=== PATIENT | female | born 1945 | race Caucasian/White ===

== ENCOUNTER → 2017-06-04 | Outpatient (CLI) | payer MEDICARE ==
[~2017-06-04] MED LIST: ADVAIR 500/501 EA INH; ASA81 MG PO; ASPIR 8181 MG PO; B COMPLEX WITH1 EACH PO; B COMPLEX1 EACH PO; BENZONATATE100 MG PO; CARVEDILOL3.125 MG PO; CEFUROXIME250 MG PO; CELEBREX100 MG PO; CO Q-10200 MG PO; CYMBALTA30 MG PO; DICYCLOMINE HCL10 MG PO; DILAUDID2 MG PO; ELAVIL25 MG PO; FAMOTIDINE20 MG PO; HUMALOG100 UNIT/1 SC; HYDROXYZINE HCL25 MG PO; LEVEMIR100 UNIT/1 SC; LEVEMIR100 UNIT/1 SQ; LIDOCAINE; LIDODERM PATCH1 EA; LOSARTAN POTASS25 MG PO; MIRTAZAPINE15 MG PO; MONTELUKAST SOD10 MG PO; MULTAQ 400MG T400 MG PO; NITROGLYCERIN0.4 MG SL; NOVOLOG100 UNIT/1 SQ; OMEGA 3 1,0001 EACH PO; OMEGA-31000 MG PO; OMEPRAZOLE40 MG PO; PROBIOTIC & AC1 EACH PO; ROPINIROLE HCL1 MG PO; XOPENEX HFA15 GM INH; Z.0.ADVAIR 500/501 E; Z.0.ALIGN4 MG PO; Z.0.ALLEGRA180 MG PO; Z.0.AMBIEN CR12.5 MG PO; Z.0.CELEBREX100 MG PO; Z.0.CYMBALTA30 MG PO; Z.0.FORTAMET500 MG PO; Z.0.HEMOCYTE PLUS1 E PO; Z.0.LOSARTAN POTAS10 PO; Z.0.PEPCID40 MG PO; Z.0.PROTONIX40 MG PO; Z.0.SINGULAIR10 MG PO; ZOFRAN ODT4 MG PO; ZYRTEC10 M3 PO; [UNRECOGNIZED DRUG - OTHER] PO; [UNRECOGNIZED DRUG - OTHER] PO; [UNRECOGNIZED DRUG - REMARK] PO
--- NOTE | 2017-06-04 14:15 | Diagnostic Imaging Report ---
PROCEDURE: CT CHEST WITHOUT CONTRAST CT scan of the chest WITHOUT intravenous contrast, using standard protocol. TECHNIQUE: The chest was scanned utilizing a multidetector helical scanner from the apex to the level of the adrenal glands. No IV contrast was administered per physician's request. Coronal and sagittal multiplanar reformations were obtained. COMPARISON: Patients [facility], CT, CT CHEST WO, 07/10/2016, 12:28. INDICATIONS: SHORTNESS OF BREATH FINDINGS: Lines/tubes: None. Lungs and Airways: Stable bilateral lower lobe, lingular, right upper lobe and right middle lobe linear opacities, consistent with scarring. The no consolidation, pulmonary nodules or masses. Stable 1.3 cm, thin-walled cyst in the lingula (series 3, image 54). Stable calcified granuloma in the right middle lobe (series 2, image 64). Airways are clear, without endobronchial lesions. Pleura: No effusion, or pneumothorax. Heart and mediastinum: Stable 1.5 x 1.8 cm nodular density in the left thyroid lobe, with scattered peripheral calcifications. Stable hypodensity in the right thyroid lobe measuring 1.2 x 1.0 cm, with associated dystrophic calcifications (series 2, image 3). Partially visualized 1.8 x 1.4 cm oval-shaped density between the posterior aspect of the right thyroid lobe and the esophagus (series 2, image 1), which is relatively stable when compared to the prior exam. This structure measures fluid density on the current exam, and previously measured soft tissue density. Lymph nodes: No mediastinal, hilar, or axillary adenopathy. Abdomen: Limited views of the upper abdomen show no abnormality within the visualized liver, spleen, or left kidney. Fatty replacement of the pancreas, without focal lesions or dilation.. The adrenal glands are normal. Bones: No aggressive lytic lesion. Soft tissues are grossly unremarkable. IMPRESSION: 1. stable bilateral lower lobe, right upper lobe, lingular, and right middle lobe scarring. No consolidation, nodules, or masses. 2. Stable bilateral thyroid lobe hypodense lesions with associated calcifications, likely reflecting nodules. Dedicated thyroid ultrasound would be helpful for further evaluation. 3. Partially visualized oval shaped density between the posterior aspect of the right thyroid lobe in the esophagus is indeterminate. Although this structure measured soft tissue density on the prior CT, it measures fluid density on the current exam. This may represent an esophageal duplication cyst or diverticulum or less likely bronchogenic cyst. Parathyroid adenoma is still a consideration. Correlate with serum calcium and intact PTH. Osmani Caro M.D. Dictated by: Osmani Caro M.D. on 06/04/2017 at 14:15 Electronically approved by: Osmani Caro M.D. on 06/04/2017 at 14:15
== END ==
LOC: CT 12:51
PROVIDERS: ATTEND Internal Medicine Pulmonary Disease
DX: R06.02 Shortness of breath (principal)
CPT/HCPCS: 71250

== ENCOUNTER → 2017-09-10 | Outpatient (CLI) | payer MEDICARE ==
--- NOTE | 2017-09-10 17:35 | Diagnostic Imaging Report ---
PROCEDURE: Frontal and lateral views of the chest. COMPARISON: Patients [facility], CT, CT CHEST WO, 06/04/2017, 13:33. Patients [facility], DX, CHEST 2 VIEWS, 01/22/2017, 16:54. INDICATIONS: PULMONARY FIBROSIS FINDINGS: Lines/tubes: None. Lungs: The lungs are well inflated. Stable scarring in the right midlung. There is no evidence of pneumonia or pulmonary edema. Pleura: There is no pleural effusion or pneumothorax. Heart and mediastinum: Enlarged cardiac silhouette. Pulmonary vasculature is normal. The Bones: No acute bony abnormality. IMPRESSION: 1. stable scarring in the right midlung. Enlarged cardiac silhouette, without consolidation or pulmonary edema. Osmani Caro M.D. Dictated by: Osmani Caro M.D. on 09/10/2017 at 17:37 Electronically approved by: Osmani Caro M.D. on 09/10/2017 at 17:37
== END ==
LOC: RAD 15:54
PROVIDERS: ATTEND Internal Medicine Pulmonary Disease
DX: R52 Pain, unspecified (principal); J84.10 Pulmonary fibrosis, unspecified
CPT/HCPCS: 71046

== ENCOUNTER 2017-09-29 15:47 | Emergency (ER) | payer MEDICARE ==
[~2017-09-29] VITALS: Ht 157.5 cm; Wt 83.9 kg
[2017-09-29 19:14] LABS: BASOPHILS # (AUTO) 0.1 (0.0-0.1); BASOPHILS % 0.5 % (0.0-1.0); EOSINOPHILS # (AUTO) 0.4 (0.0-0.4); EOSINOPHILS % 2.3 % (0.0-6.0); HEMATOCRIT 44.2 % (34.2-44.1); HEMOGLOBIN 14.4 g/dL (12.0-16.0); LYMPHOCYTES # (AUTO) 5.5 (1.0-3.2); LYMPHOCYTES % 32.8 % (18.0-39.1); MEAN CORPUSCULAR HEMOGLOBIN 29.4 pg (28-32); MEAN CORPUSCULAR HGB CONC 32.6 g/dL (31-35); MEAN CORPUSCULAR VOLUME 90.4 fL (81-99); MONOCYTES # (AUTO) 1.1 (0.2-0.8); MONOCYTES % 6.7 % (4.4-11.3); NEUTROPHILS # (AUTO) 9.7 (2.1-6.9); NEUTROPHILS % 57.3 % (38.7-80.0); PLATELET COUNT 398 x10e3/uL (140-360); RED BLOOD COUNT 4.89 x10e6/uL (3.6-5.1); RED CELL DISTRIBUTION WIDTH 13.6 % (11.7-14.4)
[2017-09-29 19:17] LABS: BILIRUBIN,URINE NEGATIVE (NEGATIVE); CLARITY,URINE SL CLOUDY (CLEAR); COLOR,URINE YELLOW (YELLOW); KETONES,URINE NEGATIVE (NEGATIVE); LEUKOCYTE ESTERASE ,URINE 1+ (NEGATIVE); NITRITE,URINE NEGATIVE (NEGATIVE); PROTEIN,URINE DIPSTICK NEGATIVE (NEGATIVE); URINE UROBILINOGEN 0.2 mg/dL (0.2 - 1)
[2017-09-29 19:24] LABS: PROTHROMBIN TIME 12.4 seconds (11.9-14.5)
[2017-09-29 19:25] LABS: PARTIAL THROMBOPLASTIN TIME 27.9 seconds (23.8-35.5)
[2017-09-29 19:28] LABS: BACTERIA,URINE FEW /HPF; EPITHELIAL CELLS,URINE MODERATE /LPF; TRANSITIONAL EPI CELLS,URINE FEW
[2017-09-29 19:34] LABS: ALANINE AMINOTRANSFERASE 14 IU/L (0-55); ALBUMIN 3.7 g/dL (3.5-5.0); ALKALINE PHOSPHATASE 70 IU/L (40-150); ANION GAP 13.4 mmol/L (8-16); BLOOD UREA NITROGEN 16 mg/dL (7-26); BUN/CREATININE RATIO 22 (6-25); CALCIUM 9.7 mg/dL (8.4-10.2); CARBON DIOXIDE 32 mmol/L (22-29); CHLORIDE 97 mmol/L (98-107); CREATINE KINASE 17 IU/L (29-168); CREATININE, SERUM 0.72 mg/dL (0.57-1.11); EST GLOMERULAR FILTRATION RATE > 60 ML/MIN (60-); GLUCOSE 104 mg/dL (74-118); POTASSIUM 4.4 mmol/L (3.5-5.1); SODIUM 138 mmol/L (136-145)
--- NOTE | 2017-09-29 19:46 | Diagnostic Imaging Report ---
EXAMINATION: CHEST SINGLE (PORTABLE) INDICATION: Pain. Shortness of breath. COMPARISON: None FINDINGS: AP view TUBES and LINES: None. LUNGS: Lungs are well inflated. There are bibasilar atelectasis. Peribronchial cuffing. There is no evidence of pneumonia or pulmonary edema. PLEURA: Small left pleural effusion. HEART AND MEDIASTINUM: Cardiac size is mildly enlarged. BONES AND SOFT TISSUES: No acute osseous lesion. Soft tissues are unremarkable. UPPER ABDOMEN: No free air under the diaphragm. IMPRESSION: 1. Bilateral peribronchial cuffing, which could represent viral etiology or reactive airway disease. This however can be accentuated by the suboptimally inflated lungs. 2. Small left pleural effusion. Signed by: Dr. Alessandro Vidales M.D. on 09/29/2017 7:42 PM
--- NOTE | 2017-09-29 19:47 | Diagnostic Imaging Report ---
Examination: CT head without contrast Clinical Indication: Fall; headaches; nausea. Technique: Transaxial noncontrast images from the skull base through the vertex were obtained. Sagittal and coronal reformatted images were done. Comparison: None. Findings: Scalp: No abnormalities. Bones: Intact. No fractures. No blastic or lytic lesions. Brain sulci: Mild volume loss for patient's age. Ventricles: No hydrocephalus. Extra-axial space: No abnormalities. Parenchyma: There are subtle confluent areas of low-attenuation within subcortical and periventricular white matter, nonspecific, but could represent microvascular ischemic disease. No masses, hemorrhage, or acute or chronic cortical based vascular insults. Suprasellar region: No abnormalities. Craniocervical junction: The foramen magnum is patent. No Chiari one malformation. Incidental findings: Atherosclerotic calcification of the cavernous and supraclinoid internal carotid arteries. Impression: 1. No acute intracranial finding. 2. Mild chronic microvascular ischemic change and mild volume loss. Signed by: Dr. Nazia Bean M.D. on 09/29/2017 7:43 PM
--- NOTE | 2017-09-29 19:53 | Diagnostic Imaging Report ---
Examination: CT CERVICAL SPINE WITHOUT CONTRAST HISTORY:Neck pain. Fall. COMPARISON:None. TECHNIQUE: Multidetector helical axial images were obtained without contrast from the foramen magnum to T1. Coronal and sagittal reformatted images were done. Bone and soft tissue windows were evaluated. FINDINGS: Alignment:Normal alignment and lordosis. Vertebrae: Normal height and density. No acute fracture, infection or neoplasm. Disc space heights: Normal height. Caliber of spinal canal: Developmentally normal. Posterior fossa and craniocervical junction: Foramen magnum patent. No Chiari 1 malformation. Soft tissues: No abnormality. Degenerative changes: Anterior osteophytosis from C4 through T1. No disc bulge/ herniation or foraminal or canal stenosis. IMPRESSION: No acute abnormalities. Signed by: Dr. Nazia Bean M.D. on 09/29/2017 7:49 PM
[2017-09-29 19:55] LABS: LYMPHOCYTES % (MANUAL) 34 % (19-48); MONOCYTES % (MANUAL) 6 % (3.4-9.0); NEUTROPHILS % (MANUAL) 56 % (40-74); PLATELET ESTIMATE ADEQUATE; PLATELET MORPHOLOGY COMMENT FEW LARGE; RBC MORPHOLOGY COMMENT NORMAL
[2017-09-29] MEDS ORDERED: KETOROLAC TROMETHAMINE 30 MG/ML VIAL IV NR (20:01)
[2017-09-29] MEDS ORDERED: CEFTRIAXONE SOD 1 GM VIAL IV NR (20:01)
[2017-09-29] MEDS ORDERED: DIPHENHYDRAMINE HCL INJ 50 MG/ML VIAL IV NR (20:02)
[2017-09-29] MEDS ORDERED: SODIUM CHLORIDE 0.9% 500ML 500 ML IV STA (20:15)
[2017-09-29] MEDS ORDERED: SODIUM CHLORIDE 0.9% 500ML 500 ML IV ONE (20:15)
[2017-09-29] MEDS ORDERED: METOCLOPRAMIDE HCL 10 MG/2ML VIAL IV NR (20:15)
[2017-09-29] MEDS ORDERED: ONDANSETRON HCL INJ 2 MG/ML VIAL IV NR (20:30)
[2017-09-29] MEDS ORDERED: CEFTRIAXONE SOD 1 GM VIAL IV SCH (20:45)
[2017-09-29 22:25] VITALS: BP 136/60
== END 2017-09-29 23:10 | disposition home or self-care (01) ==
LOC: ER 15:47
DX: R51 Headache (principal); R11.0 Nausea; N39.0 Urinary tract infection, site not specified; E11.9 Type 2 diabetes mellitus without complications; M79.7 Fibromyalgia; J44.9 Chronic obstructive pulmonary disease, unspecified
CPT/HCPCS: 36415; 70450; 71045; 72125; 80053; 81001; 82550; 82553; 84484; 85025; 85610; 85730; 87086; 93005; 99284; J0696; J1200; J1885; J2765; J7040

== ENCOUNTER → 2017-11-03 | Day surgery (SDC) | payer MEDICARE ==
[2017-11-02 17:46] LABS: BASOPHILS # (AUTO) 0.1 (0.0-0.1); BASOPHILS % 0.3 % (0.0-1.0); EOSINOPHILS # (AUTO) 0.3 (0.0-0.4); EOSINOPHILS % 2.3 % (0.0-6.0); HEMATOCRIT 40.9 % (34.2-44.1); HEMOGLOBIN 13.1 g/dL (12.0-16.0); LYMPHOCYTES # (AUTO) 4.3 (1.0-3.2); LYMPHOCYTES % 29.4 % (18.0-39.1); MEAN CORPUSCULAR HEMOGLOBIN 29.3 pg (28-32); MEAN CORPUSCULAR VOLUME 91.5 fL (81-99); MONOCYTES % 6.9 % (4.4-11.3); NEUTROPHILS # (AUTO) 8.8 (2.1-6.9); NEUTROPHILS % 60.8 % (38.7-80.0); PLATELET COUNT 318 x10e3/uL (140-360); RED BLOOD COUNT 4.47 x10e6/uL (3.6-5.1); RED CELL DISTRIBUTION WIDTH 13.3 % (11.7-14.4)
[~2017-11-03] MED LIST changes: +CLOTRIMAZOLE-BE15 GM TOP; +DILAUDID IJ; +ECONAZOLE NITRA15 GM TOP; +FENTANYL CITRATE/PF 100MCG/2 ML INJ ONE; +LIDOCAINE HCL 2% LOCAL INJ 5 ML SDV VIAL INJ ONE; +LIDODERM PATCH TD; +MIDAZOLAM HCL 2 MG/2 ML VIAL ONE; +PROPOFOL IV EMULSION 10 MG/ML 50 ML VIAL ONE; +TYLENOL WITH C1 EACH PO; +VITAMIN D1000 UNI1 PO; +XOPENEX0.63 MG/3 NEB
== END | disposition home or self-care (01) ==
LOC: OR 06:01
PROVIDERS: ATTEND Internal Medicine Gastroenterology
DX: K21.0 Gastro-esophageal reflux disease with esophagitis (principal); K29.50 Unspecified chronic gastritis without bleeding; B96.81 Helicobacter pylori [H. pylori] as the cause of diseases classified elsewhere; K44.9 Diaphragmatic hernia without obstruction or gangrene; J44.9 Chronic obstructive pulmonary disease, unspecified; I10 Essential (primary) hypertension; E78.5 Hyperlipidemia, unspecified; E11.9 Type 2 diabetes mellitus without complications; M79.7 Fibromyalgia; M19.90 Unspecified osteoarthritis, unspecified site; R42 Dizziness and giddiness; F32.9 Major depressive disorder, single episode, unspecified; F41.9 Anxiety disorder, unspecified; Z88.8 Allergy status to other drugs, medicaments and biological substances; Z88.6 Allergy status to analgesic agent; Z88.3 Allergy status to other anti-infective agents; Z91.041 Radiographic dye allergy status; Z01.810 Encounter for preprocedural cardiovascular examination; Z01.812 Encounter for preprocedural laboratory examination; Z79.82 Long term (current) use of aspirin; Z99.81 Dependence on supplemental oxygen; Z79.4 Long term (current) use of insulin; Z68.34 Body mass index [BMI] 34.0-34.9, adult; Z87.01 Personal history of pneumonia (recurrent); Z80.0 Family history of malignant neoplasm of digestive organs
CPT/HCPCS: 36415 ×2; 43239; 82948; 85025; 88305; 88312; 93005; J2001; J2250

== ENCOUNTER → 2018-03-15 | Outpatient (CLI) | payer MEDICARE ==
[~2018-03-15] MED LIST changes: -FENTANYL CITRATE/PF 100MCG/2 ML INJ ONE; -LIDOCAINE HCL 2% LOCAL INJ 5 ML SDV VIAL INJ ONE; -MIDAZOLAM HCL 2 MG/2 ML VIAL ONE; -PROPOFOL IV EMULSION 10 MG/ML 50 ML VIAL ONE
--- NOTE | 2018-03-15 19:17 | Diagnostic Imaging Report ---
EXAMINATION: CHEST 2 VIEWS INDICATION: ACUTE BRONCHITIS COMPARISON: 09/29/2017. FINDINGS: TUBES and LINES: None. LUNGS: Platelike atelectasis in the right midlung. Mild patchy density in the lung bases suggestive of subsegmental atelectasis. Mild bilateral perihilar peribronchial thickening perihilar streaky densities. There is no evidence of pneumonia or pulmonary edema. PLEURA: No pleural effusion or pneumothorax. HEART AND MEDIASTINUM: The cardiac silhouette is mildly enlarged. Calcification of the aortic arch. BONES AND SOFT TISSUES: No acute osseous lesion. Soft tissues are unremarkable. UPPER ABDOMEN: No free air under the diaphragm. IMPRESSION: Mild bilateral perihilar peribronchial thickening and perihilar streaky densities may represent viral infection versus reactive airway disease. No consolidation. Signed by: Dr. Meño Beckman M.D. on 03/15/2018 7:14 PM
== END ==
LOC: RAD 17:43
PROVIDERS: ATTEND Internal Medicine
DX: J20.9 Acute bronchitis, unspecified (principal)
CPT/HCPCS: 71046

== ENCOUNTER → 2018-06-01 | Day surgery (SDC) | payer MEDICARE ==
[~2018-06-01] MED LIST changes: +COQ-10100 MG PO; +EPHEDRINE SULFATE INJ 50 MG/10 ML SYR ONE; +HUMALOG MI100 UNIT/4 SQ; +NORCO 7.5-3251 EACH PO; +PHENYLEPHRINE HCL 1% 10 MG/ML VIAL ONE; +PROBIOTIC PO; +PROPOFOL IV EMULSION 10 MG/ML 50 ML VIAL ONE; +SPIRIVA18 MCG INH
--- OUTSIDE RECORDS SUMMARY | 2018-06-01 06:52 | XMS REPORT | Continuity of Care Document ---
Author Author [facility] Interface Address Unknown Phone Unavailable Problems Problem Status Onset Date Classification Date Reported Comments Source Pneumonia Active 04/23/2015 Problem 09/30/2017 [facility] BACK PAIN Active 09/12/2012 [facility] 724.6, ANKYLOSIS OF LUMBOSACRAL JOINT Active 09/03/2012 [facility] Asthma Resolved Problem 09/17/2012 [facility] Chronic pain<sup>1</sup> Resolved Problem 09/17/2012 1Lumbar spine [facility] Diabetes mellitus Resolved Problem 09/17/2012 [facility] GERD - Gastro-esophageal reflux disease Resolved Problem 09/17/2012 [facility] HTN - Hypertension Resolved Problem 09/17/2012 [facility] Anemia Active Problem 09/30/2017 [facility] Leukocytosis Active Problem 09/30/2017 [facility] SPINAL STENOSIS NOS Active [facility] Medications Medication Details Route Status Patient Instructions Ordering Provider Order Date Source Cefuroxime Axetil (Cefuroxime) 250 Mg Tablet Every 12 Hours Active [place] 11/13/2016 [facility] Dronedarone (Multaq 400MG Tablets*) 400 Mg Tab Twice Daily With Meals Active [place] 11/13/2016 [facility] Amitriptyline Hcl (Elavil) 25 Mg Tab, 1 Tab Oral Daily Active 05/31/2015 [facility] Aspirin (Asa) 81 Mg Tab, 1 Tab Oral Daily Active 05/31/2015 [facility] Benzonatate 100 Mg Capsule, 200 Mg Oral Three Times A Day Active 05/31/2015 [facility] Bifidobacterium Infantis (Align) 4 Mg Capsule, 2 Tab Oral Daily Active 05/31/2015 [facility] Celecoxib (Celebrex) 100 Mg Capsule, 2 Tab Oral Daily Active 05/31/2015 [facility] Cholestof , 1 Tab Oral Every 24 Hours as needed for Prn Active 05/31/2015 [facility] Dicyclomine Hcl 10 Mg Capsule, 1 Tab Oral Bedtime Active 05/31/2015 [facility] Duloxetine Hcl (Cymbalta) 30 Mg Capsule., 1 Tab Oral Daily Active 05/31/2015 [facility] Famotidine (Pepcid) 40 Mg Tablet, 1 Tab Oral Daily Active 05/31/2015 [facility] Fe Fumarate/Fa/Vit Bcomp&C/Min (Hemocyte Plus Capsule) 1 Each Capsule, 2 Tab Oral Daily Active 05/31/2015 [facility] Fexofenadine Hcl (Edel) 180 Mg Tablet, 1 Tab Oral Daily Active 05/31/2015 [facility] Hydrocodone Bit/Acetaminophen (Anexsia 7.5-650 Tablet) 1 Each Tablet, 1 Tab Oral As Needed Active 05/31/2015 [facility] Insulin Aspart (Novolog) 100 Unit/1 Ml Cartridge, 6 Units Sub-Q Before Meals And At Bedtime Active 05/31/2015 [facility] Insulin Detemir (Levemir) 100 Unit/1 Ml Vial, 28 Units Sub-Q Before Breakfast Active 05/31/2015 [facility] Lactobac Cmb #3/Fos/Pantethine (Probiotic & Acidophilus Cap) 1 Each Capsule, 1 Cap Oral Every 24 Hours as needed for Constipation Active 05/31/2015 [facility] Lidocaine (Lidoderm Patch) 1 Ea Patch, 1 As Needed Active 05/31/2015 [facility] Losartan Potassium 25 Mg Tablet, 25 Mg Oral Twice A Day Active 05/31/2015 [facility] Metformin Hcl (Fortamet) 500 Mg Tab.osm.24, 2 Tab Oral Daily Active 05/31/2015 [facility] Montelukast Sodium (Singulair) 10 Mg Tablet, 1 Tab Oral Daily Active 05/31/2015 [facility] Gervais-3 Fatty Acids/Fish Oil (Gervais 3 1,000 Mg Softgel) 1 Each Capsule, 1 Tab Oral Daily At 1700 Active 05/31/2015 [facility] Pantoprazole Sodium (Protonix) 40 Mg Tablet.dr, 1 Tab Oral Daily Active 05/31/2015 [facility] Plant Stanol Brunilda (Cholest Off) 450 Mg Tablet, 1800 Mg Oral Twice A Day Active 05/31/2015 [facility] Salmeterol Xinaf/Fluticasone (Advair 500/50) 1 Ea Aerp, 2 Daily Active 05/31/2015 [facility] Salmeterol Xinafoate/Fluticasone (Advair 500/50*) 1 Ea Aerp, 1 Puff Inhalation As Needed Active 05/31/2015 [facility] Vitamin B Complex & Vit C No.3 (B Complex With Vitamin C) 1 Each Capsule, 1 Tab Oral Daily At 1700 Active 05/31/2015 [facility] Zolpidem Tartrate (Ambien Cr) 12.5 Mg Tab.mphase, 1 Tab Oral Daily Active 05/31/2015 [facility] [place] 10/325 oral tablet 1 tab, Route: PO, Drug Form: TAB, Dosing Weight 75, kg, ONCE, Start date: 09/12/12 23:01:00, Stop date: 09/12/12 23:01:00 PO No Longer Active [place] 09/13/2012 [facility] [place] 10/325 oral tablet 1 tab, PO, Q6H, PRN, 24 tab, for pain, Substitution Allowed, Maintenance PO Active [place] 09/13/2012 [facility] Dilaudid 1 mg, 0.5 mL, Route: SUB-Q, Drug form: INJ, ONCE, Dosing Weight 75, kg, Start date: 09/12/12 21:59:00, Stop date: 09/12/12 21:59:00 SUB-Q No Longer Active [place] 09/13/2012 [facility] Vitamin B12 500 microgram, PO, Daily, Substitution Allowed PO Active 09/13/2012 [facility] Zyrtec 10 mg oral tablet 10 mg, 1 tab, PO, Daily, PRN, 30 tab, as needed for allergy symptoms, Substitution Allowed, TAB PO Active 09/13/2012 [facility] Voltaren Topical 1% topical gel 1 appl, TOP, QID, PRN, 100 gm, pain, Substitution Allowed, GEL TOP Active 09/13/2012 [facility] Dilaudid 1 mg, Route: SUB-Q, ONCE, Dosing Weight 75, kg, Start date: 09/12/12 20:50:00, Stop date: 09/12/12 20:50:00 SUB-Q No Longer Active [place] 09/13/2012 [facility] fentanyl 50 mcg, TOP, Q---Sa, Substitution Allowed, ERFILM TOP Active 09/13/2012 [facility] Lidoderm 5% topical film (patch) Substitution Allowed Active 09/13/2012 [facility] pantoprazole 40 mg oral enteric coated tablet 40 mg, 1 tab, PO, BID, 90 tab, Substitution Allowed, ECTAB PO Active 09/13/2012 [facility] glimepiride 1 mg oral tablet 1 mg, 1 tab, PO, Daily, 90 tab, Substitution Allowed, TAB PO Active 09/13/2012 [facility] Cymbalta 30 mg oral delayed release capsule 30 mg, 1 cap, PO, BID, 180 cap, Substitution Allowed, ECCAP PO Active 09/13/2012 [facility] montelukast 10 mg oral tablet 10 mg, 1 tab, PO, Bedtime, 90 tab, Substitution Allowed, TAB PO Active 09/13/2012 [facility] losartan 100 mg oral tablet 100 mg, 1 tab, PO, Daily, 90 tab, Substitution Allowed, TAB PO Active 09/13/2012 [facility] Ambien CR 6.25 mg oral tablet, extended release 6.25 mg, 1 tab, PO, Bedtime, PRN, for sleep, Substitution Allowed, ERTAB PO Active 09/13/2012 [facility] [place] 10/325 oral tablet 1 tab, PO, Q6H, PRN, 24 tab, for pain, Substitution Allowed, Maintenance PO Active 09/13/2012 [facility] Probiotic Formula oral capsule Substitution Allowed, Maintenance Active 09/13/2012 [facility] Celebrex 100 mg oral capsule 100 mg, 1 cap, PO, Daily, 180 cap, Substitution Allowed, CAP PO Active 09/13/2012 [facility] Aspirin (Aspir 81) 81 Mg Tablet. Daily Active [facility] Carvedilol 3.125 Mg Tablet Twice A Day Active [facility] Celecoxib (Celebrex*) 100 Mg Capsule Daily Active [facility] Cetirizine Hcl (Zyrtec) 10 Mg Capsule Daily Active THERAPEUTICALLY SUBSTITUTED WITH LORATIDINE 10MG [facility] Duloxetine Hcl (Cymbalta) 30 Mg Capsule. Twice A Day Active [facility] Famotidine 20 Mg Tab Daily Active [facility] Hydromorphone Hcl (Dilaudid) 2 Mg Tab Every 6 Hours as needed for Pain Active [facility] Hydroxyzine Hcl 25 Mg Tablet Every 6 Hours as needed for Itching Active [facility] Insulin Detemir (Levemir) 100 Unit/1 Ml Vial Daily Active [facility] Insulin Lispro (Humalog) 100 Unit/1 Ml Cartridge Three Times Daily With Meals Active [facility] Lactobac Cmb #3/Fos/Pantethine (Probiotic & Acidophilus Cap) 1 Each Capsule Daily Active [facility] Levalbuterol Tartrate (Xopenex Hfa) 15 Gm Hfa.aer.ad Every 4 Hours Active [facility] Lidodderm Patch Active [facility] Losartan Potassium 25 Mg Tablet Daily Active [facility] Mirtazapine 15 Mg Tab Daily Active [facility] Montelukast Sodium 10 Mg Tablet Daily Active [facility] Nitroglycerin 0.4 Mg Tab.subl Every 5 Minutes Active [facility] Gervais-3 Fatty Acids (Gervais-3) 1,000 Mg Capsule Daily Active [facility] Omeprazole 40 Mg Capsule. Daily Active [facility] Ondansetron (Zofran Odt) 4 Mg Tab.rapdis Every 8 Hours as needed for Nausea And Vomiting Active [facility] Ropinirole Hcl 1 Mg Tablet Bedtime Active [facility] Ubidecarenone (Co Q-10) 200 Mg Capsule Daily Active [facility] Vitamin B Complex (B Complex) 1 Each Tablet Daily Active [facility] Allergies, Adverse Reactions, Alerts Substance Category Reaction Severity Reaction type Status Date Reported Comments Source Nitroglycerin Rash Unknown Allergy to Substance Active 09/29/2017 [facility] Iodine Unknown Allergy to Substance Active 09/29/2017 [facility] Oxycodone Unknown Allergy to Substance Active 09/29/2017 [facility] Levofloxacin Unknown Allergy to Substance Active 09/29/2017 [facility] iodine topical drug allergy Allergy Active [facility] Levaquin drug allergy Allergy Active [facility] Nitro-Bid drug allergy Allergy Active [facility] Percodan drug allergy Allergy Active [facility] Immunizations Immunization Date Given Site Status Last Updated Comments Source Results Order Name Results Value Reference Range Date Interpretation Comments Source Activated partial thromboplastin time (aPTT) in platelet poor plasma bycoagulation assay Activated partial thromboplastin time (aPTT) in platelet poor plasma bycoagulation assay 27.9 23.8 - 35.5 09/29/2017 [facility] Automated blood basophil count (count/volume) Automated blood basophil count (count/volume) 0.1 0.0 - 0.1 09/29/2017 [facility] Automated blood basophil count as percentage of total leukocytes Automated blood basophil count as percentage of total leukocytes 0.5 0.0 - 1.0 09/29/2017 [facility] Automated blood eosinophil count Automated blood eosinophil count 0.4 0.0 - 0.4 09/29/2017 [facility] Automated blood eosinophil count as percentage of total leukocytes Automated blood eosinophil count as percentage of total leukocytes 2.3 0.0 - 6.0 09/29/2017 [facility] Automated blood hematocrit (volume fraction) Automated blood hematocrit (volume fraction) 44.2 34.2 - 44.1 09/29/2017 [facility] Automated blood lymphocyte count as percentage ot total leukocytes Automated blood lymphocyte count as percentage ot total leukocytes 32.8 18.0 - 39.1 09/29/2017 [facility] Automated blood monocyte count as percentage of total leukocytes Automated blood monocyte count as percentage of total leukocytes 6.7 4.4 - 11.3 09/29/2017 [facility] Automated blood neutrophil count Automated blood neutrophil count 9.7 2.1 - 6.9 09/29/2017 [facility] Automated blood platelet count (count/volume) Automated blood platelet count (count/volume) 398 140 - 360 09/29/2017 [facility] Automated blood segmented neutrophil count as percentage of total leukocytes Automated blood segmented neutrophil count as percentage of total leukocytes 57.3 38.7 - 80.0 09/29/2017 [facility] Automated erythrocyte mean corpuscular hemoglobin (mass per erythrocyte) Automated erythrocyte mean corpuscular hemoglobin (mass per erythrocyte) 29.4 28 - 32 09/29/2017 [facility] Automated erythrocyte mean corpuscular hemoglobin concentration measurement (mass/volume) Automated erythrocyte mean corpuscular hemoglobin concentration measurement (mass/volume) 32.6 31 - 35 09/29/2017 [facility] Automated erythrocyte mean corpuscular volume Automated erythrocyte mean corpuscular volume 90.4 81 - 99 09/29/2017 [facility] Blood erythrocytes automated count (number/volume) Blood erythrocytes automated count (number/volume) 4.89 3.6 - 5.1 09/29/2017 [facility] Blood hemoglobin measurement (moles/volume) Blood hemoglobin measurement (moles/volume) 14.4 12.0 - 16.0 09/29/2017 [facility] Blood leukocytes automated count (number/volume) Blood leukocytes automated count (number/volume) 16.91 4.8 - 10.8 09/29/2017 [facility] Blood lymphocytes count (number/volume) Blood lymphocytes count (number/volume) 5.5 1.0 - 3.2 09/29/2017 [facility] Blood lymphocytes variant count (number/volume) Blood lymphocytes variant count (number/volume) 4 09/29/2017 [facility] Blood monocytes automated count (number/volume) Blood monocytes automated count (number/volume) 1.1 0.2 - 0.8 09/29/2017 [facility] Blood platelets count by estimate (number/volume) Blood platelets count by estimate (number/volume) ADEQUATE 09/29/2017 [facility] Estimated glomerular filtration rate (GFR) determination Estimated glomerular filtration rate (GFR) determination null 60 09/29/2017 [facility] Glucose measurement Glucose measurement 104 74 - 118 09/29/2017 [facility] INR in Platelet poor plasma by Coagulation assay INR in Platelet poor plasma by Coagulation assay 1.00 09/29/2017 [facility] Manual blood lymphocytes/100 leukocytes Manual blood lymphocytes/100 leukocytes 34 19 - 48 09/29/2017 [facility] Manual blood monocytes/100 leukocytes Manual blood monocytes/100 leukocytes 6 3.4 - 9.0 09/29/2017 [facility] Manual blood neutrophils/100 leukocytes Manual blood neutrophils/100 leukocytes 56 40 - 74 09/29/2017 [facility] Plasma globulin measurement (mass/volume) Plasma globulin measurement (mass/volume) 3.8 2.3 - 3.5 09/29/2017 [facility] Platelet morphology Platelet morphology FEW LARGE 09/29/2017 [facility] Prothrombin time (PT) in platelet poor plasma by coagulation assay Prothrombin time (PT) in platelet poor plasma by coagulation assay 12.4 11.9 - 14.5 09/29/2017 [facility] RBC morphology RBC morphology NORMAL 09/29/2017 [facility] Serum or plasma alanine aminotransferase measurement (enzymatic activity/volume) Serum or plasma alanine aminotransferase measurement (enzymatic activity/volume) 14 0 - 55 09/29/2017 [facility] Serum or plasma albumin measurement (mass/volume) Serum or plasma albumin measurement (mass/volume) 3.7 3.5 - 5.0 09/29/2017 [facility] Serum or plasma albumin/globulin mass ratio Serum or plasma albumin/globulin mass ratio 1.0 0.8 - 2.0 09/29/2017 [facility] Serum or plasma alkaline phosphatase measurement (enzymatic activity/volume) Serum or plasma alkaline phosphatase measurement (enzymatic activity/volume) 70 40 - 150 09/29/2017 [facility] Serum or plasma anion gap Serum or plasma anion gap 13.4 8 - 16 09/29/2017 [facility] Serum or plasma calcium measurement (mass/volume) Serum or plasma calcium measurement (mass/volume) 9.7 8.4 - 10.2 09/29/2017 [facility] Serum or plasma carbon dioxide, total measurement (moles/volume) Serum or plasma carbon dioxide, total measurement (moles/volume) 32 22 - 29 09/29/2017 [facility] Serum or plasma chloride measurement (moles/volume) Serum or plasma chloride measurement (moles/volume) 97 98 - 107 09/29/2017 [facility] Serum or plasma creatine kinase MB measurement (mass/volume) Serum or plasma creatine kinase MB measurement (mass/volume) 0.80 0 - 5.0 09/29/2017 [facility] Serum or plasma creatine kinase measurement (enzymatic activity/volume) Serum or plasma creatine kinase measurement (enzymatic activity/volume) 17 29 - 168 09/29/2017 [facility] Serum or plasma creatinine measurement (mass/volume) Serum or plasma creatinine measurement (mass/volume) 0.72 0.57 - 1.11 09/29/2017 [facility] Serum or plasma potassium measurement (moles/volume) Serum or plasma potassium measurement (moles/volume) 4.4 3.5 - 5.1 09/29/2017 [facility] Serum or plasma protein measurement (mass/volume) Serum or plasma protein measurement (mass/volume) 7.5 6.5 - 8.1 09/29/2017 [facility] Serum or plasma sodium measurement (moles/volume) Serum or plasma sodium measurement (moles/volume) 138 136 - 145 09/29/2017 [facility] Serum or plasma total bilirubin measurement (mass/volume) Serum or plasma total bilirubin measurement (mass/volume) 0.3 0.2 - 1.2 09/29/2017 [facility] Serum or plasma urea nitrogen measurement (mass/volume) Serum or plasma urea nitrogen measurement (mass/volume) 16 7 - 26 09/29/2017 [facility] Serum or plasma urea nitrogen/creatinine mass ratio Serum or plasma urea nitrogen/creatinine mass ratio 22 6 - 25 09/29/2017 [facility] Troponin I measurement by highly sensitive enzyme immunoassay Troponin I measurement by highly sensitive enzyme immunoassay null 0 - 0.300 09/29/2017 [facility] Red Cell Distribution Width 13.6 11.7 - 14.4 09/29/2017 [facility] IM GRANULOCYTES % 0.4 0.0 - 1.0 09/29/2017 [facility] Absolute Immature Granulocyte (auto 0.07 0 - 0.1 09/29/2017 [facility] Differential Total Cells Counted 100 09/29/2017 [facility] Aspartate Amino Transf (AST/SGOT) 21 5 - 34 09/29/2017 [facility] Automated urine sediment leukocyte count by microscopy (number/high power field) Automated urine sediment leukocyte count by microscopy (number/high power field) null 0 - 5 09/29/2017 [facility] Bacteria detection in urine sediment by light microscopy Bacteria detection in urine sediment by light microscopy FEW NONE 09/29/2017 [facility] Epithelial cells detection in urine sediment by light microscopy Epithelial cells detection in urine sediment by light microscopy MODERATE NONE 09/29/2017 [facility] Erythrocytes detection in urine sediment by light microscopy Erythrocytes detection in urine sediment by light microscopy NONE 0 - 5 09/29/2017 [facility] Specific gravity of Urine by Test strip Specific gravity of Urine by Test strip 1.010 1.010 - 1.025 09/29/2017 [facility] Transitional cells detection in urine sediment by light microscopy Transitional cells detection in urine sediment by light microscopy FEW NONE 09/29/2017 [facility] Urine clarity Urine clarity SL CLOUDY CLEAR 09/29/2017 [facility] Urine color determination Urine color determination YELLOW YELLOW 09/29/2017 [facility] Urine erythrocytes detection Urine erythrocytes detection NEGATIVE NEGATIVE 09/29/2017 [facility] Urine glucose detection Urine glucose detection NEGATIVE NEGATIVE 09/29/2017 [facility] Urine ketones detection by automated test strip Urine ketones detection by automated test strip NEGATIVE NEGATIVE 09/29/2017 [facility] Urine leukocyte esterase detection by dipstick Urine leukocyte esterase detection by dipstick 1+ NEGATIVE 09/29/2017 [facility] Urine nitrite detection Urine nitrite detection NEGATIVE NEGATIVE 09/29/2017 [facility] Urine pH measurement by automated test strip Urine pH measurement by automated test strip 6 5 - 7 09/29/2017 [facility] Urine protein measurement by test strip (mass/volume) Urine protein measurement by test strip (mass/volume) NEGATIVE NEGATIVE 09/29/2017 [facility] Urine total bilirubin measurement (mass/volume) Urine total bilirubin measurement (mass/volume) NEGATIVE NEGATIVE 09/29/2017 [facility] Urine urobilinogen measurement by test strip (mass/volume) Urine urobilinogen measurement by test strip (mass/volume) 0.2 0.2 - 1 09/29/2017 [facility] Spine lumbar wo contrast CT Spine lumbar wo contrast CT EXAM: CT lumbar spine DATE: Sep 12, 2012 09:52:30 PM. INDICATION: Backache. COMPARISON: CT lumbar spine September 12, 2012. TECHNIQUE: Axial images of the lumbar spine were obtained without contrast. Sagittal and coronal reformats were provided. FINDINGS: Vertebral body height is maintained. Streak artifact from metallic hardware limits evaluation. There stable postoperative changes with posterior fusion an transpedicular screws at L4, L5 and S1 bilaterally, not significantly changed from prior examination with no evidence of hardware failure or loosening. Additionally, stabilization screw in the anterior aspect of the L4 vertebral body is redemonstrated. There is no intrusion into the foramina or spinal canal. Disc spaces maintained. Redemonstrated is anterolisthesis of L5 on S1, not significantly changed from prior CT obtained 2 days prior, secondary to bilateral pars defects. Although metallic hardware limits evaluation of the spinal canal at the level of the fusion, no significant neural foraminal narrowing or central canal narrowing is noted. Mild annular bulge at L4/5 is present without mass effect on the ventral aspect of the thecal sac. Impression: 1. No significant change from prior exam. 2. No evidence of hardware failure or loosening 3. No significant neural foraminal or spinal canal narrowing. Notably, hardware limits evaluation of the spinal canal due to streak artifact at levels of the fusion. 09/12/2012 - - This report was dictated by a Manager Advanced/Fellow. I have personally reviewed the images as well as the Resident's interpretation and agree with the findings. Read by: Sharon Avalos Resident: Sharon Avalos Dictated Date/time: 09/12/12 22:20 Electronically Signed by: Caridad Wong MD 09/12/12 22:56 FINAL REPORT [facility] Vital Signs Vital Sign Value Date Comments Source Weight 75 09/13/2012 [facility] Height 157.48 cm 09/13/2012 [facility] Encounters Location Location Details Encounter Type Encounter Number Reason For Visit Attending Provider ADM Date DC Date Status Source [facility] Emergency [id number] KATINA PAREDES 09/12/2012 09/12/2012 Active [facility] Out[facility] [id number] 724.6, ANKYLOSIS OF LUMBOSACRAL JOINT DANGELO CLIF 09/15/2012 Active [facility] [id number] INESSA ONEAL MD 01/22/2017 [facility] [id number] INESSA ONEAL MD 06/04/2017 [facility] [id number] INESSA ONEAL MD 09/10/2017 [facility] Departed Emergency Room [id number] TIERRA LEE MD 09/29/2017 09/29/2017 [facility] Procedures Procedure Code Date Perfomer Comments Source Computed tomography of brain without radiopaque contrast [id number] 09/29/2017 [facility] Computed tomography of cervical spine without contrast [id number] 09/29/2017 [facility] X-ray of chest, two views [id number] 09/10/2017 [facility] [place] Computed tomography of chest without contrast [id number] 06/04/2017 [facility] [place] X-ray of chest, two views [id number] 01/22/2017 [facility] [place] Lumbar spinal fusion [id number] [facility]
[2018-06-01 12:10] VITALS: BP 127/58
== END | disposition home or self-care (01) ==
LOC: OR 06:49
PROVIDERS: ATTEND Internal Medicine Gastroenterology
DX: R10.32 Left lower quadrant pain (principal); D12.2 Benign neoplasm of ascending colon; K64.8 Other hemorrhoids; K57.30 Diverticulosis of large intestine without perforation or abscess without bleeding; K21.9 Gastro-esophageal reflux disease without esophagitis; K44.9 Diaphragmatic hernia without obstruction or gangrene; E11.9 Type 2 diabetes mellitus without complications; Z79.84 Long term (current) use of oral hypoglycemic drugs; Z79.4 Long term (current) use of insulin; I10 Essential (primary) hypertension; E78.5 Hyperlipidemia, unspecified; I48.91 Unspecified atrial fibrillation; M79.7 Fibromyalgia; J44.9 Chronic obstructive pulmonary disease, unspecified; Z99.81 Dependence on supplemental oxygen; Z79.82 Long term (current) use of aspirin
CPT/HCPCS: 36415; 45384; 82948; 88305; J2370; J2704; 45378

== ENCOUNTER → 2018-06-30 | Outpatient (CLI) | payer MEDICARE ==
[~2018-06-30] MED LIST changes: -EPHEDRINE SULFATE INJ 50 MG/10 ML SYR ONE; -PHENYLEPHRINE HCL 1% 10 MG/ML VIAL ONE; -PROPOFOL IV EMULSION 10 MG/ML 50 ML VIAL ONE
--- NOTE | 2018-06-30 17:32 | Diagnostic Imaging Report ---
Frontal and lateral views of the chest. HISTORY: Coughing, wheezing, POST INFLAMMATORY PULMONARY FIBROSIS COMPARISON: Chest radiograph March 15, 2018. DISCUSSION: Lungs: Low lung volumes result in bibasilar vascular crowding, accentuation of the pulmonary interstitial markings, central pulmonary vasculature, and the cardiac silhouette. Allowing for these limitations, the findings are as follows: Right midlung and left basilar atelectasis, slightly increased. Mild prominence of the central peribronchial interstitial markings. No evidence of a consolidative pneumonia or pulmonary alveolar edema. Pleura: No pleural effusion or pneumothorax. Heart and mediastinum: Appears unchanged. Bones and soft tissues: Appears unchanged. IMPRESSION: 1. Mildly increased atelectasis. 2. Findings which may reflect a nonspecific bronchitis. 3. No consolidative pneumonia. Signed by: Dr. Bishop Grajeda D.O., M.M.M. on 06/30/2018 5:28 PM
== END ==
LOC: RAD 16:21
PROVIDERS: ATTEND Internal Medicine Pulmonary Disease
DX: J84.10 Pulmonary fibrosis, unspecified (principal); R05 Cough
CPT/HCPCS: 71046

== ENCOUNTER 2018-10-15 12:20 | Inpatient (IN) | payer MEDICARE ==
[~2018-10-15] VITALS: Ht 157.5 cm; Wt 83.9 kg
--- OUTSIDE RECORDS SUMMARY | 2018-10-15 12:24 | XMS REPORT | Continuity of Care Document ---
Author Author [employer] (formerly [employer]) Address Unknown Phone Unavailable Care Team Providers Care Professor Of Medicine Name Role Phone Include Fitness Information Cliq Unavailable Unavailable Problems Problem Status Onset Date Classification Date Reported Comments Source Pneumonia Active 04/23/2015 Problem 09/30/2017 [facility] BACK PAIN Active 09/12/2012 [facility] 724.6, ANKYLOSIS OF LUMBOSACRAL JOINT Active 09/03/2012 [facility] Asthma Resolved Problem 09/17/2012 [facility] Chronic pain1 Resolved Problem 09/17/2012 1Lumbar spine [facility] Diabetes mellitus Resolved Problem 09/17/2012 [facility] GERD - Gastro-esophageal reflux disease Resolved Problem 09/17/2012 [facility] HTN - Hypertension Resolved Problem 09/17/2012 [facility] Anemia Active Problem 09/30/2017 [facility] Leukocytosis Active Problem 09/30/2017 [facility] SPINAL STENOSIS NOS Active [facility] Medications Medication Details Route Status Patient Instructions Ordering Provider Order Date Source Cefuroxime Axetil (Cefuroxime) 250 Mg Tablet Every 12 Hours Active [place] 11/13/2016 [facility] Dronedarone (Multaq 400MG Tablets*) 400 Mg Tab Twice Daily With Meals Active [place] 11/13/2016 [facility] Amitriptyline Hcl (Elavil) 25 Mg Tab, 1 Tab Oral Daily Active 05/31/2015 [facility] Aspirin (Asa) 81 Mg Tab, 1 Tab Oral Daily Active 05/31/2015 [facility] Benzonatate 100 Mg Capsule, 200 Mg Oral Three Times A Day Active 05/31/2015 [facility] Bifidobacterium Infantis (Align) 4 Mg Capsule, 2 Tab Oral Daily Active 05/31/2015 [facility] Celecoxib (Celebrex) 100 Mg Capsule, 2 Tab Oral Daily Active 05/31/2015 [facility] Cholestof , 1 Tab Oral Every 24 Hours as needed for Prn Active 05/31/2015 [facility] Dicyclomine Hcl 10 Mg Capsule, 1 Tab Oral Bedtime Active 05/31/2015 [facility] Duloxetine Hcl (Cymbalta) 30 Mg Capsule.dr, 1 Tab Oral Daily Active 05/31/2015 [facility] Famotidine (Pepcid) 40 Mg Tablet, 1 Tab Oral Daily Active 05/31/2015 [facility] Fe Fumarate/Fa/Vit Bcomp&C/Min (Hemocyte Plus Capsule) 1 Each Capsule, 2 Tab Oral Daily Active 05/31/2015 [facility] Fexofenadine Hcl (Edel) 180 Mg Tablet, 1 Tab Oral Daily Active 05/31/2015 [facility] Hydrocodone Bit/Acetaminophen (Anexsia 7.5-650 Tablet) 1 Each Tablet, 1 Tab Oral As Needed Active 05/31/2015 [facility] Insulin Aspart (Novolog) 100 Unit/1 Ml Cartridge, 6 Units Sub-Q Before Meals And At Bedtime Active 05/31/2015 [facility] Insulin Detemir (Levemir) 100 Unit/1 Ml Vial, 28 Units Sub-Q Before Breakfast Active 05/31/2015 [facility] Lactobac Cmb #3/Fos/Pantethine (Probiotic & Acidophilus Cap) 1 Each Capsule, 1 Cap Oral Every 24 Hours as needed for Constipation Active 05/31/2015 [facility] Lidocaine (Lidoderm Patch) 1 Ea Patch, 1 As Needed Active 05/31/2015 [facility] Losartan Potassium 25 Mg Tablet, 25 Mg Oral Twice A Day Active 05/31/2015 [facility] Metformin Hcl (Fortamet) 500 Mg Tab.osm.24, 2 Tab Oral Daily Active 05/31/2015 [facility] Montelukast Sodium (Singulair) 10 Mg Tablet, 1 Tab Oral Daily Active 05/31/2015 [facility] Westley-3 Fatty Acids/Fish Oil (Westley 3 1,000 Mg Softgel) 1 Each Capsule, 1 Tab Oral Daily At 1700 Active 05/31/2015 [facility] Pantoprazole Sodium (Protonix) 40 Mg Tablet.dr, 1 Tab Oral Daily Active 05/31/2015 [facility] Plant Stanol Brunilda (Cholest Off) 450 Mg Tablet, 1800 Mg Oral Twice A Day Active 05/31/2015 [facility] Salmeterol Xinaf/Fluticasone (Advair 500/50) 1 Ea Aerp, 2 Daily Active 05/31/2015 [facility] Salmeterol Xinafoate/Fluticasone (Advair 500/50*) 1 Ea Aerp, 1 Puff Inhalation As Needed Active 05/31/2015 [facility] Vitamin B Complex & Vit C No.3 (B Complex With Vitamin C) 1 Each Capsule, 1 Tab Oral Daily At 1700 Active 05/31/2015 [facility] Zolpidem Tartrate (Ambien Cr) 12.5 Mg Tab.mphase, 1 Tab Oral Daily Active 05/31/2015 [facility] [place] 10/325 oral tablet 1 tab, Route: PO, Drug Form: TAB, Dosing Weight 75, kg, ONCE, Start date: 09/12/12 23:01:00, Stop date: 09/12/12 23:01:00 PO No Longer Active [place] 09/13/2012 [facility] [place] 10/325 oral tablet 1 tab, PO, Q6H, PRN, 24 tab, for pain, Substitution Allowed, Maintenance PO Active [place] 09/13/2012 [facility] Dilaudid 1 mg, 0.5 mL, Route: SUB-Q, Drug form: INJ, ONCE, Dosing Weight 75, kg, Start date: 09/12/12 21:59:00, Stop date: 09/12/12 21:59:00 SUB-Q No Longer Active [place] 09/13/2012 [facility] Vitamin B12 500 microgram, PO, Daily, Substitution Allowed PO Active 09/13/2012 [facility] Zyrtec 10 mg oral tablet 10 mg, 1 tab, PO, Daily, PRN, 30 tab, as needed for allergy symptoms, Substitution Allowed, TAB PO Active 09/13/2012 [facility] Voltaren Topical 1% topical gel 1 appl, TOP, QID, PRN, 100 gm, pain, Substitution Allowed, GEL TOP Active 09/13/2012 [facility] Dilaudid 1 mg, Route: SUB-Q, ONCE, Dosing Weight 75, kg, Start date: 09/12/12 20:50:00, Stop date: 09/12/12 20:50:00 SUB-Q No Longer Active [place] 09/13/2012 [facility] fentanyl 50 mcg, TOP, Q-, Substitution Allowed, ERFILM TOP Active 09/13/2012 [facility] Lidoderm 5% topical film (patch) Substitution Allowed Active 09/13/2012 [facility] pantoprazole 40 mg oral enteric coated tablet 40 mg, 1 tab, PO, BID, 90 tab, Substitution Allowed, ECTAB PO Active 09/13/2012 [facility] glimepiride 1 mg oral tablet 1 mg, 1 tab, PO, Daily, 90 tab, Substitution Allowed, TAB PO Active 09/13/2012 [facility] Cymbalta 30 mg oral delayed release capsule 30 mg, 1 cap, PO, BID, 180 cap, Substitution Allowed, ECCAP PO Active 09/13/2012 [facility] montelukast 10 mg oral tablet 10 mg, 1 tab, PO, Bedtime, 90 tab, Substitution Allowed, TAB PO Active 09/13/2012 [facility] losartan 100 mg oral tablet 100 mg, 1 tab, PO, Daily, 90 tab, Substitution Allowed, TAB PO Active 09/13/2012 [facility] Ambien CR 6.25 mg oral tablet, extended release 6.25 mg, 1 tab, PO, Bedtime, PRN, for sleep, Substitution Allowed, ERTAB PO Active 09/13/2012 [facility] [place] 10/325 oral tablet 1 tab, PO, Q6H, PRN, 24 tab, for pain, Substitution Allowed, Maintenance PO Active 09/13/2012 [facility] Probiotic Formula oral capsule Substitution Allowed, Maintenance Active 09/13/2012 [facility] Celebrex 100 mg oral capsule 100 mg, 1 cap, PO, Daily, 180 cap, Substitution Allowed, CAP PO Active 09/13/2012 [facility] Aspirin (Aspir 81) 81 Mg Tablet. Daily Active [facility] Carvedilol 3.125 Mg Tablet Twice A Day Active [facility] Celecoxib (Celebrex*) 100 Mg Capsule Daily Active [facility] Cetirizine Hcl (Zyrtec) 10 Mg Capsule Daily Active THERAPEUTICALLY SUBSTITUTED WITH LORATIDINE 10MG [facility] Duloxetine Hcl (Cymbalta) 30 Mg Capsule. Twice A Day Active [facility] Famotidine 20 Mg Tab Daily Active [facility] Hydromorphone Hcl (Dilaudid) 2 Mg Tab Every 6 Hours as needed for Pain Active [facility] Hydroxyzine Hcl 25 Mg Tablet Every 6 Hours as needed for Itching Active [facility] Insulin Detemir (Levemir) 100 Unit/1 Ml Vial Daily Active [facility] Insulin Lispro (Humalog) 100 Unit/1 Ml Cartridge Three Times Daily With Meals Active [facility] Lactobac Cmb #3/Fos/Pantethine (Probiotic & Acidophilus Cap) 1 Each Capsule Daily Active [facility] Levalbuterol Tartrate (Xopenex Hfa) 15 Gm Hfa.aer.ad Every 4 Hours Active [facility] Lidodderm Patch Active [facility] Losartan Potassium 25 Mg Tablet Daily Active [facility] Mirtazapine 15 Mg Tab Daily Active [facility] Montelukast Sodium 10 Mg Tablet Daily Active [facility] Nitroglycerin 0.4 Mg Tab.subl Every 5 Minutes Active [facility] Westley-3 Fatty Acids (Westley-3) 1,000 Mg Capsule Daily Active [facility] Omeprazole 40 Mg Capsule. Daily Active [facility] Ondansetron (Zofran Odt) 4 Mg Tab.rapdis Every 8 Hours as needed for Nausea And Vomiting Active [facility] Ropinirole Hcl 1 Mg Tablet Bedtime Active [facility] Ubidecarenone (Co Q-10) 200 Mg Capsule Daily Active [facility] Vitamin B Complex (B Complex) 1 Each Tablet Daily Active [facility] Allergies, Adverse Reactions, Alerts Substance Category Reaction Severity Reaction type Status Date Reported Comments Source Nitroglycerin Rash Unknown Allergy to Substance Active 09/29/2017 [facility] Iodine Unknown Allergy to Substance Active 09/29/2017 [facility] Oxycodone Unknown Allergy to Substance Active 09/29/2017 [facility] Levofloxacin Unknown Allergy to Substance Active 09/29/2017 [facility] iodine topical drug allergy Allergy Active [facility] Levaquin drug allergy Allergy Active [facility] Nitro-Bid drug allergy Allergy Active [facility] Percodan drug allergy Allergy Active [facility] Immunizations No Data Provided for This Section Results Order Name Results Value Reference Range Date Interpretation Comments Source Activated partial thromboplastin time (aPTT) in platelet poor plasma bycoagulation assay Activated partial thromboplastin time (aPTT) in platelet poor plasma bycoagulation assay 27.9 23.8 - 35.5 09/29/2017 [facility] Automated blood basophil count (count/volume) Automated blood basophil count (count/volume) 0.1 0.0 - 0.1 09/29/2017 [facility] Automated blood basophil count as percentage of total leukocytes Automated blood basophil count as percentage of total leukocytes 0.5 0.0 - 1.0 09/29/2017 [facility] Automated blood eosinophil count Automated blood eosinophil count 0.4 0.0 - 0.4 09/29/2017 [facility] Automated blood eosinophil count as percentage of total leukocytes Automated blood eosinophil count as percentage of total leukocytes 2.3 0.0 - 6.0 09/29/2017 [facility] Automated blood hematocrit (volume fraction) Automated blood hematocrit (volume fraction) 44.2 34.2 - 44.1 09/29/2017 [facility] Automated blood lymphocyte count as percentage ot total leukocytes Automated blood lymphocyte count as percentage ot total leukocytes 32.8 18.0 - 39.1 09/29/2017 [facility] Automated blood monocyte count as percentage of total leukocytes Automated blood monocyte count as percentage of total leukocytes 6.7 4.4 - 11.3 09/29/2017 [facility] Automated blood neutrophil count Automated blood neutrophil count 9.7 2.1 - 6.9 09/29/2017 [facility] Automated blood platelet count (count/volume) Automated blood platelet count (count/volume) 398 140 - 360 09/29/2017 [facility] Automated blood segmented neutrophil count as percentage of total leukocytes Automated blood segmented neutrophil count as percentage of total leukocytes 57.3 38.7 - 80.0 09/29/2017 [facility] Automated erythrocyte mean corpuscular hemoglobin (mass per erythrocyte) Automated erythrocyte mean corpuscular hemoglobin (mass per erythrocyte) 29.4 28 - 32 09/29/2017 [facility] Automated erythrocyte mean corpuscular hemoglobin concentration measurement (mass/volume) Automated erythrocyte mean corpuscular hemoglobin concentration measurement (mass/volume) 32.6 31 - 35 09/29/2017 [facility] Automated erythrocyte mean corpuscular volume Automated erythrocyte mean corpuscular volume 90.4 81 - 99 09/29/2017 [facility] Blood erythrocytes automated count (number/volume) Blood erythrocytes automated count (number/volume) 4.89 3.6 - 5.1 09/29/2017 [facility] Blood hemoglobin measurement (moles/volume) Blood hemoglobin measurement (moles/volume) 14.4 12.0 - 16.0 09/29/2017 [facility] Blood leukocytes automated count (number/volume) Blood leukocytes automated count (number/volume) 16.91 4.8 - 10.8 09/29/2017 [facility] Blood lymphocytes count (number/volume) Blood lymphocytes count (number/volume) 5.5 1.0 - 3.2 09/29/2017 [facility] Blood lymphocytes variant count (number/volume) Blood lymphocytes variant count (number/volume) 4 09/29/2017 [facility] Blood monocytes automated count (number/volume) Blood monocytes automated count (number/volume) 1.1 0.2 - 0.8 09/29/2017 [facility] Blood platelets count by estimate (number/volume) Blood platelets count by estimate (number/volume) ADEQUATE 09/29/2017 [facility] Estimated glomerular filtration rate (GFR) determination Estimated glomerular filtration rate (GFR) determination >60 60 09/29/2017 [facility] Glucose measurement Glucose measurement 104 74 - 118 09/29/2017 [facility] INR in Platelet poor plasma by Coagulation assay INR in Platelet poor plasma by Coagulation assay 1.00 09/29/2017 [facility] Manual blood lymphocytes/100 leukocytes Manual blood lymphocytes/100 leukocytes 34 19 - 48 09/29/2017 [facility] Manual blood monocytes/100 leukocytes Manual blood monocytes/100 leukocytes 6 3.4 - 9.0 09/29/2017 [facility] Manual blood neutrophils/100 leukocytes Manual blood neutrophils/100 leukocytes 56 40 - 74 09/29/2017 [facility] Plasma globulin measurement (mass/volume) Plasma globulin measurement (mass/volume) 3.8 2.3 - 3.5 09/29/2017 [facility] Platelet morphology Platelet morphology FEW LARGE 09/29/2017 [facility] Prothrombin time (PT) in platelet poor plasma by coagulation assay Prothrombin time (PT) in platelet poor plasma by coagulation assay 12.4 11.9 - 14.5 09/29/2017 [facility] RBC morphology RBC morphology NORMAL 09/29/2017 [facility] Serum or plasma alanine aminotransferase measurement (enzymatic activity/volume) Serum or plasma alanine aminotransferase measurement (enzymatic activity/volume) 14 0 - 55 09/29/2017 [facility] Serum or plasma albumin measurement (mass/volume) Serum or plasma albumin measurement (mass/volume) 3.7 3.5 - 5.0 09/29/2017 [facility] Serum or plasma albumin/globulin mass ratio Serum or plasma albumin/globulin mass ratio 1.0 0.8 - 2.0 09/29/2017 [facility] Serum or plasma alkaline phosphatase measurement (enzymatic activity/volume) Serum or plasma alkaline phosphatase measurement (enzymatic activity/volume) 70 40 - 150 09/29/2017 [facility] Serum or plasma anion gap Serum or plasma anion gap 13.4 8 - 16 09/29/2017 [facility] Serum or plasma calcium measurement (mass/volume) Serum or plasma calcium measurement (mass/volume) 9.7 8.4 - 10.2 09/29/2017 [facility] Serum or plasma carbon dioxide, total measurement (moles/volume) Serum or plasma carbon dioxide, total measurement (moles/volume) 32 22 - 29 09/29/2017 [facility] Serum or plasma chloride measurement (moles/volume) Serum or plasma chloride measurement (moles/volume) 97 98 - 107 09/29/2017 [facility] Serum or plasma creatine kinase MB measurement (mass/volume) Serum or plasma creatine kinase MB measurement (mass/volume) 0.80 0 - 5.0 09/29/2017 [facility] Serum or plasma creatine kinase measurement (enzymatic activity/volume) Serum or plasma creatine kinase measurement (enzymatic activity/volume) 17 29 - 168 09/29/2017 [facility] Serum or plasma creatinine measurement (mass/volume) Serum or plasma creatinine measurement (mass/volume) 0.72 0.57 - 1.11 09/29/2017 [facility] Serum or plasma potassium measurement (moles/volume) Serum or plasma potassium measurement (moles/volume) 4.4 3.5 - 5.1 09/29/2017 [facility] Serum or plasma protein measurement (mass/volume) Serum or plasma protein measurement (mass/volume) 7.5 6.5 - 8.1 09/29/2017 [facility] Serum or plasma sodium measurement (moles/volume) Serum or plasma sodium measurement (moles/volume) 138 136 - 145 09/29/2017 [facility] Serum or plasma total bilirubin measurement (mass/volume) Serum or plasma total bilirubin measurement (mass/volume) 0.3 0.2 - 1.2 09/29/2017 [facility] Serum or plasma urea nitrogen measurement (mass/volume) Serum or plasma urea nitrogen measurement (mass/volume) 16 7 - 26 09/29/2017 [facility] Serum or plasma urea nitrogen/creatinine mass ratio Serum or plasma urea nitrogen/creatinine mass ratio 22 6 - 25 09/29/2017 [facility] Troponin I measurement by highly sensitive enzyme immunoassay Troponin I measurement by highly sensitive enzyme immunoassay <0.001 0 - 0.300 09/29/2017 [facility] Red Cell Distribution Width 13.6 11.7 - 14.4 09/29/2017 [facility] IM GRANULOCYTES % 0.4 0.0 - 1.0 09/29/2017 [facility] Absolute Immature Granulocyte (auto 0.07 0 - 0.1 09/29/2017 [facility] Differential Total Cells Counted 100 09/29/2017 [facility] Aspartate Amino Transf (AST/SGOT) 21 5 - 34 09/29/2017 [facility] Automated urine sediment leukocyte count by microscopy (number/high power field) Automated urine sediment leukocyte count by microscopy (number/high power field) <20 0 - 5 09/29/2017 [facility] Bacteria detection in urine sediment by light microscopy Bacteria detection in urine sediment by light microscopy FEW NONE 09/29/2017 [facility] Epithelial cells detection in urine sediment by light microscopy Epithelial cells detection in urine sediment by light microscopy MODERATE NONE 09/29/2017 [facility] Erythrocytes detection in urine sediment by light microscopy Erythrocytes detection in urine sediment by light microscopy NONE 0 - 5 09/29/2017 [facility] Specific gravity of Urine by Test strip Specific gravity of Urine by Test strip 1.010 1.010 - 1.025 09/29/2017 [facility] Transitional cells detection in urine sediment by light microscopy Transitional cells detection in urine sediment by light microscopy FEW NONE 09/29/2017 [facility] Urine clarity Urine clarity SL CLOUDY CLEAR 09/29/2017 [facility] Urine color determination Urine color determination YELLOW YELLOW 09/29/2017 [facility] Urine erythrocytes detection Urine erythrocytes detection NEGATIVE NEGATIVE 09/29/2017 [facility] Urine glucose detection Urine glucose detection NEGATIVE NEGATIVE 09/29/2017 [facility] Urine ketones detection by automated test strip Urine ketones detection by automated test strip NEGATIVE NEGATIVE 09/29/2017 [facility] Urine leukocyte esterase detection by dipstick Urine leukocyte esterase detection by dipstick 1+ NEGATIVE 09/29/2017 [facility] Urine nitrite detection Urine nitrite detection NEGATIVE NEGATIVE 09/29/2017 [facility] Urine pH measurement by automated test strip Urine pH measurement by automated test strip 6 5 - 7 09/29/2017 [facility] Urine protein measurement by test strip (mass/volume) Urine protein measurement by test strip (mass/volume) NEGATIVE NEGATIVE 09/29/2017 [facility] Urine total bilirubin measurement (mass/volume) Urine total bilirubin measurement (mass/volume) NEGATIVE NEGATIVE 09/29/2017 [facility] Urine urobilinogen measurement by test strip (mass/volume) Urine urobilinogen measurement by test strip (mass/volume) 0.2 0.2 - 1 09/29/2017 [facility] Pathology Reports No Data Provided for This Section Diagnostic Reports Report Value Date Source Spine lumbar wo contrast CT EXAM: CT [...] artifact at levels of the fusion. 09/12/2012 [facility] Consultation Notes No Data Provided for This Section Discharge Summaries No Data Provided for This Section History and Physicals No Data Provided for This Section Vital Signs Vital Sign Value Date Comments Source Weight 75 09/13/2012 [facility] Height 157.48 cm 09/13/2012 [facility] Encounters Location Location Details Encounter Type Encounter Number Reason For Visit Attending Provider ADM Date DC Date Status Source [facility] Emergency [id number] KATINA PAREDES 09/12/2012 09/12/2012 Discharged [facility] Outpatient [id number] 724.6, ANKYLOSIS OF LUMBOSACRAL JOINT DANGELO CLIF 09/15/2012 Active [facility] [id number] INESSA ONEAL MD 01/22/2017 [facility] [id number] INESSA ONEAL MD 06/04/2017 [facility] [id number] INESSA ONEAL MD 09/10/2017 [facility] Departed Emergency Room [id number] TIERRA LEE MD 09/29/2017 09/29/2017 [facility] Procedures Procedure Code Date Perfomer Comments Source Computed tomography of brain without radiopaque contrast [id number] 09/29/2017 [facility] Computed tomography of cervical spine without contrast [id number] 09/29/2017 [facility] X-ray of chest, two views [id number] 09/10/2017 [facility] Computed tomography of chest without contrast [id number] 06/04/2017 [facility] X-ray of chest, two views [id number] 01/22/2017 [facility] Lumbar spinal fusion [id number] [facility] Assessment and Plan No Data Provided for This Section Plan of Care Plan of Care Date Source Discharge Date 09/29/17 11:10pm Disposition HOME, SELF-CARE Condition at Discharge Stable Instructions/Education Provided Headache Urinary Tract Infection - Women Forms Provided Work/School Excuse Prescriptions See Medication Section Referrals FARHAD DELATORRE MD Address: [address] [place], [place] [id number] TR ESCUDERO MD Address: [address] [address] Additional Instructions/Education 1. follow up with your doctor in 1-2 days without fail 2. return to ed as needed 3. increase oral fluids 4. tylenol and motrin as needed 09/29/2017 [facility] Social History Social History Date Source Social History Problem Response Recorded Date/Time Onset Date Status Hx Psychiatric Problems No 11/07/2016 12:00am Not Applicable Not Applicable Hx Eating Disorder No 11/07/2016 12:00am Not Applicable Not Applicable Hx Substance Use Disorder No 11/07/2016 12:00am Not Applicable Not Applicable Hx Depression No 11/07/2016 12:00am Not Applicable Not Applicable Hx Alcohol Use No 11/07/2016 12:00am Not Applicable Not Applicable Hx Substance Use Treatment No 11/07/2016 12:00am Not Applicable Not Applicable Hx Physical Abuse No 11/07/2016 12:00am Not Applicable Not Applicable Smoking Status Start Date Stop Date Never Smoker 09/29/2017 [facility] Family History Value Date Source Relationship Condition Age at Onset Recorded Date/Time 09 Brother Family history of bowel disorder 30's - 40 04/24/2015 4:06am 09 Brother Family history of cardiac disorder 30's - 40 04/24/2015 4:07am 09 Brother Family history of hypertension 30's - 40 04/24/2015 4:09am 33 Father Family history of diabetes mellitus 30's - 40 04/24/2015 4:08am 33 Father Family history of hypertension 30's - 40 04/24/2015 4:09am 32 Mother Family history of diabetes mellitus 30's - 40 04/24/2015 4:08am 32 Mother Family history of hypertension 30's - 40 04/24/2015 4:09am 09 Sister Family history of bowel disorder 30's - 40 04/24/2015 4:06am 09 Sister Family history of diabetes mellitus 40's - 50 04/24/2015 4:08am 09 Sister Family history of hypertension 30's - 40 04/24/2015 4:09am 09/29/2017 [facility] Advance Directives Order Name Results Value Date Source Advance Directives Advance Directives Directive Response Recorded Date/Time Does the patient have an advance directive? No 11/07/16 12:00am If yes, is advance directive on file with [facility]? No 11/07/16 12:00am If not on file with [facility] will patient provide a copy? No 11/26/16 3:52pm Do you have a Directive to Physician? No 09/29/17 6:22pm Do you have a Medical Power of Mechanical System Technician? No 09/29/17 6:22pm Do you have an out of hospital Do Not Resuscitate Order? No 09/29/17 6:22pm Do you have any special needs we should be aware of? No 09/29/17 6:22pm Do you have a support person here with you today? No 09/29/17 6:22pm Did patient receive Notice of Privacy Practices? Yes 09/29/17 6:22pm Did patient receive patient rights and responsibilities? Yes 09/29/17 6:22pm 09/29/2017 [facility] Functional Status No Data Provided for This Section
[2018-10-15] MEDS ORDERED: SODIUM CHLORIDE 0.9% 1000ML 1,000 ML IV STA (12:47)
[2018-10-15] MEDS ORDERED: MORPHINE SULFATE 2 MG/ML SYR 1ML IV STA (12:47)
[2018-10-15] MEDS ORDERED: ONDANSETRON HCL INJ 2MG/ML 2ML 2 MG/ML VIAL IV STA (12:47)
[2018-10-15] MEDS ORDERED: MORPHINE SULFATE INJ 4 MG/ML INJ 1ML IV ONE (13:00)
[2018-10-15 13:39] LABS: BASOPHILS # (AUTO) 0.1 (0.0-0.1); BASOPHILS % 0.4 % (0.0-1.0); EOSINOPHILS # (AUTO) 0.1 (0.0-0.4); EOSINOPHILS % 0.5 % (0.0-6.0); HEMATOCRIT 45.4 % (34.2-44.1); HEMOGLOBIN 15.4 g/dL (12.0-16.0); LYMPHOCYTES # (AUTO) 6.4 (1.0-3.2); LYMPHOCYTES % 26.9 % (18.0-39.1); MEAN CORPUSCULAR HEMOGLOBIN 29.3 pg (28-32); MEAN CORPUSCULAR HGB CONC 33.9 g/dL (31-35); MEAN CORPUSCULAR VOLUME 86.3 fL (81-99); MONOCYTES # (AUTO) 1.7 (0.2-0.8); NEUTROPHILS # (AUTO) 15.3 (2.1-6.9); NEUTROPHILS % 64.7 % (38.7-80.0); PLATELET COUNT 426 x10e3/uL (140-360); RED BLOOD COUNT 5.26 x10e6/uL (3.6-5.1); RED CELL DISTRIBUTION WIDTH 13.8 % (11.7-14.4)
[2018-10-15 13:56] LABS: ANION GAP 16.7 mmol/L (8-16); BLOOD UREA NITROGEN 12 mg/dL (7-26); BUN/CREATININE RATIO 17 (6-25); CALCIUM 10.3 mg/dL (8.4-10.2); CARBON DIOXIDE 26 mmol/L (22-29); CHLORIDE 104 mmol/L (98-107); CREATININE, SERUM 0.72 mg/dL (0.57-1.11); EST GLOMERULAR FILTRATION RATE > 60 ML/MIN (60-); GLUCOSE 163 mg/dL (74-118); POTASSIUM 3.7 mmol/L (3.5-5.1); SODIUM 143 mmol/L (136-145)
--- NOTE | 2018-10-15 14:43 | Diagnostic Imaging Report ---
EXAM: CT Abdomen and Pelvis WITHOUT intravenous contrast INDICATION: Left abdominal pain COMPARISON: None. TECHNIQUE: Abdomen and pelvis were scanned utilizing a multidetector helical scanner from the lung base to the pubic symphysis without administration of IV contrast. Coronal and sagittal reformations were obtained. Routine protocol was performed. Scan was performed when during portal venous phase. IV CONTRAST: None ORAL CONTRAST: Water COMPLICATIONS: None RADIATION DOSE: Total DLP: 590.74 mGy*cm Dose modulation, iterative reconstruction, and/or weight based adjustment of the mA/kV was utilized to reduce the radiation dose to as low as reasonably achievable. FINDINGS: LOWER THORAX: Bilateral lower lobe dependent subsegmental atelectasis. 4 mm right middle lobe calcified granuloma. Lingular 12 mm thin-walled cyst. No focal consolidation. HEPATOBILIARY: Hypoattenuation of liver parenchyma, consistent with diffuse hepatic steatosis. There is an area of focal fat in the left liver adjacent to the falciform ligament. No focal liver lesion. No biliary ductal dilatation. Status post cholecystectomy. SPLEEN: No splenomegaly. PANCREAS: No focal masses or ductal dilatation. ADRENALS: No adrenal nodules. KIDNEYS/URETERS: No hydronephrosis, stones, or solid mass lesions. PELVIC ORGANS/BLADDER: Status post hysterectomy. Bladder is decompressed. PERITONEUM / RETROPERITONEUM: No free air or fluid. LYMPH NODES: No lymphadenopathy. VESSELS: Atherosclerotic calcifications involve the abdominal aorta and major branches. Implanted spinal stimulator device in the right anterior abdominal subcutaneous soft tissues with lead entering the spinal canal at the level of L1. Screw fixation hardware at L5-S2. Degenerative changes involve the visualized lumbar spine GI TRACT: No distention or wall thickening. Appendix is not well visualized however there are no secondary findings to suggest appendicitis. BONES AND SOFT TISSUES: Status post prior mesh repair of anterior abdominal hernia. Superior to the mesh, there is a recurrent/residual anterior abdominal hernia containing fat. IMPRESSION: No acute findings in the abdomen or pelvis. Prior anterior abdominal wall hernia repair with recurrent/residual fat containing hernia superior to the mesh. Hepatic steatosis. Signed by: Luz Peterson MD on 10/15/2018 2:39 PM
[2018-10-15 15:54] LABS: BILIRUBIN,URINE NEGATIVE (NEGATIVE); CLARITY,URINE CLEAR (CLEAR); COLOR,URINE YELLOW (YELLOW); KETONES,URINE 1+ (NEGATIVE); LEUKOCYTE ESTERASE ,URINE MODERATE (NEGATIVE); NITRITE,URINE NEGATIVE (NEGATIVE); PROTEIN,URINE DIPSTICK NEGATIVE (NEGATIVE); URINE UROBILINOGEN 0.2 mg/dL (0.2 - 1)
[2018-10-15 16:10] LABS: BACTERIA,URINE MODERATE /HPF; EPITHELIAL CELLS,URINE FEW /LPF
[2018-10-15] MEDS: CEFTRIAXONE SOD 1 GM/NS 50 ML 50 ML IV SCH (17:20)
[2018-10-15] MEDS ORDERED: HYDROMORPHONE 1MG/1ML INJ IV PRN (18:15)
[2018-10-15] MEDS ORDERED: CEFTRIAXONE SOD 1 GM/NS 50 ML 50 ML IV SCH (18:15)
--- OUTSIDE RECORDS SUMMARY | 2018-10-15 18:18 | XMS REPORT | Continuity of Care Document ---
Author Author Event[employer] Address Unknown Phone Unavailable Care Team Providers Care Corporate Associate Attorney Name Role Phone Xendo Information VR1 Unavailable Unavailable Problems Problem Status Onset Date Classification Date Reported Comments Source Pneumonia Active 04/23/2015 Problem 09/30/2017 [facility] BACK PAIN Active 09/12/[address] [facility] 724.6, ANKYLOSIS OF LUMBOSACRAL JOINT Active 09/03/2012 [facility] Asthma Resolved Problem 09/17/[address] [facility] Chronic pain1 Resolved Problem 09/17/[address] [facility] Diabetes mellitus Resolved Problem 09/17/[address] [facility] GERD - Gastro-esophageal reflux disease Resolved Problem 09/17/[address] [facility] HTN - Hypertension Resolved Problem 09/17/[address] [facility] Anemia Active Problem 09/30/2017 [facility] Leukocytosis Active Problem 09/30/2017 [facility] SPINAL STENOSIS NOS Active [facility] Medications Medication Details Route Status Patient Instructions Ordering Provider Order Date Source Cefuroxime Axetil (Cefuroxime) 250 Mg Tablet Every 12 Hours Active Browns 11/13/2016 [facility] Dronedarone (Multaq 400MG Tablets*) 400 Mg Tab Twice Daily With Meals Active Browns 11/13/2016 [facility] Amitriptyline Hcl (Elavil) 25 Mg Tab, 1 Tab Oral Daily Active 05/31/2015 [facility] Aspirin (Asa) 81 Mg Tab, 1 Tab Oral Daily Active 05/31/2015 [facility] Benzonatate 100 Mg Capsule, 200 Mg Oral Three Times A Day Active 05/31/2015 [facility] Bifidobacterium Infantis (Align) 4 Mg Capsule, 2 Tab Oral Daily Active 05/31/2015 [facility] Celecoxib (Celebrex) 100 Mg Capsule, 2 Tab Oral Daily Active 05/31/2015 [facility] Cholestof , 1 Tab Oral Every 24 Hours as needed for Prn Active 05/31/2015 [facility] Dicyclomine Hcl 10 Mg Capsule, 1 Tab Oral Bedtime Active 05/31/2015 [facility] Duloxetine Hcl (Cymbalta) 30 Mg Capsule.dr, 1 Tab Oral Daily Active 05/31/2015 [facility] Famotidine (Pepcid) 40 Mg Tablet, 1 Tab Oral Daily Active 05/31/2015 [facility] Fe Fumarate/Fa/Vit Bcomp&C/Min (Hemocyte Plus Capsule) 1 Each Capsule, 2 Tab Oral Daily Active 05/31/2015 [facility] Fexofenadine Hcl (Edel) 180 Mg Tablet, 1 Tab Oral Daily Active 05/31/2015 [facility] Hydrocodone Bit/Acetaminophen (Anexsia 7.5-650 Tablet) 1 Each Tablet, 1 Tab Oral As Needed Active 05/31/2015 [facility] Insulin Aspart (Novolog) 100 Unit/1 Ml Cartridge, 6 Units Sub-Q Before Meals And At Bedtime Active 05/31/2015 [facility] Insulin Detemir (Levemir) 100 Unit/1 Ml Vial, 28 Units Sub-Q Before Breakfast Active 05/31/2015 [facility] Lactobac Cmb #3/Fos/Pantethine (Probiotic & Acidophilus Cap) 1 Each Capsule, 1 Cap Oral Every 24 Hours as needed for Constipation Active 05/31/2015 [facility] Lidocaine (Lidoderm Patch) 1 Ea Patch, 1 As Needed Active 05/31/2015 [facility] Losartan Potassium 25 Mg Tablet, 25 Mg Oral Twice A Day Active 05/31/2015 [facility] Metformin Hcl (Fortamet) 500 Mg Tab.osm.24, 2 Tab Oral Daily Active 05/31/2015 [facility] Montelukast Sodium (Singulair) 10 Mg Tablet, 1 Tab Oral Daily Active 05/31/2015 [facility] White Cloud-3 Fatty Acids/Fish Oil (White Cloud 3 1,000 Mg Softgel) 1 Each Capsule, 1 Tab Oral Daily At 1700 Active 05/31/2015 [facility] Pantoprazole Sodium (Protonix) 40 Mg Tablet.dr, 1 Tab Oral Daily Active 05/31/2015 [facility] Plant Stanol Brunilda (Cholest Off) 450 Mg Tablet, 1800 Mg Oral Twice A Day Active 05/31/2015 [facility] Salmeterol Xinaf/Fluticasone (Advair 500/50) 1 Ea Aerp, 2 Daily Active 05/31/2015 [facility] Salmeterol Xinafoate/Fluticasone (Advair 500/50*) 1 Ea Aerp, 1 Puff Inhalation As Needed Active 05/31/2015 [facility] Vitamin B Complex & Vit C No.3 (B Complex With Vitamin C) 1 Each Capsule, 1 Tab Oral Daily At 1700 Active 05/31/2015 [facility] Zolpidem Tartrate (Ambien Cr) 12.5 Mg Tab.mphase, 1 Tab Oral Daily Active 05/31/2015 [facility] 10/325 oral tablet 1 tab, Route: PO, Drug Form: TAB, Dosing Weight 75, kg, ONCE, Start date: 09/12/12 23:01:00, Stop date: 09/12/12 23:01:00 PO No Longer Active [place]nis 09/13/[address] [facility] 10/325 oral tablet 1 tab, PO, Q6H, PRN, 24 tab, for pain, Substitution Allowed, Maintenance PO Active Ennis 09/13/[address] [facility] Dilaudid 1 mg, 0.5 mL, Route: SUB-Q, Drug form: INJ, ONCE, Dosing Weight 75, kg, Start date: 09/12/12 21:59:00, Stop date: 09/12/12 21:59:00 SUB-Q No Longer Active Ennis 09/13/[address] [facility] Vitamin B12 500 microgram, PO, Daily, Substitution Allowed PO Active 09/13/[address] [facility] Zyrtec 10 mg oral tablet 10 mg, 1 tab, PO, Daily, PRN, 30 tab, as needed for allergy symptoms, Substitution Allowed, TAB PO Active 09/13/[address] [facility] Voltaren Topical 1% topical gel 1 appl, TOP, QID, PRN, 100 gm, pain, Substitution Allowed, GEL TOP Active 09/13/[address] [facility] Dilaudid 1 mg, Route: SUB-Q, ONCE, Dosing Weight 75, kg, Start date: 09/12/12 20:50:00, Stop date: 09/12/12 20:50:00 SUB-Q No Longer Active Ennis 09/13/[address] [facility] fentanyl 50 mcg, TOP, Q-, Substitution Allowed, ERFILM TOP Active 09/13/[address] [facility] Lidoderm 5% topical film (patch) Substitution Allowed Active 09/13/[address] [facility] pantoprazole 40 mg oral enteric coated tablet 40 mg, 1 tab, PO, BID, 90 tab, Substitution Allowed, ECTAB PO Active 09/13/[address] [facility] glimepiride 1 mg oral tablet 1 mg, 1 tab, PO, Daily, 90 tab, Substitution Allowed, TAB PO Active 09/13/[address] [facility] Cymbalta 30 mg oral delayed release capsule 30 mg, 1 cap, PO, BID, 180 cap, Substitution Allowed, ECCAP PO Active 09/13/[address] [facility] montelukast 10 mg oral tablet 10 mg, 1 tab, PO, Bedtime, 90 tab, Substitution Allowed, TAB PO Active 09/13/[address] [facility] losartan 100 mg oral tablet 100 mg, 1 tab, PO, Daily, 90 tab, Substitution Allowed, TAB PO Active 09/13/[address] [facility] Ambien CR 6.25 mg oral tablet, extended release 6.25 mg, 1 tab, PO, Bedtime, PRN, for sleep, Substitution Allowed, ERTAB PO Active 09/13/[address] [facility] 10/325 oral tablet 1 tab, PO, Q6H, PRN, 24 tab, for pain, Substitution Allowed, Maintenance PO Active 09/13/[address] [facility] Probiotic Formula oral capsule Substitution Allowed, Maintenance Active 09/13/[address] [facility] Celebrex 100 mg oral capsule 100 mg, 1 cap, PO, Daily, 180 cap, Substitution Allowed, CAP PO Active 09/13/[address] [facility] Aspirin (Aspir 81) 81 Mg Tablet. Daily Active [facility] Carvedilol 3.125 Mg Tablet Twice A Day Active [facility] Celecoxib (Celebrex*) 100 Mg Capsule Daily Active [facility] Cetirizine Hcl (Zyrtec) 10 Mg Capsule Daily Active THERAPEUTICALLY SUBSTITUTED WITH LORATIDINE 10MG [facility] Duloxetine Hcl (Cymbalta) 30 Mg Capsule. Twice A Day Active [facility] Famotidine 20 Mg Tab Daily Active [facility] Hydromorphone Hcl (Dilaudid) 2 Mg Tab Every 6 Hours as needed for Pain Active [facility] Hydroxyzine Hcl 25 Mg Tablet Every 6 Hours as needed for Itching Active [facility] Insulin Detemir (Levemir) 100 Unit/1 Ml Vial Daily Active [facility] Insulin Lispro (Humalog) 100 Unit/1 Ml Cartridge Three Times Daily With Meals Active [facility] Lactobac Cmb #3/Fos/Pantethine (Probiotic & Acidophilus Cap) 1 Each Capsule Daily Active [facility] Levalbuterol Tartrate (Xopenex Hfa) 15 Gm Hfa.aer.ad Every 4 Hours Active [facility] Lidodderm Patch Active [facility] Losartan Potassium 25 Mg Tablet Daily Active [facility] Mirtazapine 15 Mg Tab Daily Active [facility] Montelukast Sodium 10 Mg Tablet Daily Active [facility] Nitroglycerin 0.4 Mg Tab.subl Every 5 Minutes Active [facility] White Cloud-3 Fatty Acids (White Cloud-3) 1,000 Mg Capsule Daily Active [facility] Omeprazole 40 Mg Capsule. Daily Active [facility] Ondansetron (Zofran Odt) 4 Mg Tab.rapdis Every 8 Hours as needed for Nausea And Vomiting Active [facility] Ropinirole Hcl 1 Mg Tablet Bedtime Active [facility] Ubidecarenone (Co Q-10) 200 Mg Capsule Daily Active [facility] Vitamin B Complex (B Complex) 1 Each Tablet Daily Active [facility] Allergies, Adverse Reactions, Alerts Substance Category Reaction Severity Reaction type Status Date Reported Comments Source Nitroglycerin Rash Unknown Allergy to Substance Active 09/29/2017 [facility] Iodine Unknown Allergy to Substance Active 09/29/2017 [facility] Oxycodone Unknown Allergy to Substance Active 09/29/2017 [facility] Levofloxacin Unknown Allergy to Substance Active 09/29/2017 [facility] iodine topical drug allergy Allergy Active [facility] Levaquin drug allergy Allergy Active [facility] Nitro-Bid drug allergy Allergy Active [facility] Percodan drug allergy Allergy Active [facility] Immunizations No Data Provided for This Section Results Order Name Results Value Reference Range Date Interpretation Comments Source Activated partial thromboplastin time (aPTT) in platelet poor plasma bycoagulation assay Activated partial thromboplastin time (aPTT) in platelet poor plasma bycoagulation assay 27.9 23.8 - 35.5 09/29/2017 [facility] Automated blood basophil count (count/volume) Automated blood basophil count (count/volume) 0.1 0.0 - 0.1 09/29/2017 [facility] Automated blood basophil count as percentage of total leukocytes Automated blood basophil count as percentage of total leukocytes 0.5 0.0 - 1.0 09/29/2017 [facility] Automated blood eosinophil count Automated blood eosinophil count 0.4 0.0 - 0.4 09/29/2017 [facility] Automated blood eosinophil count as percentage of total leukocytes Automated blood eosinophil count as percentage of total leukocytes 2.3 0.0 - 6.0 09/29/2017 [facility] Automated blood hematocrit (volume fraction) Automated blood hematocrit (volume fraction) 44.2 34.2 - 44.1 09/29/2017 [facility] Automated blood lymphocyte count as percentage ot total leukocytes Automated blood lymphocyte count as percentage ot total leukocytes 32.8 18.0 - 39.1 09/29/2017 [facility] Automated blood monocyte count as percentage of total leukocytes Automated blood monocyte count as percentage of total leukocytes 6.7 4.4 - 11.3 09/29/2017 [facility] Automated blood neutrophil count Automated blood neutrophil count 9.7 2.1 - 6.9 09/29/2017 [facility] Automated blood platelet count (count/volume) Automated blood platelet count (count/volume) 398 140 - 360 09/29/2017 [facility] Automated blood segmented neutrophil count as percentage of total leukocytes Automated blood segmented neutrophil count as percentage of total leukocytes 57.3 38.7 - 80.0 09/29/2017 [facility] Automated erythrocyte mean corpuscular hemoglobin (mass per erythrocyte) Automated erythrocyte mean corpuscular hemoglobin (mass per erythrocyte) 29.4 28 - 32 09/29/2017 [facility] Automated erythrocyte mean corpuscular hemoglobin concentration measurement (mass/volume) Automated erythrocyte mean corpuscular hemoglobin concentration measurement (mass/volume) 32.6 31 - 35 09/29/2017 [facility] Automated erythrocyte mean corpuscular volume Automated erythrocyte mean corpuscular volume 90.4 81 - 99 09/29/2017 [facility] Blood erythrocytes automated count (number/volume) Blood erythrocytes automated count (number/volume) 4.89 3.6 - 5.1 09/29/2017 [facility] Blood hemoglobin measurement (moles/volume) Blood hemoglobin measurement (moles/volume) 14.4 12.0 - 16.0 09/29/2017 [facility] Blood leukocytes automated count (number/volume) Blood leukocytes automated count (number/volume) 16.91 4.8 - 10.8 09/29/2017 [facility] Blood lymphocytes count (number/volume) Blood lymphocytes count (number/volume) 5.5 1.0 - 3.2 09/29/2017 [facility] Blood lymphocytes variant count (number/volume) Blood lymphocytes variant count (number/volume) 4 09/29/2017 [facility] Blood monocytes automated count (number/volume) Blood monocytes automated count (number/volume) 1.1 0.2 - 0.8 09/29/2017 [facility] Blood platelets count by estimate (number/volume) Blood platelets count by estimate (number/volume) ADEQUATE 09/29/2017 [facility] Estimated glomerular filtration rate (GFR) determination Estimated glomerular filtration rate (GFR) determination >60 60 09/29/2017 [facility] Glucose measurement Glucose measurement 104 74 - 118 09/29/2017 [facility] INR in Platelet poor plasma by Coagulation assay INR in Platelet poor plasma by Coagulation assay 1.00 09/29/2017 [facility] Manual blood lymphocytes/100 leukocytes Manual blood lymphocytes/100 leukocytes 34 19 - 48 09/29/2017 [facility] Manual blood monocytes/100 leukocytes Manual blood monocytes/100 leukocytes 6 3.4 - 9.0 09/29/2017 [facility] Manual blood neutrophils/100 leukocytes Manual blood neutrophils/100 leukocytes 56 40 - 74 09/29/2017 [facility] Plasma globulin measurement (mass/volume) Plasma globulin measurement (mass/volume) 3.8 2.3 - 3.5 09/29/2017 [facility] Platelet morphology Platelet morphology FEW LARGE 09/29/2017 [facility] Prothrombin time (PT) in platelet poor plasma by coagulation assay Prothrombin time (PT) in platelet poor plasma by coagulation assay 12.4 11.9 - 14.5 09/29/2017 [facility] RBC morphology RBC morphology NORMAL 09/29/2017 [facility] Serum or plasma alanine aminotransferase measurement (enzymatic activity/volume) Serum or plasma alanine aminotransferase measurement (enzymatic activity/volume) 14 0 - 55 09/29/2017 [facility] Serum or plasma albumin measurement (mass/volume) Serum or plasma albumin measurement (mass/volume) 3.7 3.5 - 5.0 09/29/2017 [facility] Serum or plasma albumin/globulin mass ratio Serum or plasma albumin/globulin mass ratio 1.0 0.8 - 2.0 09/29/2017 [facility] Serum or plasma alkaline phosphatase measurement (enzymatic activity/volume) Serum or plasma alkaline phosphatase measurement (enzymatic activity/volume) 70 40 - 150 09/29/2017 [facility] Serum or plasma anion gap Serum or plasma anion gap 13.4 8 - 16 09/29/2017 [facility] Serum or plasma calcium measurement (mass/volume) Serum or plasma calcium measurement (mass/volume) 9.7 8.4 - 10.2 09/29/2017 [facility] Serum or plasma carbon dioxide, total measurement (moles/volume) Serum or plasma carbon dioxide, total measurement (moles/volume) 32 22 - 29 09/29/2017 [facility] Serum or plasma chloride measurement (moles/volume) Serum or plasma chloride measurement (moles/volume) 97 98 - 107 09/29/2017 [facility] Serum or plasma creatine kinase MB measurement (mass/volume) Serum or plasma creatine kinase MB measurement (mass/volume) 0.80 0 - 5.0 09/29/2017 [facility] Serum or plasma creatine kinase measurement (enzymatic activity/volume) Serum or plasma creatine kinase measurement (enzymatic activity/volume) 17 29 - 168 09/29/2017 [facility] Serum or plasma creatinine measurement (mass/volume) Serum or plasma creatinine measurement (mass/volume) 0.72 0.57 - 1.11 09/29/2017 [facility] Serum or plasma potassium measurement (moles/volume) Serum or plasma potassium measurement (moles/volume) 4.4 3.5 - 5.1 09/29/2017 [facility] Serum or plasma protein measurement (mass/volume) Serum or plasma protein measurement (mass/volume) 7.5 6.5 - 8.1 09/29/2017 [facility] Serum or plasma sodium measurement (moles/volume) Serum or plasma sodium measurement (moles/volume) 138 136 - 145 09/29/2017 [facility] Serum or plasma total bilirubin measurement (mass/volume) Serum or plasma total bilirubin measurement (mass/volume) 0.3 0.2 - 1.2 09/29/2017 [facility] Serum or plasma urea nitrogen measurement (mass/volume) Serum or plasma urea nitrogen measurement (mass/volume) 16 7 - 26 09/29/2017 [facility] Serum or plasma urea nitrogen/creatinine mass ratio Serum or plasma urea nitrogen/creatinine mass ratio 22 6 - 25 09/29/2017 [facility] Troponin I measurement by highly sensitive enzyme immunoassay Troponin I measurement by highly sensitive enzyme immunoassay <0.001 0 - 0.300 09/29/2017 [facility] Red Cell Distribution Width 13.6 11.7 - 14.4 09/29/2017 [facility] IM GRANULOCYTES % 0.4 0.0 - 1.0 09/29/2017 [facility] Absolute Immature Granulocyte (auto 0.07 0 - 0.1 09/29/2017 [facility] Differential Total Cells Counted 100 09/29/2017 [facility] Aspartate Amino Transf (AST/SGOT) 21 5 - 34 09/29/2017 [facility] Automated urine sediment leukocyte count by microscopy (number/high power field) Automated urine sediment leukocyte count by microscopy (number/high power field) <20 0 - 5 09/29/2017 [facility] Bacteria detection in urine sediment by light microscopy Bacteria detection in urine sediment by light microscopy FEW NONE 09/29/2017 [facility] Epithelial cells detection in urine sediment by light microscopy Epithelial cells detection in urine sediment by light microscopy MODERATE NONE 09/29/2017 [facility] Erythrocytes detection in urine sediment by light microscopy Erythrocytes detection in urine sediment by light microscopy NONE 0 - 5 09/29/2017 [facility] Specific gravity of Urine by Test strip Specific gravity of Urine by Test strip 1.010 1.010 - 1.025 09/29/2017 [facility] Transitional cells detection in urine sediment by light microscopy Transitional cells detection in urine sediment by light microscopy FEW NONE 09/29/2017 [facility] Urine clarity Urine clarity SL CLOUDY CLEAR 09/29/2017 [facility] Urine color determination Urine color determination YELLOW YELLOW 09/29/2017 [facility] Urine erythrocytes detection Urine erythrocytes detection NEGATIVE NEGATIVE 09/29/2017 [facility] Urine glucose detection Urine glucose detection NEGATIVE NEGATIVE 09/29/2017 [facility] Urine ketones detection by automated test strip Urine ketones detection by automated test strip NEGATIVE NEGATIVE 09/29/2017 [facility] Urine leukocyte esterase detection by dipstick Urine leukocyte esterase detection by dipstick 1+ NEGATIVE 09/29/2017 [facility] Urine nitrite detection Urine nitrite detection NEGATIVE NEGATIVE 09/29/2017 [facility] Urine pH measurement by automated test strip Urine pH measurement by automated test strip 6 5 - 7 09/29/2017 [facility] Urine protein measurement by test strip (mass/volume) Urine protein measurement by test strip (mass/volume) NEGATIVE NEGATIVE 09/29/2017 [facility] Urine total bilirubin measurement (mass/volume) Urine total bilirubin measurement (mass/volume) NEGATIVE NEGATIVE 09/29/2017 [facility] Urine urobilinogen measurement by test strip (mass/volume) Urine urobilinogen measurement by test strip (mass/volume) 0.2 0.2 - 1 09/29/2017 [facility] Pathology Reports No Data Provided for This [...] artifact at levels of the fusion. 09/12/[address] [facility] Consultation Notes No Data Provided for This Section Discharge Summaries No Data Provided for This Section History and Physicals No Data Provided for This Section Vital Signs Vital Sign Value Date Comments Source Weight 75 09/13/[address] [facility] Height 157.48 cm 09/13/[address] [facility] Encounters Location Location Details Encounter Type Encounter Number Reason For Visit Attending Provider ADM Date DC Date Status Source [facility] Emergency [id number] KATINA PAREDES 09/12/2012 09/12/2012 Discharged [facility] Outpatient [id number] 724.6, ANKYLOSIS OF LUMBOSACRAL JOINT DANGELO CLIF 09/15/2012 Active [facility] [id number] INESSA ONEAL MD 01/22/2017 [facility]istered [facility] [id number] INESSA ONEAL MD 06/04/2017 [facility] [id number] INESSA ONEAL MD 09/10/2017 [facility] Departed Emergency Room [id number] TIERRA LEE MD 09/29/2017 09/29/2017 [facility] Procedures Procedure Code Date Perfomer Comments Source Computed tomography of brain without radiopaque contrast [id number] 09/29/2017 [facility] Computed tomography of cervical spine without contrast [id number] 09/29/2017 [facility] X-ray of chest, two views [id number] 09/10/2017 [facility] Computed tomography of chest without contrast [id number] 06/04/2017 [facility] X-ray of chest, two views [id number] 01/22/2017 KIMMY [facility] Lumbar spinal fusion [id number] [facility] Assessment and Plan No Data Provided for This Section Plan of Care Plan of Care Date Source Discharge Date 09/29/17 11:10pm Disposition HOME, SELF-CARE Condition at Discharge Stable Instructions/Education Provided Headache Urinary Tract Infection - Women Forms Provided Work/School Excuse Prescriptions See Medication Section Referrals FARHAD DELATORRE MD Address: [address] [place], [place] [address] TR ESCUDERO MD Address: [address] [address] Additional Instructions/Education 1. follow up with your doctor in 1-2 days without fail 2. return to ed as needed 3. increase oral fluids 4. tylenol and motrin as needed 09/29/2017 [facility] Social History Social History Date Source Social [...] Start Date Stop Date Never Smoker 09/29/2017 [facility] Family History Value Date Source Relationship Condition [...] hypertension 30's - 40 04/24/2015 4:09am 09/29/2017 [facility] Advance Directives Order Name Results Value Date Source Advance Directives Advance Directives Directive Response Recorded Date/Time Does the patient have an advance directive? No 11/07/16 12:00am If yes, is advance directive on file with [facility]? No 11/07/16 12:00am If not on file with [facility] will patient provide a copy? No 11/26/16 3:52pm Do you have a Directive to Physician? No 09/29/17 6:22pm Do you have a Medical Power of Aircraft Maintenance Engineer? No 09/29/17 6:22pm Do you have an [...] rights and responsibilities? Yes 09/29/17 6:22pm 09/29/2017 [facility] Functional Status No Data Provided for This Section
[2018-10-15] MEDS: SODIUM CHLORIDE 0.9% 1000ML 1,000 ML IV SCH (18:55)
[2018-10-15] MEDS ORDERED: DEXTROSE 50% SYRINGE 50 ML IV PRN (19:15)
--- NOTE | 2018-10-15 20:50 | NUR ---
Patient received from ER via stretcher accompanied by family members. AAO x 3. Admission history and Initial physical assessment performed. Patient had no complaints of pain. Respirations even and non-labored on 2L NC. IVF infusing at 125 cc/hr. Patient oriented to room , call light and plan of care. Fall precautions implemented. Patient instructed to call for assistance when needed. Call light within reach.
[2018-10-15 21:00] VITALS: BP 157/69
[2018-10-15] MEDS ORDERED: INSULIN LISPRO 100 UNIT/1 ML 3ML VIAL SQ SCH (21:00)
[2018-10-15 22:00] VITALS: BP 157/69
[2018-10-15 22:09] VITALS: BP 157/67
--- NOTE | 2018-10-15 23:15 | NUR ---
Patient complained of headache and having insomnia for [address] Daron Joaquin notified. Order received to continue some of her home medications ---Aspirin, Celecoxib, Hydrocodone, Ropinirole and Mirtazapine.
[2018-10-15] MEDS: HYDROMORPHONE 2MG/ML 2 MG/ML ML IV PRN (23:54)
[2018-10-15] MEDS: ONDANSETRON HCL INJ 2MG/ML 2ML 2 MG/ML VIAL IV PRN (23:54)
[2018-10-16] VITALS (7 sets, daily range): BP systolic 168–184; BP diastolic 67–77
[2018-10-16] MEDS: ASPIRIN 81 MG CHEW TAB PO SCH ×2 (01:28→10:00)
[2018-10-16] MEDS: HYDROCODONE/APAP 7.5MG-325MG 1 EA TAB PO SCH ×2 (02:39→17:35)
[2018-10-16] MEDS: SODIUM CHLORIDE 0.9% 1000ML 1,000 ML IV SCH ×3 (03:03→15:59)
[2018-10-16 05:22] LABS: BASOPHILS # (AUTO) 0.1 (0.0-0.1); BASOPHILS % 0.3 % (0.0-1.0); EOSINOPHILS # (AUTO) 0.3 (0.0-0.4); EOSINOPHILS % 1.3 % (0.0-6.0); HEMATOCRIT 40.1 % (34.2-44.1); HEMOGLOBIN 13.3 g/dL (12.0-16.0); LYMPHOCYTES # (AUTO) 6.7 (1.0-3.2); LYMPHOCYTES % 33.2 % (18.0-39.1); MEAN CORPUSCULAR HEMOGLOBIN 28.9 pg (28-32); MEAN CORPUSCULAR HGB CONC 33.2 g/dL (31-35); MEAN CORPUSCULAR VOLUME 87.2 fL (81-99); MONOCYTES # (AUTO) 1.5 (0.2-0.8); MONOCYTES % 7.2 % (4.4-11.3); NEUTROPHILS # (AUTO) 11.6 (2.1-6.9); NEUTROPHILS % 57.6 % (38.7-80.0); PLATELET COUNT 323 x10e3/uL (140-360)
[2018-10-16 05:39] LABS: ANION GAP 11.7 mmol/L (8-16); BLOOD UREA NITROGEN 12 mg/dL (7-26); BUN/CREATININE RATIO 18 (6-25); CALCIUM 9.1 mg/dL (8.4-10.2); CARBON DIOXIDE 25 mmol/L (22-29); CHLORIDE 110 mmol/L (98-107); CREATININE, SERUM 0.66 mg/dL (0.57-1.11); EST GLOMERULAR FILTRATION RATE > 60 ML/MIN (60-); GLUCOSE 206 mg/dL (74-118); POTASSIUM 3.7 mmol/L (3.5-5.1); SODIUM 143 mmol/L (136-145)
[2018-10-16] MEDS: HYDROMORPHONE 2MG/ML 2 MG/ML ML IV PRN ×3 (06:19→21:29)
[2018-10-16] MEDS: ONDANSETRON HCL INJ 2MG/ML 2ML 2 MG/ML VIAL IV PRN ×3 (06:20→21:29)
--- NOTE | 2018-10-16 07:07 | NUR ---
Walking rounds done. Shift report given to oncoming nurse regarding patient's status.
[2018-10-16 07:35] LABS: EOSINOPHILS % (MANUAL) 1 % (0-7); LYMPHOCYTES % (MANUAL) 38 % (19-48); MONOCYTES % (MANUAL) 4 % (3.4-9.0); NEUTROPHILS % (MANUAL) 57 % (40-74); PLATELET ESTIMATE ADEQUATE; PLATELET MORPHOLOGY COMMENT NORMAL; RBC MORPHOLOGY COMMENT NORMAL
[2018-10-16] MEDS ORDERED: MIRTAZAPINE 15 MG TAB PO SCH (09:00)
[2018-10-16] MEDS: DULOXETINE HCL 30 MG DELAYED RELEASE PO SCH ×2 (10:00→17:15)
[2018-10-16] MEDS: CELECOXIB 100 MG CAP PO SCH (10:00)
[2018-10-16] MEDS: INSULIN GLARGINE 100 UNITS/ML VIAL SC SCH (10:00)
[2018-10-16] MEDS: CARVEDILOL 3.125 MG TAB PO SCH ×2 (11:53→17:36)
[2018-10-16] MEDS: DICYCLOMINE HCL 10 MG CAP PO SCH ×2 (11:53→17:15)
[2018-10-16] MEDS: INSULIN LISPRO 100 UNIT/1 ML 3ML VIAL SQ SCH ×2 (11:53→17:40)
--- NOTE | 2018-10-16 15:47 | NUR ---
Paged Dr. Joaquin regarding patient's elevated blood pressure. Waiting button inspector back
[2018-10-16] MEDS ORDERED: ACETAMINOPHEN 325 MG TAB PO PRN (16:00)
[2018-10-16] MEDS: LOSARTAN POTASSIUM 25 MG TAB PO SCH (16:25)
[2018-10-16] MEDS ORDERED: CARVEDILOL 3.125 MG TAB PO SCH (17:00)
[2018-10-16] MEDS: CEFTRIAXONE SOD 1 GM/NS 50 ML 50 ML IV SCH (17:35)
--- NOTE | 2018-10-16 18:45 | NUR ---
Received bedside report from day shift RN. The patient is laying on the bed, side rails up x2, call light within reach, bed height low and wheels lock. The patient is not in distress. is at bedside.
[2018-10-16] MEDS: MIRTAZAPINE 15 MG TAB PO SCH (21:02)
[2018-10-16] MEDS: MONTELUKAST SODIUM 10 MG TAB PO SCH (21:02)
[2018-10-16] MEDS: ROPINIROLE HCL 1 MG TAB PO SCH (21:02)
[2018-10-17] VITALS (8 sets, daily range): BP systolic 151–203; BP diastolic 68–84
[2018-10-17] MEDS: HYDROMORPHONE 2MG/ML 2 MG/ML ML IV PRN ×4 (01:50→20:29)
[2018-10-17] MEDS: ONDANSETRON HCL INJ 2MG/ML 2ML 2 MG/ML VIAL IV PRN ×5 (01:50→20:29)
[2018-10-17] MEDS: SODIUM CHLORIDE 0.9% 1000ML 1,000 ML IV SCH ×3 (02:33→19:57)
--- NOTE | 2018-10-17 04:40 | NUR ---
CAITIE tech reported BP at 203/84 and pulse at 71. RN called Dr. Joaquin receiving order for Clonidine 0.1 mg tablet once PO and stop NS IV. Continue to monitor BP
[2018-10-17] MEDS ORDERED: CLONIDINE HCL 0.1 MG TAB PO ONE ×2 (05:00→21:30)
[2018-10-17 05:24] LABS: BASOPHILS # (AUTO) 0.1 (0.0-0.1); BASOPHILS % 0.5 % (0.0-1.0); EOSINOPHILS # (AUTO) 0.9 (0.0-0.4); EOSINOPHILS % 4.9 % (0.0-6.0); HEMATOCRIT 42.4 % (34.2-44.1); HEMOGLOBIN 14.2 g/dL (12.0-16.0); LYMPHOCYTES # (AUTO) 6.7 (1.0-3.2); LYMPHOCYTES % 36.7 % (18.0-39.1); MEAN CORPUSCULAR HEMOGLOBIN 29.5 pg (28-32); MEAN CORPUSCULAR HGB CONC 33.5 g/dL (31-35); MONOCYTES # (AUTO) 1.3 (0.2-0.8); MONOCYTES % 7.3 % (4.4-11.3); NEUTROPHILS # (AUTO) 9.2 (2.1-6.9); NEUTROPHILS % 50.2 % (38.7-80.0); PLATELET COUNT 361 x10e3/uL (140-360); RED BLOOD COUNT 4.82 x10e6/uL (3.6-5.1); RED CELL DISTRIBUTION WIDTH 14.2 % (11.7-14.4)
[2018-10-17 05:41] LABS: ANION GAP 15.2 mmol/L (8-16); BLOOD UREA NITROGEN 9 mg/dL (7-26); BUN/CREATININE RATIO 15 (6-25); CALCIUM 9.3 mg/dL (8.4-10.2); CARBON DIOXIDE 24 mmol/L (22-29); CHLORIDE 110 mmol/L (98-107); CREATININE, SERUM 0.61 mg/dL (0.57-1.11); EST GLOMERULAR FILTRATION RATE > 60 ML/MIN (60-); GLUCOSE 130 mg/dL (74-118); POTASSIUM 4.2 mmol/L (3.5-5.1); SODIUM 145 mmol/L (136-145)
[2018-10-17] MEDS: TIOTROPIUM 18 MCG INH POWDER INH SCH (07:51)
[2018-10-17] MEDS ORDERED: LOSARTAN POTASSIUM 25 MG TAB PO SCH (09:00)
[2018-10-17 09:30] LABS: LYMPHOCYTES % (MANUAL) 35 % (19-48); NEUTROPHILS % (MANUAL) 53 % (40-74)
[2018-10-17 09:31] LABS: EOSINOPHILS % (MANUAL) 4 % (0-7); MONOCYTES % (MANUAL) 8 % (3.4-9.0); PLATELET ESTIMATE ADEQUATE; PLATELET MORPHOLOGY COMMENT NORMAL; RBC MORPHOLOGY COMMENT NORMAL
[2018-10-17] MEDS: DICYCLOMINE HCL 10 MG CAP PO SCH ×2 (09:45→17:38)
[2018-10-17] MEDS: ASPIRIN 81 MG CHEW TAB PO SCH (09:45)
[2018-10-17] MEDS: PANTOPRAZOLE SOD 40 MG TABEC PO SCH (09:45)
[2018-10-17] MEDS: CARVEDILOL 3.125 MG TAB PO SCH ×2 (09:45→17:38)
[2018-10-17] MEDS: CELECOXIB 100 MG CAP PO SCH (09:45)
[2018-10-17] MEDS: INSULIN GLARGINE 100 UNITS/ML VIAL SC SCH (09:46)
[2018-10-17] MEDS: LORATADINE 10 MG TAB PO SCH (09:46)
[2018-10-17] MEDS: LOSARTAN POTASSIUM 25 MG TAB PO SCH (09:46)
[2018-10-17] MEDS: DULOXETINE HCL 30 MG DELAYED RELEASE PO SCH ×2 (09:46→17:38)
[2018-10-17] MEDS: HYDROCODONE/APAP 7.5MG-325MG 1 EA TAB PO SCH (09:46)
[2018-10-17] MEDS: LACTOBACILLUS ACIDOPHILUS CAPSULE PO SCH (09:46)
[2018-10-17] MEDS: INSULIN LISPRO 100 UNIT/1 ML 3ML VIAL SQ SCH ×3 (09:47→16:30)
--- NOTE | 2018-10-17 14:06 | NUR ---
Dr. Joaquin was notified about elevated blood pressure. New orders received.
[2018-10-17] MEDS ORDERED: FUROSEMIDE INJ 10 MG/ML 2 ML VIAL IV ONE (14:30)
[2018-10-17] MEDS: CEFTRIAXONE SOD 1 GM/NS 50 ML 50 ML IV SCH (17:38)
[2018-10-17] MEDS: MIRTAZAPINE 15 MG TAB PO SCH (20:29)
[2018-10-17] MEDS: ROPINIROLE HCL 1 MG TAB PO SCH (20:29)
[2018-10-17] MEDS: MONTELUKAST SODIUM 10 MG TAB PO SCH (20:29)
--- NOTE | 2018-10-17 20:33 | NUR ---
Reported patient's BP at 175/75. MD stated he will prescribe a medication if the patient is symptomatic from the BP such as chest pain, nausea, vomiting, headache. Since the patient was asymptomatic, no medication was offered to lower the BP. RN reported to the patient and were concerned about the elevated blood pressure. Patient/ wanted the supervisor cellars RN or charge nurse to call the MD but explained to the patient that they would need to call the MD themselves to express their concern. RN will call MD for BP of 190/79. The patient would like Dr. Mckeon on the case to help manage the BP.
--- NOTE | 2018-10-17 21:10 | NUR ---
Dr. Joaquin returned the call regarding the elevated BP at 190/79 and ordered a Clonidine 0.1 mg PO once. stated there is no reason to call Dr. Dill, sales representative womens health, to be on the case stating he has know the patient for 20+ years. MD stated to allow the patient to take the medication and let her rest for the night. RN will continue to monitor the patient's BP through the shift.
[2018-10-18] VITALS (9 sets, daily range): BP systolic 144–190; BP diastolic 64–86
[2018-10-18] MEDS: ONDANSETRON HCL INJ 2MG/ML 2ML 2 MG/ML VIAL IV PRN ×4 (00:12→21:31)
[2018-10-18] MEDS: HYDROMORPHONE 2MG/ML 2 MG/ML ML IV PRN ×5 (00:12→21:31)
[2018-10-18] MEDS: NITROGLYCERIN 0.4 MG SUBL SL PRN (00:46)
--- NOTE | 2018-10-18 00:52 | NUR ---
Patient reported chest pain. Patient confirmed she is not allergic to taking Nitroglycerin but to Nitrobid. RN called pharmacy to verify Nitroglycerin. Patient's chest pain was relieved taking one tablet SL. Continue to monitor BP, chest pain.
[2018-10-18 05:19] LABS: BASOPHILS # (AUTO) 0.1 (0.0-0.1); BASOPHILS % 0.4 % (0.0-1.0); EOSINOPHILS # (AUTO) 0.9 (0.0-0.4); EOSINOPHILS % 4.9 % (0.0-6.0); HEMATOCRIT 41.4 % (34.2-44.1); HEMOGLOBIN 13.9 g/dL (12.0-16.0); LYMPHOCYTES % 33.4 % (18.0-39.1); MEAN CORPUSCULAR HEMOGLOBIN 29.4 pg (28-32); MEAN CORPUSCULAR HGB CONC 33.6 g/dL (31-35); MEAN CORPUSCULAR VOLUME 87.5 fL (81-99); MONOCYTES # (AUTO) 1.4 (0.2-0.8); MONOCYTES % 7.8 % (4.4-11.3); NEUTROPHILS # (AUTO) 9.5 (2.1-6.9); NEUTROPHILS % 53.2 % (38.7-80.0); PLATELET COUNT 375 x10e3/uL (140-360); RED BLOOD COUNT 4.73 x10e6/uL (3.6-5.1)
[2018-10-18] MEDS: TIOTROPIUM 18 MCG INH POWDER INH SCH (07:39)
[2018-10-18] MEDS: DICYCLOMINE HCL 10 MG CAP PO SCH ×2 (08:20→17:30)
[2018-10-18] MEDS: DULOXETINE HCL 30 MG DELAYED RELEASE PO SCH ×2 (08:20→17:30)
[2018-10-18] MEDS: CELECOXIB 100 MG CAP PO SCH (08:20)
[2018-10-18] MEDS: INSULIN LISPRO 100 UNIT/1 ML 3ML VIAL SQ SCH ×3 (08:20→17:30)
[2018-10-18] MEDS: ASPIRIN 81 MG CHEW TAB PO SCH (08:20)
[2018-10-18] MEDS: LACTOBACILLUS ACIDOPHILUS CAPSULE PO SCH (08:20)
[2018-10-18] MEDS: LOSARTAN POTASSIUM 25 MG TAB PO SCH ×2 (08:20→17:30)
[2018-10-18] MEDS: HYDROCODONE/APAP 7.5MG-325MG 1 EA TAB PO SCH (08:20)
[2018-10-18] MEDS: INSULIN GLARGINE 100 UNITS/ML VIAL SC SCH (08:20)
[2018-10-18] MEDS: CARVEDILOL 3.125 MG TAB PO SCH ×2 (08:20→17:30)
[2018-10-18] MEDS: LORATADINE 10 MG TAB PO SCH (08:20)
[2018-10-18] MEDS: PANTOPRAZOLE SOD 40 MG TABEC PO SCH (08:20)
[2018-10-18 09:35] LABS: BAND NEUTROPHILS % (MANUAL) 1 %; EOSINOPHILS % (MANUAL) 2 % (0-7); LYMPHOCYTES % (MANUAL) 22 % (19-48); MONOCYTES % (MANUAL) 6 % (3.4-9.0); NEUTROPHILS % (MANUAL) 61 % (40-74)
[2018-10-18 09:41] LABS: PLATELET ESTIMATE SLIGHTLY INCREASED; PLATELET MORPHOLOGY COMMENT NORMAL; RBC MORPHOLOGY COMMENT NORMAL
[2018-10-18] MEDS: SODIUM CHLORIDE 0.9% 1000ML 1,000 ML IV SCH ×2 (12:17→22:17)
--- NOTE | 2018-10-18 15:27 | NUR ---
IMM letter delivered and explained to pt and family at bedside. They verbalized understanding. Pt stated she didn't want to sign and asked her family member to. Signed form placed in chart. Copy to pt.
[2018-10-18] MEDS: HYDRALAZINE HCL 25 MG TAB PO SCH (17:30)
[2018-10-18] MEDS: CEFTRIAXONE SOD 1 GM/NS 50 ML 50 ML IV SCH (17:30)
[2018-10-18] MEDS: HYDROCODONE/APAP 7.5MG-325MG 1 EA TAB PO PRN (17:40)
[2018-10-18] MEDS ORDERED: CLONIDINE HCL 0.1 MG TAB PO PRN (21:15)
[2018-10-18] MEDS: MONTELUKAST SODIUM 10 MG TAB PO SCH (21:31)
[2018-10-18] MEDS: MIRTAZAPINE 15 MG TAB PO SCH (21:31)
[2018-10-18] MEDS: ROPINIROLE HCL 1 MG TAB PO SCH (21:31)
[2018-10-19] MEDS: HYDROMORPHONE 2MG/ML 2 MG/ML ML IV PRN ×6 (01:25→23:49)
[2018-10-19] MEDS: ONDANSETRON HCL INJ 2MG/ML 2ML 2 MG/ML VIAL IV PRN ×5 (01:25→19:50)
[2018-10-19] MEDS: HYDROCODONE/APAP 7.5MG-325MG 1 EA TAB PO PRN ×5 (04:30→21:32)
[2018-10-19 05:29] LABS: BASOPHILS # (AUTO) 0.1 (0.0-0.1); BASOPHILS % 0.5 % (0.0-1.0); EOSINOPHILS # (AUTO) 0.9 (0.0-0.4); EOSINOPHILS % 5.6 % (0.0-6.0); HEMOGLOBIN 13.4 g/dL (12.0-16.0); LYMPHOCYTES # (AUTO) 5.9 (1.0-3.2); LYMPHOCYTES % 36.6 % (18.0-39.1); MEAN CORPUSCULAR HEMOGLOBIN 29.1 pg (28-32); MEAN CORPUSCULAR HGB CONC 32.7 g/dL (31-35); MEAN CORPUSCULAR VOLUME 88.9 fL (81-99); MONOCYTES # (AUTO) 1.4 (0.2-0.8); MONOCYTES % 8.4 % (4.4-11.3); NEUTROPHILS # (AUTO) 7.8 (2.1-6.9); NEUTROPHILS % 48.5 % (38.7-80.0); PLATELET COUNT 383 x10e3/uL (140-360); RED BLOOD COUNT 4.61 x10e6/uL (3.6-5.1); RED CELL DISTRIBUTION WIDTH 14.3 % (11.7-14.4)
[2018-10-19 05:43] VITALS: BP 140/54
--- NOTE | 2018-10-19 07:00 | NUR ---
BEDSIDE SHIFT REPORT RECEIVED FROM THE CONTACT CENTER REP RN. PT FAMILY AT BEDSIDE. PT DENIES NEEDS AT THIS TIME.
[2018-10-19] MEDS: TIOTROPIUM 18 MCG INH POWDER INH SCH (07:10)
[2018-10-19] MEDS: INSULIN LISPRO 100 UNIT/1 ML 3ML VIAL SQ SCH ×3 (07:30→16:30)
[2018-10-19] MEDS: PANTOPRAZOLE SOD 40 MG TABEC PO SCH (08:00)
[2018-10-19] MEDS: HYDRALAZINE HCL 25 MG TAB PO SCH ×2 (08:27→17:08)
[2018-10-19] MEDS: CARVEDILOL 3.125 MG TAB PO SCH ×2 (08:27→17:09)
[2018-10-19] MEDS: DICYCLOMINE HCL 10 MG CAP PO SCH ×2 (08:28→17:08)
[2018-10-19] MEDS: ASPIRIN 81 MG CHEW TAB PO SCH (08:28)
[2018-10-19] MEDS: LORATADINE 10 MG TAB PO SCH (08:29)
[2018-10-19] MEDS: CELECOXIB 100 MG CAP PO SCH (08:29)
[2018-10-19] MEDS: DULOXETINE HCL 30 MG DELAYED RELEASE PO SCH ×2 (08:30→17:09)
[2018-10-19] MEDS: LOSARTAN POTASSIUM 25 MG TAB PO SCH ×2 (08:30→17:09)
[2018-10-19] MEDS: LACTOBACILLUS ACIDOPHILUS CAPSULE PO SCH (08:31)
[2018-10-19 08:48] VITALS: BP 144/66
[2018-10-19 09:00] VITALS: BP 144/66
[2018-10-19] MEDS: INSULIN GLARGINE 100 UNITS/ML VIAL SC SCH (09:00)
--- NOTE | 2018-10-19 11:41 | Consultation ---
DATE OF CONSULTATION: 10/18/2018 Cardiology Consultation Thank you so much for asking me to see this nice lady again in consultation. Ms Dawson is a very complex 73-year-old lady, known to me from previous evaluations, who was admitted with clinical pyelonephritis. CHIEF COMPLAINT: Consultation was asked for palpitations. PAST MEDICAL HISTORY: Significant for hospitalization at [facility] for an episode of necrotizing pneumonia including the development of takotsubo cardiomyopathy in 2016 and atrial fibrillation at that time. She has longstanding hypertension, COPD. PAST SURGICAL HISTORY: Includes cholecystectomy, bladder suspension, hysterectomy, appendectomy, back surgeries, pain pump implant and required tracheostomy in May 2015 for that pneumonia hospitalization. FAMILY HISTORY: Father with coronary artery disease. PERSONAL AND SOCIAL HISTORY: She does not smoke nor drink. ALLERGIES: SHE REPORTS BEING ALLERGIC TO LEVAQUIN, METFORMIN, NITRO-BID, PERCODAN, IODINE, AND ESTROGENS. PHYSICAL EXAMINATION: GENERAL: At this time shows a pleasant, obese woman about 5 feet 2 inches tall, weighing 179 pounds. VITAL SIGNS: Blood pressure 140/80. HEAD, EYES, EARS, NOSE, AND THROAT: Unremarkable. NECK: No jugular venous distention. THORAX: Heart sounds S1, S2 are equal, prematures, no significant murmur. Lungs are relatively clear. ABDOMEN: Protuberant. EXTREMITIES: No cyanosis, clubbing, or edema. LABORATORY DATA: EKG on the chart shows sinus rhythm with PACs and left bundle-branch block. ASSESSMENT: 1. Pyelonephritis. 2. History of atrial fibrillation. 3. History of takotsubo cardiomyopathy, resolved. Current telemetry just show sinus rhythm with PACs, no evidence of atrial fib recurrence. Agree with management. We will follow closely with you. Thank you for asking me to see her in consultation. MD CASIMIRO Gupta/GABRIEL /[id number]
[2018-10-19 12:38] VITALS: BP 160/70
--- NOTE | 2018-10-19 14:10 | NUR ---
PAGED DR. DELATORRE PER PT REQUEST. PT WOULD LIKE TO SEE A UROLOGIST.
--- NOTE | 2018-10-19 15:56 | NUR ---
DISCUSSED IN BARRIER ROUNDS, ON O2 AT HOME PRIOR TO VISIT, ON IV ABX, PT REFUSING PT, PLAN PER FAMILY IS TO RETURN HOME.
--- NOTE | 2018-10-19 16:44 | NUR ---
PAGED DR. CHRISTY PER PT REQUEST. PT LIKES TO DISCUSS REGARDING HER PAIN MEDICATIONS.
[2018-10-19] MEDS ORDERED: FENTANYL 25 MCG/HR PATCH TOP SCH (17:00)
[2018-10-19] MEDS: ENOXAPARIN SOD INJ 40 MG/0.4 ML SYR SC SCH (17:06)
[2018-10-19] MEDS: CEFTRIAXONE SOD 1 GM/NS 50 ML 50 ML IV SCH (17:15)
[2018-10-19 17:19] VITALS: BP 165/65
--- NOTE | 2018-10-19 19:00 | NUR ---
BEDSIDE SHIFT REPORT GIVEN TO THE WOOD BORER RN. PT DENIED FURTHER NEEDS
--- NOTE | 2018-10-19 19:15 | NUR ---
Report received from CAITIE Moore. Pt resting comfortably in bed. Pt states pain is 0/10 at this time. Call light is in reach and is at bedside.
[2018-10-19 20:41] VITALS: BP 103/44
[2018-10-19] MEDS: MIRTAZAPINE 15 MG TAB PO SCH (23:44)
[2018-10-19] MEDS: MONTELUKAST SODIUM 10 MG TAB PO SCH (23:44)
[2018-10-19] MEDS: ROPINIROLE HCL 1 MG TAB PO SCH (23:44)
[2018-10-20] VITALS (7 sets, daily range): BP systolic 113–144; BP diastolic 56–73
[2018-10-20] MEDS: HYDROCODONE/APAP 7.5MG-325MG 1 EA TAB PO PRN ×3 (01:56→12:06)
[2018-10-20] MEDS: HYDROMORPHONE 2MG/ML 2 MG/ML ML IV PRN ×5 (03:52→22:40)
[2018-10-20] MEDS: ONDANSETRON HCL INJ 2MG/ML 2ML 2 MG/ML VIAL IV PRN ×3 (04:10→22:40)
[2018-10-20 05:30] LABS: BASOPHILS # (AUTO) 0.1 (0.0-0.1); BASOPHILS % 0.6 % (0.0-1.0); EOSINOPHILS # (AUTO) 1.1 (0.0-0.4); EOSINOPHILS % 7.2 % (0.0-6.0); HEMATOCRIT 42.8 % (34.2-44.1); HEMOGLOBIN 14.1 g/dL (12.0-16.0); LYMPHOCYTES # (AUTO) 6.3 (1.0-3.2); LYMPHOCYTES % 41.7 % (18.0-39.1); MEAN CORPUSCULAR HEMOGLOBIN 29.4 pg (28-32); MEAN CORPUSCULAR HGB CONC 32.9 g/dL (31-35); MEAN CORPUSCULAR VOLUME 89.4 fL (81-99); MONOCYTES # (AUTO) 1.3 (0.2-0.8); MONOCYTES % 8.9 % (4.4-11.3); NEUTROPHILS # (AUTO) 6.2 (2.1-6.9); NEUTROPHILS % 41.2 % (38.7-80.0); PLATELET COUNT 402 x10e3/uL (140-360); RED BLOOD COUNT 4.79 x10e6/uL (3.6-5.1); RED CELL DISTRIBUTION WIDTH 14.1 % (11.7-14.4)
[2018-10-20 05:49] LABS: ANION GAP 12.1 mmol/L (8-16); BLOOD UREA NITROGEN 14 mg/dL (7-26); BUN/CREATININE RATIO 22 (6-25); CALCIUM 9.8 mg/dL (8.4-10.2); CARBON DIOXIDE 29 mmol/L (22-29); CHLORIDE 104 mmol/L (98-107); CREATININE, SERUM 0.63 mg/dL (0.57-1.11); EST GLOMERULAR FILTRATION RATE > 60 ML/MIN (60-); GLUCOSE 136 mg/dL (74-118); POTASSIUM 4.1 mmol/L (3.5-5.1); SODIUM 141 mmol/L (136-145)
--- NOTE | 2018-10-20 07:15 | NUR ---
REPORT GIVEN TO CAITIE VALLADARES AT THIS TIME.
[2018-10-20] MEDS: TIOTROPIUM 18 MCG INH POWDER INH SCH (07:20)
[2018-10-20] MEDS: INSULIN LISPRO 100 UNIT/1 ML 3ML VIAL SQ SCH ×3 (07:30→18:07)
[2018-10-20] MEDS: PANTOPRAZOLE SOD 40 MG TABEC PO SCH (07:30)
--- NOTE | 2018-10-20 08:21 | NUR ---
Received patient this morning, a/ox3, in bed and c/o pains, medicated with Dilaudid at this time, call light within reach, will monitor.
[2018-10-20] MEDS: CARVEDILOL 3.125 MG TAB PO SCH ×2 (08:23→17:16)
[2018-10-20] MEDS: INSULIN GLARGINE 100 UNITS/ML VIAL SC SCH (08:45)
[2018-10-20] MEDS: LORATADINE 10 MG TAB PO SCH (08:46)
[2018-10-20] MEDS: ASPIRIN 81 MG CHEW TAB PO SCH (08:46)
[2018-10-20] MEDS: CELECOXIB 100 MG CAP PO SCH (08:46)
[2018-10-20] MEDS: DICYCLOMINE HCL 10 MG CAP PO SCH ×2 (08:46→17:15)
[2018-10-20] MEDS: HYDRALAZINE HCL 25 MG TAB PO SCH ×2 (08:46→17:15)
[2018-10-20] MEDS: LOSARTAN POTASSIUM 25 MG TAB PO SCH ×2 (08:47→17:16)
[2018-10-20] MEDS: LACTOBACILLUS ACIDOPHILUS CAPSULE PO SCH (08:47)
[2018-10-20] MEDS: DULOXETINE HCL 30 MG DELAYED RELEASE PO SCH ×2 (08:47→17:16)
--- NOTE | 2018-10-20 09:04 | NUR ---
Rounds by Dr. Salmeron and orders in place to schedule [place] 10 Q 4 hours.
[2018-10-20] MEDS: HYDROCODONE/APAP 10MG-325MG TAB PO SCH ×4 (09:15→20:27)
--- NOTE | 2018-10-20 13:27 | NUR ---
Patient alert and responsive, completed peritoneal dialysis and 1300cc drained, BP at end 168/76, patient stable and will monitor.
--- NOTE | 2018-10-20 15:39 | NUR ---
IMM delivered and explained to pt and at bedside. Reminded them of Medicare Rights. Pt did not want to sign. Asked her to. Signed copy placed in chart. Copy to pt's .
[2018-10-20] MEDS: CEFTRIAXONE SOD 1 GM/NS 50 ML 50 ML IV SCH (17:16)
[2018-10-20] MEDS: ENOXAPARIN SOD INJ 40 MG/0.4 ML SYR SC SCH (17:16)
[2018-10-20] MEDS: ROPINIROLE HCL 1 MG TAB PO SCH (20:26)
[2018-10-20] MEDS: MIRTAZAPINE 15 MG TAB PO SCH (20:26)
[2018-10-20] MEDS: MONTELUKAST SODIUM 10 MG TAB PO SCH (20:27)
--- NOTE | 2018-10-20 23:29 | NUR ---
Patient c/o CP, stated is started at left shoulder blade and radiates to chest. Patient requested Nitroglycerin and 1 tablet was administered. VS were taken and WNL, tele reported SR w/ R BBB. Dr. Dill was informed and no new orders were received.
[2018-10-20] MEDS: NITROGLYCERIN 0.4 MG SUBL SL PRN (23:32)
[2018-10-21] VITALS: BP 144/61
[2018-10-21] MEDS: HYDROCODONE/APAP 10MG-325MG TAB PO SCH ×3 (01:07→09:30)
[2018-10-21 01:37] VITALS: BP 144/61
[2018-10-21 04:00] VITALS: BP 172/71
[2018-10-21] MEDS: TIOTROPIUM 18 MCG INH POWDER INH SCH (06:55)
[2018-10-21] MEDS: HYDROMORPHONE 2MG/ML 2 MG/ML ML IV PRN (07:38)
[2018-10-21] MEDS: INSULIN LISPRO 100 UNIT/1 ML 3ML VIAL SQ SCH (08:00)
[2018-10-21 08:29] VITALS: BP 155/69
--- NOTE | 2018-10-21 09:25 | NUR ---
CM SPOKE TO PATIENT AT BEDSIDE REGARDING DISCHARGE PLANS AND PLAN OF CARE. PATIENT AWARE SHE WILL NEED PT/ OT AT HOME TO RETURN TO [employer]. PATIENT EDUCATED ON HOME HEALTH SERVICES AND GIVEN CHOICES OF HOME HEALTH COMPANIES. PATIENT FIRST CHOICE FOR HOME HEALTH IS [facility]. PATIENT ACCEPTED AND AWARE SHE WILL BE RECEIVING CALL FROM [facility] TO SET UP A GOOD DAY AND TIME FOR INITIAL ASSESSMENT. CLINICAL SENT TO [facility] AND LIAISONGEORGE NOTIFIED. [facility] (P) [phone] (F)[phone]
--- NOTE | 2018-10-21 09:28 | NUR ---
DISCHARGE DISPOSITION PATIENT DISCHARGING HOME WITH HOME HEALTH SERVICES FOR PT/ OT, HOME SAFETY EVAL, [facility] EVAL: [facility] (P) [phone] (F)[phone] LIAISON: GEORGE PEÑA
[2018-10-21] MEDS: CARVEDILOL 3.125 MG TAB PO SCH (09:30)
[2018-10-21] MEDS: INSULIN GLARGINE 100 UNITS/ML VIAL SC SCH (09:30)
[2018-10-21] MEDS: DULOXETINE HCL 30 MG DELAYED RELEASE PO SCH (09:30)
[2018-10-21] MEDS: LOSARTAN POTASSIUM 25 MG TAB PO SCH (09:30)
[2018-10-21] MEDS: HYDRALAZINE HCL 25 MG TAB PO SCH (09:30)
[2018-10-21] MEDS: LORATADINE 10 MG TAB PO SCH (09:34)
[2018-10-21] MEDS: PANTOPRAZOLE SOD 40 MG TABEC PO SCH (09:34)
[2018-10-21] MEDS: ASPIRIN 81 MG CHEW TAB PO SCH (09:34)
[2018-10-21] MEDS: DICYCLOMINE HCL 10 MG CAP PO SCH (09:34)
[2018-10-21] MEDS: LACTOBACILLUS ACIDOPHILUS CAPSULE PO SCH (09:34)
[2018-10-21] MEDS: CELECOXIB 100 MG CAP PO SCH (09:34)
[2018-10-21] MEDS ORDERED: COZAAR25 MG PO (10:29)
[2018-10-21] MEDS ORDERED: HYDRALAZINE HCL25 MG PO (10:29)
[2018-10-21] MEDS ORDERED: CEFUROXIME250 MG PO (10:29)
[2018-10-21] MEDS ORDERED: MIRTAZAPINE15 MG PO (10:29)
--- NOTE | 2018-10-21 11:08 | NUR ---
Discharge instructions given to the patient and her , they verbalized understanding. Prescriptions were given. Followup instructions given, they verbalized understanding.
== END 2018-10-21 12:55 | disposition home health service (06) | DRG 690 ==
LOC: ER 12:20 → ERHOLD 18:06 → MED/SURG2 20:40
PROVIDERS: ADMIT Internal Medicine; ATTEND Internal Medicine
DX: N10 Acute pyelonephritis (principal); B96.20 Unspecified Escherichia coli [E. coli] as the cause of diseases classified elsewhere; I49.1 Atrial premature depolarization; I10 Essential (primary) hypertension; E86.0 Dehydration; J44.9 Chronic obstructive pulmonary disease, unspecified; E66.9 Obesity, unspecified; Z68.33 Body mass index [BMI] 33.0-33.9, adult; E11.9 Type 2 diabetes mellitus without complications; D72.823 Leukemoid reaction; F32.9 Major depressive disorder, single episode, unspecified; G89.29 Other chronic pain; K76.0 Fatty (change of) liver, not elsewhere classified; Z79.82 Long term (current) use of aspirin; Z79.4 Long term (current) use of insulin; Z88.5 Allergy status to narcotic agent; Z88.8 Allergy status to other drugs, medicaments and biological substances; Z88.1 Allergy status to other antibiotic agents; Z91.041 Radiographic dye allergy status
CPT/HCPCS: 36415; 74176; 80048; 81001; 82948; 85025; 87086; 87186; 93005; 94664; 99284; J0696; J1650; J1815; J1940; J2270; J2405; J7030

== ENCOUNTER 2018-10-22 18:09 | Emergency (ER) | payer MEDICARE ==
[~2018-10-22] VITALS: Ht 157.5 cm; Wt 83.9 kg
[~2018-10-22 18:09] MED LIST changes: +COZAAR25 MG PO; +HYDRALAZINE HCL25 MG PO
--- OUTSIDE RECORDS SUMMARY | 2018-10-22 18:15 | XMS REPORT | Continuity of Care Document ---
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 [employer] Information [employer] Unavailable Unavailable Problems Problem Status Onset Date Classification Date Reported Comments Source Pneumonia Active 04/23/2015 Problem 09/30/2017 [facility] BACK PAIN Active 09/12/2012 [facility] 724.6, ANKYLOSIS OF LUMBOSACRAL JOINT Active 09/03/2012 [facility] Asthma Resolved Problem 09/17/2012 [facility] Chronic pain1 Resolved Problem 09/17/2012 1Lumbar spine [facility] Diabetes mellitus Resolved Problem 09/17/2012 [facility] GERD - Gastro-esophageal reflux disease Resolved Problem 09/17/2012 [facility] HTN - Hypertension Resolved Problem 09/17/2012 [facility] Anemia Active Problem 09/30/2017 [facility] Leukocytosis Active Problem 09/30/2017 [facility] SPINAL STENOSIS NOS Active [facility] Medications Medication Details Route Status Patient Instructions Ordering Provider Order Date Source Cefuroxime Axetil (Cefuroxime) 250 Mg Tablet Every 12 Hours Active [facility] 11/13/2016 [facility] Dronedarone (Multaq 400MG Tablets*) 400 Mg Tab Twice Daily With Meals Active [facility] 11/13/2016 [facility] Amitriptyline Hcl (Elavil) 25 Mg Tab, 1 Tab Oral Daily Active 05/31/2015 [facility] Aspirin (Asa) 81 Mg Tab, 1 Tab Oral Daily Active 05/31/2015 [facility] Benzonatate 100 Mg Capsule, 200 Mg Oral Three Times A Day Active 05/31/2015 [facility] Bifidobacterium Infantis (Align) 4 Mg Capsule, 2 Tab Oral Daily Active 05/31/2015 [facility] Celecoxib (Celebrex) 100 Mg Capsule, 2 Tab Oral Daily Active 05/31/2015 [facility] Cholestof , 1 Tab Oral Every 24 Hours as needed for Prn Active 05/31/2015 [facility] Dicyclomine Hcl 10 Mg Capsule, 1 Tab Oral Bedtime Active 05/31/2015 [facility] Duloxetine Hcl (Cymbalta) 30 Mg Capsule.dr, 1 Tab Oral Daily Active 05/31/2015 [facility] Famotidine (Pepcid) 40 Mg Tablet, 1 Tab Oral Daily Active 05/31/2015 [facility] Fe Fumarate/Fa/Vit Bcomp&C/Min (Hemocyte Plus Capsule) 1 Each Capsule, 2 Tab Oral Daily Active 05/31/2015 [facility] Fexofenadine Hcl (Edel) 180 Mg Tablet, 1 Tab Oral Daily Active 05/31/2015 [facility] Hydrocodone Bit/Acetaminophen (Anexsia 7.5-650 Tablet) 1 Each Tablet, 1 Tab Oral As Needed Active 05/31/2015 [facility] Insulin Aspart (Novolog) 100 Unit/1 Ml Cartridge, 6 Units Sub-Q Before Meals And At Bedtime Active 05/31/2015 [facility] Insulin Detemir (Levemir) 100 Unit/1 Ml Vial, 28 Units Sub-Q Before Breakfast Active 05/31/2015 [facility] Lactobac Cmb #3/Fos/Pantethine (Probiotic & Acidophilus Cap) 1 Each Capsule, 1 Cap Oral Every 24 Hours as needed for Constipation Active 05/31/2015 [facility] Lidocaine (Lidoderm Patch) 1 Ea Patch, 1 As Needed Active 05/31/2015 [facility] Losartan Potassium 25 Mg Tablet, 25 Mg Oral Twice A Day Active 05/31/2015 [facility] Metformin Hcl (Fortamet) 500 Mg Tab.osm.24, 2 Tab Oral Daily Active 05/31/2015 [facility] Montelukast Sodium (Singulair) 10 Mg Tablet, 1 Tab Oral Daily Active 05/31/2015 [facility] [place]-3 Fatty Acids/Fish Oil ([place] 3 1,000 Mg Softgel) 1 Each Capsule, 1 Tab Oral Daily At 1700 Active 05/31/2015 [facility] Pantoprazole Sodium (Protonix) 40 Mg Tablet.dr, 1 Tab Oral Daily Active 05/31/2015 [facility] Plant Stanol Brunilda (Cholest Off) 450 Mg Tablet, 1800 Mg Oral Twice A Day Active 05/31/2015 [facility] Salmeterol Xinaf/Fluticasone (Advair 500/50) 1 Ea Aerp, 2 Daily Active 05/31/2015 [facility] Salmeterol Xinafoate/Fluticasone (Advair 500/50*) 1 Ea Aerp, 1 Puff Inhalation As Needed Active 05/31/2015 [facility] Vitamin B Complex & Vit C No.3 (B Complex With Vitamin C) 1 Each Capsule, 1 Tab Oral Daily At 1700 Active 05/31/2015 [facility] Zolpidem Tartrate (Ambien Cr) 12.5 Mg Tab.mphase, 1 Tab Oral Daily Active 05/31/2015 [facility] [place] 10/325 oral tablet 1 tab, Route: PO, Drug Form: TAB, Dosing Weight 75, kg, ONCE, Start date: 09/12/12 23:01:00, Stop date: 09/12/12 23:01:00 PO No Longer Active [place] 09/13/2012 [facility] [place] 10/325 oral tablet 1 tab, PO, Q6H, PRN, 24 tab, for pain, Substitution Allowed, Maintenance PO Active [place] 09/13/2012 [facility] Dilaudid 1 mg, 0.5 mL, Route: SUB-Q, Drug form: INJ, ONCE, Dosing Weight 75, kg, Start date: 09/12/12 21:59:00, Stop date: 09/12/12 21:59:00 SUB-Q No Longer Active [place] 09/13/2012 [facility] Vitamin B12 500 microgram, PO, Daily, Substitution Allowed PO Active 09/13/2012 [facility] Zyrtec 10 mg oral tablet 10 mg, 1 tab, PO, Daily, PRN, 30 tab, as needed for allergy symptoms, Substitution Allowed, TAB PO Active 09/13/2012 [facility] Voltaren Topical 1% topical gel 1 appl, TOP, QID, PRN, 100 gm, pain, Substitution Allowed, GEL TOP Active 09/13/2012 [facility] Dilaudid 1 mg, Route: SUB-Q, ONCE, Dosing Weight 75, kg, Start date: 09/12/12 20:50:00, Stop date: 09/12/12 20:50:00 SUB-Q No Longer Active [place] 09/13/2012 [facility] fentanyl 50 mcg, TOP, Q-, Substitution Allowed, ERFILM TOP Active 09/13/2012 [facility] Lidoderm 5% topical film (patch) Substitution Allowed Active 09/13/2012 [facility] pantoprazole 40 mg oral enteric coated tablet 40 mg, 1 tab, PO, BID, 90 tab, Substitution Allowed, ECTAB PO Active 09/13/2012 [facility] glimepiride 1 mg oral tablet 1 mg, 1 tab, PO, Daily, 90 tab, Substitution Allowed, TAB PO Active 09/13/2012 [facility] Cymbalta 30 mg oral delayed release capsule 30 mg, 1 cap, PO, BID, 180 cap, Substitution Allowed, ECCAP PO Active 09/13/2012 [facility] montelukast 10 mg oral tablet 10 mg, 1 tab, PO, Bedtime, 90 tab, Substitution Allowed, TAB PO Active 09/13/2012 [facility] losartan 100 mg oral tablet 100 mg, 1 tab, PO, Daily, 90 tab, Substitution Allowed, TAB PO Active 09/13/2012 [facility] Ambien CR 6.25 mg oral tablet, extended release 6.25 mg, 1 tab, PO, Bedtime, PRN, for sleep, Substitution Allowed, ERTAB PO Active 09/13/2012 [facility] [place] 10/325 oral tablet 1 tab, PO, Q6H, PRN, 24 tab, for pain, Substitution Allowed, Maintenance PO Active 09/13/2012 [facility] Probiotic Formula oral capsule Substitution Allowed, Maintenance Active 09/13/2012 [facility] Celebrex 100 mg oral capsule 100 mg, 1 cap, PO, Daily, 180 cap, Substitution Allowed, CAP PO Active 09/13/2012 [facility] Aspirin (Aspir 81) 81 Mg Tablet. Daily Active [facility] Carvedilol 3.125 Mg Tablet Twice A Day Active [facility] Celecoxib (Celebrex*) 100 Mg Capsule Daily Active [facility] Cetirizine Hcl (Zyrtec) 10 Mg Capsule Daily Active THERAPEUTICALLY SUBSTITUTED WITH LORATIDINE 10MG [facility] Duloxetine Hcl (Cymbalta) 30 Mg Capsule. Twice A Day Active [facility] Famotidine 20 Mg Tab Daily Active [facility] Hydromorphone Hcl (Dilaudid) 2 Mg Tab Every 6 Hours as needed for Pain Active [facility] Hydroxyzine Hcl 25 Mg Tablet Every 6 Hours as needed for Itching Active [facility] Insulin Detemir (Levemir) 100 Unit/1 Ml Vial Daily Active [facility] Insulin Lispro (Humalog) 100 Unit/1 Ml Cartridge Three Times Daily With Meals Active [facility] Lactobac Cmb #3/Fos/Pantethine (Probiotic & Acidophilus Cap) 1 Each Capsule Daily Active [facility] Levalbuterol Tartrate (Xopenex Hfa) 15 Gm Hfa.aer.ad Every 4 Hours Active [facility] Lidodderm Patch Active [facility] Losartan Potassium 25 Mg Tablet Daily Active [facility] Mirtazapine 15 Mg Tab Daily Active [facility] Montelukast Sodium 10 Mg Tablet Daily Active [facility] Nitroglycerin 0.4 Mg Tab.subl Every 5 Minutes Active [facility] [place]-3 Fatty Acids ([place]-3) 1,000 Mg Capsule Daily Active [facility] Omeprazole 40 Mg Capsule. Daily Active [facility] Ondansetron (Zofran Odt) 4 Mg Tab.rapdis Every 8 Hours as needed for Nausea And Vomiting Active [facility] Ropinirole Hcl 1 Mg Tablet Bedtime Active [facility] Ubidecarenone (Co Q-10) 200 Mg Capsule Daily Active [facility] Vitamin B Complex (B Complex) 1 Each Tablet Daily Active [facility] Allergies, Adverse Reactions, Alerts Substance Category Reaction Severity Reaction type Status Date Reported Comments Source Nitroglycerin Rash Unknown Allergy to Substance Active 09/29/2017 [facility] Iodine Unknown Allergy to Substance Active 09/29/2017 [facility] Oxycodone Unknown Allergy to Substance Active 09/29/2017 [facility] Levofloxacin Unknown Allergy to Substance Active 09/29/2017 [facility] iodine topical drug allergy Allergy Active [facility] Levaquin drug allergy Allergy Active [facility] Nitro-Bid drug allergy Allergy Active [facility] Percodan drug allergy Allergy Active [facility] Immunizations No Data Provided for This Section Results Order Name Results Value Reference Range Date Interpretation Comments Source Activated partial thromboplastin time (aPTT) in platelet poor plasma bycoagulation assay Activated partial thromboplastin time (aPTT) in platelet poor plasma bycoagulation assay 27.9 23.8 - 35.5 09/29/2017 [facility] Automated blood basophil count (count/volume) Automated blood basophil count (count/volume) 0.1 0.0 - 0.1 09/29/2017 [facility] Automated blood basophil count as percentage of total leukocytes Automated blood basophil count as percentage of total leukocytes 0.5 0.0 - 1.0 09/29/2017 [facility] Automated blood eosinophil count Automated blood eosinophil count 0.4 0.0 - 0.4 09/29/2017 [facility] Automated blood eosinophil count as percentage of total leukocytes Automated blood eosinophil count as percentage of total leukocytes 2.3 0.0 - 6.0 09/29/2017 [facility] Automated blood hematocrit (volume fraction) Automated blood hematocrit (volume fraction) 44.2 34.2 - 44.1 09/29/2017 [facility] Automated blood lymphocyte count as percentage ot total leukocytes Automated blood lymphocyte count as percentage ot total leukocytes 32.8 18.0 - 39.1 09/29/2017 [facility] Automated blood monocyte count as percentage of total leukocytes Automated blood monocyte count as percentage of total leukocytes 6.7 4.4 - 11.3 09/29/2017 [facility] Automated blood neutrophil count Automated blood neutrophil count 9.7 2.1 - 6.9 09/29/2017 [facility] Automated blood platelet count (count/volume) Automated blood platelet count (count/volume) 398 140 - 360 09/29/2017 [facility] Automated blood segmented neutrophil count as percentage of total leukocytes Automated blood segmented neutrophil count as percentage of total leukocytes 57.3 38.7 - 80.0 09/29/2017 [facility] Automated erythrocyte mean corpuscular hemoglobin (mass per erythrocyte) Automated erythrocyte mean corpuscular hemoglobin (mass per erythrocyte) 29.4 28 - 32 09/29/2017 [facility] Automated erythrocyte mean corpuscular hemoglobin concentration measurement (mass/volume) Automated erythrocyte mean corpuscular hemoglobin concentration measurement (mass/volume) 32.6 31 - 35 09/29/2017 [facility] Automated erythrocyte mean corpuscular volume Automated erythrocyte mean corpuscular volume 90.4 81 - 99 09/29/2017 [facility] Blood erythrocytes automated count (number/volume) Blood erythrocytes automated count (number/volume) 4.89 3.6 - 5.1 09/29/2017 [facility] Blood hemoglobin measurement (moles/volume) Blood hemoglobin measurement (moles/volume) 14.4 12.0 - 16.0 09/29/2017 [facility] Blood leukocytes automated count (number/volume) Blood leukocytes automated count (number/volume) 16.91 4.8 - 10.8 09/29/2017 [facility] Blood lymphocytes count (number/volume) Blood lymphocytes count (number/volume) 5.5 1.0 - 3.2 09/29/2017 [facility] Blood lymphocytes variant count (number/volume) Blood lymphocytes variant count (number/volume) 4 09/29/2017 [facility] Blood monocytes automated count (number/volume) Blood monocytes automated count (number/volume) 1.1 0.2 - 0.8 09/29/2017 [facility] Blood platelets count by estimate (number/volume) Blood platelets count by estimate (number/volume) ADEQUATE 09/29/2017 [facility] Estimated glomerular filtration rate (GFR) determination Estimated glomerular filtration rate (GFR) determination >60 60 09/29/2017 [facility] Glucose measurement Glucose measurement 104 74 - 118 09/29/2017 [facility] INR in Platelet poor plasma by Coagulation assay INR in Platelet poor plasma by Coagulation assay 1.00 09/29/2017 [facility] Manual blood lymphocytes/100 leukocytes Manual blood lymphocytes/100 leukocytes 34 19 - 48 09/29/2017 [facility] Manual blood monocytes/100 leukocytes Manual blood monocytes/100 leukocytes 6 3.4 - 9.0 09/29/2017 [facility] Manual blood neutrophils/100 leukocytes Manual blood neutrophils/100 leukocytes 56 40 - 74 09/29/2017 [facility] Plasma globulin measurement (mass/volume) Plasma globulin measurement (mass/volume) 3.8 2.3 - 3.5 09/29/2017 [facility] Platelet morphology Platelet morphology FEW LARGE 09/29/2017 [facility] Prothrombin time (PT) in platelet poor plasma by coagulation assay Prothrombin time (PT) in platelet poor plasma by coagulation assay 12.4 11.9 - 14.5 09/29/2017 [facility] RBC morphology RBC morphology NORMAL 09/29/2017 [facility] Serum or plasma alanine aminotransferase measurement (enzymatic activity/volume) Serum or plasma alanine aminotransferase measurement (enzymatic activity/volume) 14 0 - 55 09/29/2017 [facility] Serum or plasma albumin measurement (mass/volume) Serum or plasma albumin measurement (mass/volume) 3.7 3.5 - 5.0 09/29/2017 [facility] Serum or plasma albumin/globulin mass ratio Serum or plasma albumin/globulin mass ratio 1.0 0.8 - 2.0 09/29/2017 [facility] Serum or plasma alkaline phosphatase measurement (enzymatic activity/volume) Serum or plasma alkaline phosphatase measurement (enzymatic activity/volume) 70 40 - 150 09/29/2017 [facility] Serum or plasma anion gap Serum or plasma anion gap 13.4 8 - 16 09/29/2017 [facility] Serum or plasma calcium measurement (mass/volume) Serum or plasma calcium measurement (mass/volume) 9.7 8.4 - 10.2 09/29/2017 [facility] Serum or plasma carbon dioxide, total measurement (moles/volume) Serum or plasma carbon dioxide, total measurement (moles/volume) 32 22 - 29 09/29/2017 [facility] Serum or plasma chloride measurement (moles/volume) Serum or plasma chloride measurement (moles/volume) 97 98 - 107 09/29/2017 [facility] Serum or plasma creatine kinase MB measurement (mass/volume) Serum or plasma creatine kinase MB measurement (mass/volume) 0.80 0 - 5.0 09/29/2017 [facility] Serum or plasma creatine kinase measurement (enzymatic activity/volume) Serum or plasma creatine kinase measurement (enzymatic activity/volume) 17 29 - 168 09/29/2017 [facility] Serum or plasma creatinine measurement (mass/volume) Serum or plasma creatinine measurement (mass/volume) 0.72 0.57 - 1.11 09/29/2017 [facility] Serum or plasma potassium measurement (moles/volume) Serum or plasma potassium measurement (moles/volume) 4.4 3.5 - 5.1 09/29/2017 [facility] Serum or plasma protein measurement (mass/volume) Serum or plasma protein measurement (mass/volume) 7.5 6.5 - 8.1 09/29/2017 [facility] Serum or plasma sodium measurement (moles/volume) Serum or plasma sodium measurement (moles/volume) 138 136 - 145 09/29/2017 [facility] Serum or plasma total bilirubin measurement (mass/volume) Serum or plasma total bilirubin measurement (mass/volume) 0.3 0.2 - 1.2 09/29/2017 [facility] Serum or plasma urea nitrogen measurement (mass/volume) Serum or plasma urea nitrogen measurement (mass/volume) 16 7 - 26 09/29/2017 [facility] Serum or plasma urea nitrogen/creatinine mass ratio Serum or plasma urea nitrogen/creatinine mass ratio 22 6 - 25 09/29/2017 [facility] Troponin I measurement by highly sensitive enzyme immunoassay Troponin I measurement by highly sensitive enzyme immunoassay <0.001 0 - 0.300 09/29/2017 [facility] Red Cell Distribution Width 13.6 11.7 - 14.4 09/29/2017 [facility] IM GRANULOCYTES % 0.4 0.0 - 1.0 09/29/2017 [facility] Absolute Immature Granulocyte (auto 0.07 0 - 0.1 09/29/2017 [facility] Differential Total Cells Counted 100 09/29/2017 [facility] Aspartate Amino Transf (AST/SGOT) 21 5 - 34 09/29/2017 [facility] Automated urine sediment leukocyte count by microscopy (number/high power field) Automated urine sediment leukocyte count by microscopy (number/high power field) <20 0 - 5 09/29/2017 [facility] Bacteria detection in urine sediment by light microscopy Bacteria detection in urine sediment by light microscopy FEW NONE 09/29/2017 [facility] Epithelial cells detection in urine sediment by light microscopy Epithelial cells detection in urine sediment by light microscopy MODERATE NONE 09/29/2017 [facility] Erythrocytes detection in urine sediment by light microscopy Erythrocytes detection in urine sediment by light microscopy NONE 0 - 5 09/29/2017 [facility] Specific gravity of Urine by Test strip Specific gravity of Urine by Test strip 1.010 1.010 - 1.025 09/29/2017 [facility] Transitional cells detection in urine sediment by light microscopy Transitional cells detection in urine sediment by light microscopy FEW NONE 09/29/2017 [facility] Urine clarity Urine clarity SL CLOUDY CLEAR 09/29/2017 [facility] Urine color determination Urine color determination YELLOW YELLOW 09/29/2017 [facility] Urine erythrocytes detection Urine erythrocytes detection NEGATIVE NEGATIVE 09/29/2017 [facility] Urine glucose detection Urine glucose detection NEGATIVE NEGATIVE 09/29/2017 [facility] Urine ketones detection by automated test strip Urine ketones detection by automated test strip NEGATIVE NEGATIVE 09/29/2017 [facility] Urine leukocyte esterase detection by dipstick Urine leukocyte esterase detection by dipstick 1+ NEGATIVE 09/29/2017 [facility] Urine nitrite detection Urine nitrite detection NEGATIVE NEGATIVE 09/29/2017 [facility] Urine pH measurement by automated test strip Urine pH measurement by automated test strip 6 5 - 7 09/29/2017 [facility] Urine protein measurement by test strip (mass/volume) Urine protein measurement by test strip (mass/volume) NEGATIVE NEGATIVE 09/29/2017 [facility] Urine total bilirubin measurement (mass/volume) Urine total bilirubin measurement (mass/volume) NEGATIVE NEGATIVE 09/29/2017 [facility] Urine urobilinogen measurement by test strip (mass/volume) Urine urobilinogen measurement by test strip (mass/volume) 0.2 0.2 - 1 09/29/2017 [facility] Pathology Reports No Data Provided for This [...] artifact at levels of the fusion. 09/12/2012 [facility] Consultation Notes No Data Provided for This Section Discharge Summaries No Data Provided for This Section History and Physicals No Data Provided for This Section Vital Signs Vital Sign Value Date Comments Source Weight 75 09/13/2012 [facility] Height 157.48 cm 09/13/2012 [facility] Encounters Location Location Details Encounter Type Encounter Number Reason For Visit Attending Provider ADM Date DC Date Status Source [facility] Emergency [id number] KATINA PAREDES 09/12/2012 09/12/[address] [facility] Outpatient [id number] 724.6, ANKYLOSIS OF [facility] 09/15/2012 Active [facility] [id number] INESSA ONEAL MD 01/22/2017 [facility] Registered [facility] [id number] INESSA ONEAL MD 06/04/2017 [facility] [id number] INESSA ONEAL MD 09/10/2017 [facility] Departed Emergency Room [id number] TIERRA LEE MD 09/29/2017 09/29/2017 [facility] Procedures Procedure Code Date Perfomer Comments Source Computed tomography of brain without radiopaque contrast [id number] 09/29/2017 [facility] Computed tomography of cervical spine without contrast [id number] 09/29/2017 [facility] X-ray of chest, two views [id number] 09/10/2017 [facility] Computed tomography of chest without contrast [id number] 06/04/2017 [facility] X-ray of chest, two views [id number] 01/22/2017 [facility] Lumbar spinal fusion [id number] [facility] Assessment and Plan No Data Provided for This Section Plan of Care Plan of Care Date Source Discharge Date 09/29/17 11:10pm Disposition HOME, SELF-CARE Condition at Discharge Stable Instructions/Education Provided Headache Urinary Tract Infection - Women Forms Provided Work/School Excuse Prescriptions See Medication Section Referrals FARHAD DELATORRE MD Address: [address] [place], [place] [id number] TR ESCUDERO MD Address: [address] [address] Additional Instructions/Education 1. follow up with your doctor in 1-2 days without fail 2. return to ed as needed 3. increase oral fluids 4. tylenol and motrin as needed 09/29/2017 [facility] Social History Social History Date Source Social [...] Start Date Stop Date Never Smoker 09/29/2017 [facility] Family History Value Date Source Relationship Condition [...] hypertension 30's - 40 04/24/2015 4:09am 09/29/2017 [facility] Advance Directives Order Name Results Value Date Source Advance Directives Advance Directives Directive Response Recorded Date/Time Does the patient have an advance directive? No 11/07/16 12:00am If yes, is advance directive on file with [facility]? No 11/07/16 12:00am If not on file with [facility] will patient provide a copy? No 11/26/16 3:52pm Do you have a Directive to Physician? No 09/29/17 6:22pm Do you have a Medical Power of [employer]? No 09/29/17 6:22pm Do you have an [...] rights and responsibilities? Yes 09/29/17 6:22pm 09/29/2017 [facility] Functional Status No Data Provided for This Section
[2018-10-22 18:46] LABS: BASOPHILS # (AUTO) 0.1 (0.0-0.1); BASOPHILS % 0.4 % (0.0-1.0); EOSINOPHILS # (AUTO) 0.3 (0.0-0.4); EOSINOPHILS % 1.6 % (0.0-6.0); HEMATOCRIT 44.7 % (34.2-44.1); HEMOGLOBIN 15.1 g/dL (12.0-16.0); LYMPHOCYTES # (AUTO) 6.2 (1.0-3.2); LYMPHOCYTES % 30.3 % (18.0-39.1); MEAN CORPUSCULAR HEMOGLOBIN 29.6 pg (28-32); MEAN CORPUSCULAR HGB CONC 33.8 g/dL (31-35); MEAN CORPUSCULAR VOLUME 87.6 fL (81-99); MONOCYTES # (AUTO) 1.6 (0.2-0.8); MONOCYTES % 7.7 % (4.4-11.3); NEUTROPHILS # (AUTO) 12.2 (2.1-6.9); NEUTROPHILS % 59.6 % (38.7-80.0); PLATELET COUNT 530 x10e3/uL (140-360); RED CELL DISTRIBUTION WIDTH 13.9 % (11.7-14.4)
[2018-10-22 19:07] LABS: ALANINE AMINOTRANSFERASE 14 IU/L (0-55); ALBUMIN 3.9 g/dL (3.5-5.0); ALBUMIN/GLOBULIN RATIO 1.1 (0.8-2.0); ALKALINE PHOSPHATASE 83 IU/L (40-150); ANION GAP 14.9 mmol/L (8-16); BLOOD UREA NITROGEN 15 mg/dL (7-26); BUN/CREATININE RATIO 21 (6-25); CALCIUM 10.3 mg/dL (8.4-10.2); CARBON DIOXIDE 27 mmol/L (22-29); CHLORIDE 104 mmol/L (98-107); CREATININE, SERUM 0.71 mg/dL (0.57-1.11); EST GLOMERULAR FILTRATION RATE > 60 ML/MIN (60-); GLUCOSE 179 mg/dL (74-118); POTASSIUM 3.9 mmol/L (3.5-5.1); SODIUM 142 mmol/L (136-145)
--- NOTE | 2018-10-22 19:50 | Diagnostic Imaging Report ---
EXAM: CT Abdomen and Pelvis WITHOUT contrast INDICATION: Left flank pain. COMPARISON: 10/15/2018. TECHNIQUE: Abdomen and pelvis were scanned utilizing a multidetector helical scanner from the lung base to the pubic symphysis without administration of IV contrast. Absence of intravenous contrast decreases sensitivity for detection of focal lesions and vascular pathology. Coronal and sagittal reformations were obtained. Renal stone protocol was performed. IV CONTRAST: None. ORAL CONTRAST: Water RADIATION DOSE: Total DLP: 630.81 mGy*cm Estimated effective dose: (DLP x 0.015 x size factor) mSv COMPLICATIONS: None FINDINGS: LINES and TUBES: None. LOWER THORAX: Unremarkable HEPATOBILIARY: The liver is diffuse hypodense compared to the spleen, consistent with diffuse hepatic diffuse hepatic steatosis. No focal hepatic lesions. No biliary ductal dilation. GALLBLADDER: There are cholecystectomy clips. SPLEEN: No splenomegaly. PANCREAS: Fatty Infiltration of the pancreatic head. No focal masses or ductal dilatation. ADRENALS: No adrenal nodules KIDNEYS/URETERS: No hydronephrosis. No cystic or solid mass lesions. No stones. GI TRACT: No abnormal distention, wall thickening, or evidence of bowel obstruction. Appendix is nonvisualized. PELVIC ORGANS/BLADDER: The uterus is absent. LYMPH NODES: No lymphadenopathy. VESSELS: There is moderate atherosclerotic disease in the aorta and major arterial branches. PERITONEUM / RETROPERITONEUM: No free air or fluid. BONES: Status post fusion of L5-S2 with transpedicular screws system. SOFT TISSUES: Subcutaneous fat stranding in the anterior left lower quadrant without fluid collections. Baclofen pump in the subcutaneous of the right lower quadrant. Recurrent hernia in the supra umbilical region, with evidence of prior repair with mesh. IMPRESSION: 1. No interval change since 10/15/18. No nephrolithiasis or obstructive uropathy. Signed by: Dr. Meño Beckman M.D. on 10/22/2018 7:47 PM
[2018-10-22] MEDS ORDERED: SODIUM CHLORIDE 0.9% 1000ML 1,000 ML IV SCH (20:30)
[2018-10-22] MEDS ORDERED: CEFTRIAXONE SOD 1 GM/NS 50 ML 50 ML IV SCH (20:30)
[2018-10-22 20:51] LABS: BILIRUBIN,URINE NEGATIVE (NEGATIVE); CLARITY,URINE SL CLOUDY (CLEAR); COLOR,URINE YELLOW (YELLOW); KETONES,URINE NEGATIVE (NEGATIVE); LEUKOCYTE ESTERASE ,URINE NEGATIVE (NEGATIVE); NITRITE,URINE NEGATIVE (NEGATIVE); PROTEIN,URINE DIPSTICK TRACE (NEGATIVE); URINE UROBILINOGEN 0.2 mg/dL (0.2 - 1)
--- OUTSIDE RECORDS SUMMARY | 2018-10-22 20:54 | XMS REPORT | Continuity of Care Document ---
Author Author Albireo Address Unknown Phone Unavailable Care Team Providers Care People Manager Name Role Phone [facility] Information My Point...Exactly Unavailable Unavailable Problems Problem Status Onset Date Classification Date Reported Comments Source Pneumonia Active 04/23/2015 Problem 09/30/2017 [facility] BACK PAIN Active 09/12/[facility] 724.6, ANKYLOSIS OF LUMBOSACRAL JOINT Active 09/03/2012 [facility] Asthma Resolved Problem 09/17/2012 [facility] Chronic pain1 Resolved Problem 09/17/2012 1Lumbar spine [facility] Diabetes mellitus Resolved Problem 09/17/2012 [facility] GERD - Gastro-esophageal reflux disease Resolved Problem 09/17/2012 [facility] HTN - Hypertension Resolved Problem 09/17/2012 [facility] Anemia Active Problem 09/30/2017 [facility] Leukocytosis Active Problem 09/30/2017 [facility] SPINAL STENOSIS NOS Active [facility] Medications Medication Details Route Status Patient Instructions Ordering Provider Order Date Source Cefuroxime Axetil (Cefuroxime) 250 Mg Tablet Every 12 Hours Active [place] 11/13/2016 [facility] Dronedarone (Multaq 400MG Tablets*) 400 Mg Tab Twice Daily With Meals Active [place] 11/13/2016 [facility] Amitriptyline Hcl (Elavil) 25 Mg Tab, 1 Tab Oral Daily Active 05/31/2015 [facility] Aspirin (Asa) 81 Mg Tab, 1 Tab Oral Daily Active 05/31/2015 [facility] Benzonatate 100 Mg Capsule, 200 Mg Oral Three Times A Day Active 05/31/2015 [facility] Bifidobacterium Infantis (Align) 4 Mg Capsule, 2 Tab Oral Daily Active 05/31/2015 [facility] Celecoxib (Celebrex) 100 Mg Capsule, 2 Tab Oral Daily Active 05/31/2015 [facility] Cholestof , 1 Tab Oral Every 24 Hours as needed for Prn Active 05/31/2015 [facility] Dicyclomine Hcl 10 Mg Capsule, 1 Tab Oral Bedtime Active 05/31/2015 [facility] Duloxetine Hcl (Cymbalta) 30 Mg Capsule.dr, 1 Tab Oral Daily Active 05/31/2015 [facility] Famotidine (Pepcid) 40 Mg Tablet, 1 Tab Oral Daily Active 05/31/2015 [facility] Fe Fumarate/Fa/Vit Bcomp&C/Min (Hemocyte Plus Capsule) 1 Each Capsule, 2 Tab Oral Daily Active 05/31/2015 [facility] Fexofenadine Hcl (Edel) 180 Mg Tablet, 1 Tab Oral Daily Active 05/31/2015 [facility] Hydrocodone Bit/Acetaminophen (Anexsia 7.5-650 Tablet) 1 Each Tablet, 1 Tab Oral As Needed Active 05/31/2015 [facility] Insulin Aspart (Novolog) 100 Unit/1 Ml Cartridge, 6 Units Sub-Q Before Meals And At Bedtime Active 05/31/2015 [facility] Insulin Detemir (Levemir) 100 Unit/1 Ml Vial, 28 Units Sub-Q Before Breakfast Active 05/31/2015 [facility] Lactobac Cmb #3/Fos/Pantethine (Probiotic & Acidophilus Cap) 1 Each Capsule, 1 Cap Oral Every 24 Hours as needed for Constipation Active 05/31/2015 [facility] Lidocaine (Lidoderm Patch) 1 Ea Patch, 1 As Needed Active 05/31/2015 [facility] Losartan Potassium 25 Mg Tablet, 25 Mg Oral Twice A Day Active 05/31/2015 [facility] Metformin Hcl (Fortamet) 500 Mg Tab.osm.24, 2 Tab Oral Daily Active 05/31/2015 [facility] Montelukast Sodium (Singulair) 10 Mg Tablet, 1 Tab Oral Daily Active 05/31/2015 [facility] Slater-3 Fatty Acids/Fish Oil (Slater 3 1,000 Mg Softgel) 1 Each Capsule, 1 Tab Oral Daily At 1700 Active 05/31/2015 [facility] Pantoprazole Sodium (Protonix) 40 Mg Tablet.dr, 1 Tab Oral Daily Active 05/31/2015 [facility] Plant Stanol Brunilda (Cholest Off) 450 Mg Tablet, 1800 Mg Oral Twice A Day Active 05/31/2015 [facility] Salmeterol Xinaf/Fluticasone (Advair 500/50) 1 Ea Aerp, 2 Daily Active 05/31/2015 [facility] Salmeterol Xinafoate/Fluticasone (Advair 500/50*) 1 Ea Aerp, 1 Puff Inhalation As Needed Active 05/31/2015 [facility] Vitamin B Complex & Vit C No.3 (B Complex With Vitamin C) 1 Each Capsule, 1 Tab Oral Daily At 1700 Active 05/31/2015 [facility] Zolpidem Tartrate (Ambien Cr) 12.5 Mg Tab.mphase, 1 Tab Oral Daily Active 05/31/2015 [facility] Gray 10/325 oral tablet 1 tab, Route: PO, Drug Form: TAB, Dosing Weight 75, kg, ONCE, Start date: 09/12/12 23:01:00, Stop date: 09/12/12 23:01:00 PO No Longer Active [place] 09/13/2012 [facility] Gray 10/325 oral tablet 1 tab, PO, Q6H, PRN, 24 tab, for pain, Substitution Allowed, Maintenance PO Active [place] 09/13/2012 [facility] Dilaudid 1 mg, 0.5 mL, Route: SUB-Q, Drug form: INJ, ONCE, Dosing Weight 75, kg, Start date: 09/12/12 21:59:00, Stop date: 09/12/12 21:59:00 SUB-Q No Longer Active [place] 09/13/2012 [facility] Vitamin B12 500 microgram, PO, Daily, Substitution Allowed PO Active 09/13/2012 [facility] Zyrtec 10 mg oral tablet 10 mg, 1 tab, PO, Daily, PRN, 30 tab, as needed for allergy symptoms, Substitution Allowed, TAB PO Active 09/13/2012 [facility] Voltaren Topical 1% topical gel 1 appl, TOP, QID, PRN, 100 gm, pain, Substitution Allowed, GEL TOP Active 09/13/2012 [facility] Dilaudid 1 mg, Route: SUB-Q, ONCE, Dosing Weight 75, kg, Start date: 09/12/12 20:50:00, Stop date: 09/12/12 20:50:00 SUB-Q No Longer Active [place] 09/13/2012 [facility] fentanyl 50 mcg, TOP, Q-, Substitution Allowed, ERFILM TOP Active 09/13/2012 [facility] Lidoderm 5% topical film (patch) Substitution Allowed Active 09/13/2012 [facility] pantoprazole 40 mg oral enteric coated tablet 40 mg, 1 tab, PO, BID, 90 tab, Substitution Allowed, ECTAB PO Active 09/13/2012 [facility] glimepiride 1 mg oral tablet 1 mg, 1 tab, PO, Daily, 90 tab, Substitution Allowed, TAB PO Active 09/13/2012 [facility] Cymbalta 30 mg oral delayed release capsule 30 mg, 1 cap, PO, BID, 180 cap, Substitution Allowed, ECCAP PO Active 09/13/2012 [facility] montelukast 10 mg oral tablet 10 mg, 1 tab, PO, Bedtime, 90 tab, Substitution Allowed, TAB PO Active 09/13/2012 [facility] losartan 100 mg oral tablet 100 mg, 1 tab, PO, Daily, 90 tab, Substitution Allowed, TAB PO Active 09/13/2012 [facility] Ambien CR 6.25 mg oral tablet, extended release 6.25 mg, 1 tab, PO, Bedtime, PRN, for sleep, Substitution Allowed, ERTAB PO Active 09/13/2012 [facility] Gray 10/325 oral tablet 1 tab, PO, Q6H, PRN, 24 tab, for pain, Substitution Allowed, Maintenance PO Active 09/13/2012 [facility] Probiotic Formula oral capsule Substitution Allowed, Maintenance Active 09/13/2012 [facility] Celebrex 100 mg oral capsule 100 mg, 1 cap, PO, Daily, 180 cap, Substitution Allowed, CAP PO Active 09/13/2012 [facility] Aspirin (Aspir 81) 81 Mg Tablet. Daily Active [facility] Carvedilol 3.125 Mg Tablet Twice A Day Active [facility] Celecoxib (Celebrex*) 100 Mg Capsule Daily Active [facility] Cetirizine Hcl (Zyrtec) 10 Mg Capsule Daily Active THERAPEUTICALLY SUBSTITUTED WITH LORATIDINE 10MG [facility] Duloxetine Hcl (Cymbalta) 30 Mg Capsule. Twice A Day Active [facility] Famotidine 20 Mg Tab Daily Active [facility] Hydromorphone Hcl (Dilaudid) 2 Mg Tab Every 6 Hours as needed for Pain Active [facility] Hydroxyzine Hcl 25 Mg Tablet Every 6 Hours as needed for Itching Active [facility] Insulin Detemir (Levemir) 100 Unit/1 Ml Vial Daily Active [facility] Insulin Lispro (Humalog) 100 Unit/1 Ml Cartridge Three Times Daily With Meals Active [facility] Lactobac Cmb #3/Fos/Pantethine (Probiotic & Acidophilus Cap) 1 Each Capsule Daily Active [facility] Levalbuterol Tartrate (Xopenex Hfa) 15 Gm Hfa.aer.ad Every 4 Hours Active [facility] Lidodderm Patch Active [facility] Losartan Potassium 25 Mg Tablet Daily Active [facility] Mirtazapine 15 Mg Tab Daily Active [facility] Montelukast Sodium 10 Mg Tablet Daily Active [facility] Nitroglycerin 0.4 Mg Tab.subl Every 5 Minutes Active [facility] Slater-3 Fatty Acids (Slater-3) 1,000 Mg Capsule Daily Active [facility] Omeprazole 40 Mg Capsule. Daily Active [facility] Ondansetron (Zofran Odt) 4 Mg Tab.rapdis Every 8 Hours as needed for Nausea And Vomiting Active [facility] Ropinirole Hcl 1 Mg Tablet Bedtime Active [facility] Ubidecarenone (Co Q-10) 200 Mg Capsule Daily Active [facility] Vitamin B Complex (B Complex) 1 Each Tablet Daily Active [facility] Allergies, Adverse Reactions, Alerts Substance Category Reaction Severity Reaction type Status Date Reported Comments Source Nitroglycerin Rash Unknown Allergy to Substance Active 09/29/2017 [facility] Iodine Unknown Allergy to Substance Active 09/29/2017 [facility] Oxycodone Unknown Allergy to Substance Active 09/29/2017 [facility] Levofloxacin Unknown Allergy to Substance Active 09/29/2017 [facility] iodine topical drug allergy Allergy Active [facility] Levaquin drug allergy Allergy Active [facility] Nitro-Bid drug allergy Allergy Active [facility] Percodan drug allergy Allergy Active [facility] Immunizations No Data Provided for This Section Results Order Name Results Value Reference Range Date Interpretation Comments Source Activated partial thromboplastin time (aPTT) in platelet poor plasma bycoagulation assay Activated partial thromboplastin time (aPTT) in platelet poor plasma bycoagulation assay 27.9 23.8 - 35.5 09/29/2017 [facility] Automated blood basophil count (count/volume) Automated blood basophil count (count/volume) 0.1 0.0 - 0.1 09/29/2017 [facility] Automated blood basophil count as percentage of total leukocytes Automated blood basophil count as percentage of total leukocytes 0.5 0.0 - 1.0 09/29/2017 [facility] Automated blood eosinophil count Automated blood eosinophil count 0.4 0.0 - 0.4 09/29/2017 [facility] Automated blood eosinophil count as percentage of total leukocytes Automated blood eosinophil count as percentage of total leukocytes 2.3 0.0 - 6.0 09/29/2017 [facility] Automated blood hematocrit (volume fraction) Automated blood hematocrit (volume fraction) 44.2 34.2 - 44.1 09/29/2017 [facility] Automated blood lymphocyte count as percentage ot total leukocytes Automated blood lymphocyte count as percentage ot total leukocytes 32.8 18.0 - 39.1 09/29/2017 [facility] Automated blood monocyte count as percentage of total leukocytes Automated blood monocyte count as percentage of total leukocytes 6.7 4.4 - 11.3 09/29/2017 [facility] Automated blood neutrophil count Automated blood neutrophil count 9.7 2.1 - 6.9 09/29/2017 [facility] Automated blood platelet count (count/volume) Automated blood platelet count (count/volume) 398 140 - 360 09/29/2017 [facility] Automated blood segmented neutrophil count as percentage of total leukocytes Automated blood segmented neutrophil count as percentage of total leukocytes 57.3 38.7 - 80.0 09/29/2017 [facility] Automated erythrocyte mean corpuscular hemoglobin (mass per erythrocyte) Automated erythrocyte mean corpuscular hemoglobin (mass per erythrocyte) 29.4 28 - 32 09/29/2017 [facility] Automated erythrocyte mean corpuscular hemoglobin concentration measurement (mass/volume) Automated erythrocyte mean corpuscular hemoglobin concentration measurement (mass/volume) 32.6 31 - 35 09/29/2017 [facility] Automated erythrocyte mean corpuscular volume Automated erythrocyte mean corpuscular volume 90.4 81 - 99 09/29/2017 [facility] Blood erythrocytes automated count (number/volume) Blood erythrocytes automated count (number/volume) 4.89 3.6 - 5.1 09/29/2017 [facility] Blood hemoglobin measurement (moles/volume) Blood hemoglobin measurement (moles/volume) 14.4 12.0 - 16.0 09/29/2017 [facility] Blood leukocytes automated count (number/volume) Blood leukocytes automated count (number/volume) 16.91 4.8 - 10.8 09/29/2017 [facility] Blood lymphocytes count (number/volume) Blood lymphocytes count (number/volume) 5.5 1.0 - 3.2 09/29/2017 [facility] Blood lymphocytes variant count (number/volume) Blood lymphocytes variant count (number/volume) 4 09/29/2017 [facility] Blood monocytes automated count (number/volume) Blood monocytes automated count (number/volume) 1.1 0.2 - 0.8 09/29/2017 [facility] Blood platelets count by estimate (number/volume) Blood platelets count by estimate (number/volume) ADEQUATE 09/29/2017 [facility] Estimated glomerular filtration rate (GFR) determination Estimated glomerular filtration rate (GFR) determination >60 60 09/29/2017 [facility] Glucose measurement Glucose measurement 104 74 - 118 09/29/2017 [facility] INR in Platelet poor plasma by Coagulation assay INR in Platelet poor plasma by Coagulation assay 1.00 09/29/2017 [facility] Manual blood lymphocytes/100 leukocytes Manual blood lymphocytes/100 leukocytes 34 19 - 48 09/29/2017 [facility] Manual blood monocytes/100 leukocytes Manual blood monocytes/100 leukocytes 6 3.4 - 9.0 09/29/2017 [facility] Manual blood neutrophils/100 leukocytes Manual blood neutrophils/100 leukocytes 56 40 - 74 09/29/2017 [facility] Plasma globulin measurement (mass/volume) Plasma globulin measurement (mass/volume) 3.8 2.3 - 3.5 09/29/2017 [facility] Platelet morphology Platelet morphology FEW LARGE 09/29/2017 [facility] Prothrombin time (PT) in platelet poor plasma by coagulation assay Prothrombin time (PT) in platelet poor plasma by coagulation assay 12.4 11.9 - 14.5 09/29/2017 [facility] RBC morphology RBC morphology NORMAL 09/29/2017 [facility] Serum or plasma alanine aminotransferase measurement (enzymatic activity/volume) Serum or plasma alanine aminotransferase measurement (enzymatic activity/volume) 14 0 - 55 09/29/2017 [facility] Serum or plasma albumin measurement (mass/volume) Serum or plasma albumin measurement (mass/volume) 3.7 3.5 - 5.0 09/29/2017 [facility] Serum or plasma albumin/globulin mass ratio Serum or plasma albumin/globulin mass ratio 1.0 0.8 - 2.0 09/29/2017 [facility] Serum or plasma alkaline phosphatase measurement (enzymatic activity/volume) Serum or plasma alkaline phosphatase measurement (enzymatic activity/volume) 70 40 - 150 09/29/2017 [facility] Serum or plasma anion gap Serum or plasma anion gap 13.4 8 - 16 09/29/2017 [facility] Serum or plasma calcium measurement (mass/volume) Serum or plasma calcium measurement (mass/volume) 9.7 8.4 - 10.2 09/29/2017 [facility] Serum or plasma carbon dioxide, total measurement (moles/volume) Serum or plasma carbon dioxide, total measurement (moles/volume) 32 22 - 29 09/29/2017 [facility] Serum or plasma chloride measurement (moles/volume) Serum or plasma chloride measurement (moles/volume) 97 98 - 107 09/29/2017 [facility] Serum or plasma creatine kinase MB measurement (mass/volume) Serum or plasma creatine kinase MB measurement (mass/volume) 0.80 0 - 5.0 09/29/2017 [facility] Serum or plasma creatine kinase measurement (enzymatic activity/volume) Serum or plasma creatine kinase measurement (enzymatic activity/volume) 17 29 - 168 09/29/2017 [facility] Serum or plasma creatinine measurement (mass/volume) Serum or plasma creatinine measurement (mass/volume) 0.72 0.57 - 1.11 09/29/2017 [facility] Serum or plasma potassium measurement (moles/volume) Serum or plasma potassium measurement (moles/volume) 4.4 3.5 - 5.1 09/29/2017 [facility] Serum or plasma protein measurement (mass/volume) Serum or plasma protein measurement (mass/volume) 7.5 6.5 - 8.1 09/29/2017 [facility] Serum or plasma sodium measurement (moles/volume) Serum or plasma sodium measurement (moles/volume) 138 136 - 145 09/29/2017 [facility] Serum or plasma total bilirubin measurement (mass/volume) Serum or plasma total bilirubin measurement (mass/volume) 0.3 0.2 - 1.2 09/29/2017 [facility] Serum or plasma urea nitrogen measurement (mass/volume) Serum or plasma urea nitrogen measurement (mass/volume) 16 7 - 26 09/29/2017 [facility] Serum or plasma urea nitrogen/creatinine mass ratio Serum or plasma urea nitrogen/creatinine mass ratio 22 6 - 25 09/29/2017 [facility] Troponin I measurement by highly sensitive enzyme immunoassay Troponin I measurement by highly sensitive enzyme immunoassay <0.001 0 - 0.300 09/29/2017 [facility] Red Cell Distribution Width 13.6 11.7 - 14.4 09/29/2017 [facility] IM GRANULOCYTES % 0.4 0.0 - 1.0 09/29/2017 [facility] Absolute Immature Granulocyte (auto 0.07 0 - 0.1 09/29/2017 [facility] Differential Total Cells Counted 100 09/29/2017 [facility] Aspartate Amino Transf (AST/SGOT) 21 5 - 34 09/29/2017 [facility] Automated urine sediment leukocyte count by microscopy (number/high power field) Automated urine sediment leukocyte count by microscopy (number/high power field) <20 0 - 5 09/29/2017 [facility] Bacteria detection in urine sediment by light microscopy Bacteria detection in urine sediment by light microscopy FEW NONE 09/29/2017 [facility] Epithelial cells detection in urine sediment by light microscopy Epithelial cells detection in urine sediment by light microscopy MODERATE NONE 09/29/2017 [facility] Erythrocytes detection in urine sediment by light microscopy Erythrocytes detection in urine sediment by light microscopy NONE 0 - 5 09/29/2017 [facility] Specific gravity of Urine by Test strip Specific gravity of Urine by Test strip 1.010 1.010 - 1.025 09/29/2017 [facility] Transitional cells detection in urine sediment by light microscopy Transitional cells detection in urine sediment by light microscopy FEW NONE 09/29/2017 [facility] Urine clarity Urine clarity SL CLOUDY CLEAR 09/29/2017 [facility] Urine color determination Urine color determination YELLOW YELLOW 09/29/2017 [facility] Urine erythrocytes detection Urine erythrocytes detection NEGATIVE NEGATIVE 09/29/2017 [facility] Urine glucose detection Urine glucose detection NEGATIVE NEGATIVE 09/29/2017 [facility] Urine ketones detection by automated test strip Urine ketones detection by automated test strip NEGATIVE NEGATIVE 09/29/2017 [facility] Urine leukocyte esterase detection by dipstick Urine leukocyte esterase detection by dipstick 1+ NEGATIVE 09/29/2017 [facility] Urine nitrite detection Urine nitrite detection NEGATIVE NEGATIVE 09/29/2017 [facility] Urine pH measurement by automated test strip Urine pH measurement by automated test strip 6 5 - 7 09/29/2017 [facility] Urine protein measurement by test strip (mass/volume) Urine protein measurement by test strip (mass/volume) NEGATIVE NEGATIVE 09/29/2017 [facility] Urine total bilirubin measurement (mass/volume) Urine total bilirubin measurement (mass/volume) NEGATIVE NEGATIVE 09/29/2017 [facility] Urine urobilinogen measurement by test strip (mass/volume) Urine urobilinogen measurement by test strip (mass/volume) 0.2 0.2 - 1 09/29/2017 [facility] Pathology Reports No Data Provided for This [...] artifact at levels of the fusion. 09/12/[facility] Consultation Notes No Data Provided for This Section Discharge Summaries No Data Provided for This Section History and Physicals No Data Provided for This Section Vital Signs Vital Sign Value Date Comments Source Weight 75 09/13/2012 [facility] Height 157.48 cm 09/13/2012 [facility] Encounters Location Location Details Encounter Type Encounter Number Reason For Visit Attending Provider ADM Date DC Date Status Source [facility] Emergency [id number] KATINA PAREDES 09/12/2012 09/12/2012 Discharged [facility] Outpatient [id number] 724.6, ANKYLOSIS OF LUMBOSACRAL JOINT DANGELO CLIF 09/15/2012 Active [facility] [id number] INESSA ONEAL MD 01/22/2017 [facility] [id number] INESSA ONEAL MD 06/04/2017 [facility] [id number] INESSA ONEAL MD 09/10/2017 [facility] Departed Emergency Room [id number] TIERRA LEE MD 09/29/2017 09/29/2017 [facility] Procedures Procedure Code Date Perfomer Comments Source Computed tomography of brain without radiopaque contrast [id number] 09/29/2017 [facility] Computed tomography of cervical spine without contrast [id number] 09/29/2017 [facility] X-ray of chest, two views [id number] 09/10/2017 [facility] Computed tomography of chest without contrast [id number] 06/04/2017 [facility] X-ray of chest, two views [id number] 01/22/2017 KIM[facility] Lumbar spinal fusion [id number] [facility] Assessment and Plan No Data Provided for This Section Plan of Care Plan of Care Date Source Discharge Date 09/29/17 11:10pm Disposition HOME, SELF-CARE Condition at Discharge Stable Instructions/Education Provided Headache Urinary Tract Infection - Women Forms Provided Work/School Excuse Prescriptions See Medication Section Referrals FARHAD DELATORRE MD Address: [address] [place], [place] [id number] TR ESCUDERO MD Address: [address] [address] Additional Instructions/Education 1. follow up with your doctor in 1-2 days without fail 2. return to ed as needed 3. increase oral fluids 4. tylenol and motrin as needed 09/29/2017 [facility] Social History Social History Date Source Social [...] Start Date Stop Date Never Smoker 09/29/2017 [facility] Family History Value Date Source Relationship Condition [...] hypertension 30's - 40 04/24/2015 4:09am 09/29/2017 [facility] Advance Directives Order Name Results Value Date Source Advance Directives Advance Directives Directive Response Recorded Date/Time Does the patient have an advance directive? No 11/07/16 12:00am If yes, is advance directive on file with [facility]? No 11/07/16 12:00am If not on file with [facility] will patient provide a copy? No 11/26/16 3:52pm Do you have a Directive to Physician? No 09/29/17 6:22pm Do you have a Medical Power of Spiral Machine Operator? No 09/29/17 6:22pm Do you have an [...] rights and responsibilities? Yes 09/29/17 6:22pm 09/29/2017 [facility] Functional Status No Data Provided for This Section
--- NOTE | 2018-10-22 21:03 | NUR ---
PT ASKING FOR "MORPHINE OR DILAUDID FOR PAIN" DR QUIÑONEZ AT BEDSIDE SPEAKING WITH PT
[2018-10-22 21:05] LABS: EPITHELIAL CELLS,URINE RARE /LPF
[2018-10-22] MEDS ORDERED: SODIUM CHLORIDE 0.9% 1000ML 1,000 ML ONE (21:13)
--- NOTE | 2018-10-22 21:32 | NUR ---
DR QUIÑONEZ SPOKE WITH PT ABOUT DISCHRGE, PT GOT ANGRY SAYING SHE WAS "HAVING SEVERE PAIN" STATES "TAKE MY IV OUT". PTS IV CATHETER REMOVED AND DISCHARGE PAPERS GIVEN
== END 2018-10-22 21:44 | disposition home or self-care (01) ==
LOC: ER 18:09 → ERHOLD 20:40 → UNDOADMIN 20:40 → ER 21:44
DX: M54.5 Low back pain (principal); G89.29 Other chronic pain; F11.14 Opioid abuse with opioid-induced mood disorder
CPT/HCPCS: 36415; 74176; 80053; 81001; 85025; 99284; J7030

== ENCOUNTER 2019-03-12 23:56 | Emergency (ER) | payer MEDICARE ==
[~2019-03-12] VITALS: Ht 157.5 cm; Wt 83.9 kg
[2019-03-13] MEDS ORDERED: METHYLPREDNISOLONE SOD SUCC 125 MG/2ML VIAL IV STA (00:14)
[2019-03-13] MEDS ORDERED: ALBUTEROL/IPRATROPIUM 3 ML NEB NEB PRN (00:15)
[2019-03-13] MEDS ORDERED: ASPIRIN 81 MG CHEW TAB PO ONE (00:15)
[2019-03-13] MEDS ORDERED: ALBUTEROL/IPRATROPIUM 3 ML NEB NEB ONE (00:15)
[2019-03-13 00:44] LABS: BASOPHILS # (AUTO) 0.1 (0.0-0.1); BASOPHILS % 0.4 % (0.0-1.0); EOSINOPHILS # (AUTO) 0.7 (0.0-0.4); EOSINOPHILS % 4.1 % (0.0-6.0); HEMATOCRIT 39.3 % (34.2-44.1); HEMOGLOBIN 12.8 g/dL (12.0-16.0); LYMPHOCYTES % 34.1 % (18.0-39.1); MEAN CORPUSCULAR HEMOGLOBIN 29.2 pg (28-32); MEAN CORPUSCULAR HGB CONC 32.6 g/dL (31-35); MEAN CORPUSCULAR VOLUME 89.5 fL (81-99); MONOCYTES # (AUTO) 1.4 (0.2-0.8); MONOCYTES % 7.7 % (4.4-11.3); NEUTROPHILS # (AUTO) 9.3 (2.1-6.9); NEUTROPHILS % 53.1 % (38.7-80.0); PLATELET COUNT 424 x10e3/uL (140-360); RED BLOOD COUNT 4.39 x10e6/uL (3.6-5.1); RED CELL DISTRIBUTION WIDTH 13.8 % (11.7-14.4)
[2019-03-13 01:05] LABS: ALANINE AMINOTRANSFERASE 10 IU/L (0-55); ALBUMIN 3.2 g/dL (3.5-5.0); ALBUMIN/GLOBULIN RATIO 0.9 (0.8-2.0); ALKALINE PHOSPHATASE 77 IU/L (40-150); BLOOD UREA NITROGEN 11 mg/dL (7-26); BUN/CREATININE RATIO 18 (6-25); CALCIUM 9.3 mg/dL (8.4-10.2); CARBON DIOXIDE 29 mmol/L (22-29); CREATINE KINASE 24 IU/L (29-168); CREATININE, SERUM 0.61 mg/dL (0.57-1.11); EST GLOMERULAR FILTRATION RATE > 60 ML/MIN (60-); GLUCOSE 102 mg/dL (74-118)
[2019-03-13 01:15] LABS: ANION GAP 14.3 mmol/L (8-16); CHLORIDE 102 mmol/L (98-107); POTASSIUM 4.3 mmol/L (3.5-5.1); SODIUM 140 mmol/L (136-145)
--- NOTE | 2019-03-13 01:32 | Diagnostic Imaging Report ---
EXAMINATION: CHEST 2 VIEWS INDICATION: Cough, fever. COMPARISON: Chest radiograph 06/30/2018. FINDINGS: TUBES and LINES: None. LUNGS: Low lung volumes. Mild bronchial wall thickening. Linear subsegmental atelectasis in the right midlung. Mild patchy bibasilar opacities, likely atelectasis. Central vascular congestion. No evidence of lobar pneumonia or pulmonary edema. PLEURA: No pleural effusion or pneumothorax. HEART AND MEDIASTINUM: The cardiomediastinal silhouette is unremarkable. There are atherosclerotic calcifications within the aorta. BONES AND SOFT TISSUES: No acute osseous abnormality. UPPER ABDOMEN: No free air under the diaphragm. Surgical clips project over the right upper quadrant. IMPRESSION: Mild bronchial wall thickening could reflect bronchitis in the appropriate clinical setting. No evidence of lobar pneumonia. Signed by: Dr. Ashlie Escalante MD on 03/13/2019 1:28 AM
[2019-03-13] MEDS ORDERED: AZITHROMYCIN 500MG/NS 250 ML 250 ML IV STA (02:05)
[2019-03-13] MEDS ORDERED: AZITHROMYCIN 500MG/NS 250 ML 250 ML ONE (02:19)
[2019-03-13 04:11] VITALS: BP 115/49
== END 2019-03-13 04:35 | disposition home or self-care (01) ==
LOC: ER 23:56
DX: R50.9 Fever, unspecified (principal); R05 Cough; R07.89 Other chest pain; J44.9 Chronic obstructive pulmonary disease, unspecified
CPT/HCPCS: 36415; 71046; 80053; 82550; 82553; 83880; 84484; 85025; 87400; 94640; 99284; J0456; J2930

== ENCOUNTER → 2019-06-15 | Outpatient (CLI) | payer MEDICARE ==
--- NOTE | 2019-06-15 14:51 | Diagnostic Imaging Report ---
EXAMINATION: CHEST 2 VIEWS INDICATION: Cough COMPARISON: Chest radiograph 03/13/2019 FINDINGS: LINES/TUBES:None LUNGS:The lungs are moderately inflated. No focal consolidation or pulmonary edema. Unchanged subsegmental atelectasis at the right mid lung and right lung base. PLEURA:No pleural effusion or pneumothorax. MEDIASTINUM:The cardiomediastinal silhouette appears normal in size and shape. BONES/SOFT TISSUES:No acute osseous injury. ABDOMEN:No free air under the diaphragm. IMPRESSION: No focal pneumonia or pulmonary edema. Unchanged subsegmental atelectasis at the right mid lung and right lung base. Signed by: Luz Peterson MD on 06/15/2019 2:48 PM
== END ==
LOC: RAD 14:07
PROVIDERS: ATTEND Internal Medicine Pulmonary Disease
DX: R05 Cough (principal)
CPT/HCPCS: 71046

== ENCOUNTER 2019-10-17 16:11 | Emergency (ER) | payer MEDICARE ==
[~2019-10-17] VITALS: Ht 157.5 cm; Wt 83.9 kg
[2019-10-17] MEDS ORDERED: KETOROLAC TROMETHAMINE 60 MG/2 ML VIAL IM ONE (17:00)
[2019-10-17] MEDS ORDERED: METHYLPREDNISOLONE SOD SUCC 125 MG/2ML VIAL IV ONE (17:00)
--- NOTE | 2019-10-17 17:19 | Emergency Department Note ---
History of Present Illnes History of Present Illness Chief Complaint: Back Pain History of Present Illness This is a 74 year old female arrived to the ED with left-sided hip pain, patient requesting an IM shot like the one given to her by Dr. Pathak. Chief Complaint Comment Pt reports chronic Left hip pain states was unable to to go to her pain specialist Dr. Pathak d/t him not giving any shots in his office due to Covid. NAD noted at the present time. Historian: Patient Arrival Mode: Car Bead Cutter Required: No Onset (how long ago): day(s) Radiation: Reports non-radiation Severity: mild Onset quality: gradual Duration (how long): day(s) Progression: unchanged Chronicity: recurrent Context: Denies recent illness, Denies trauma/injury Relieving factors: none Exacerbating factors: none Past Medical/Family History Physician Review I have reviewed the patient's past medical and family history. Any updates have been documented here. Past Medical History Recent Fever: No Clinical Suspicion of Infectio: No New/Unexplained Change in Ment: No Past Medical History: Hypertension, Diabetes, COPD, A-Fib, Kidney Stones, GERD, Chronic Back Pain, Osteoarthritis Other Medical History: IRREGULAR HEART BEAT fibromyalgia diverticulosis neuropathy chronic back pain-implanted pain pump-dilaudid CYSTIC FIBROSIS Past Surgical History: Cholecysctectomy, Appendectomy, Hysterectomy, T&A, Back Surgery Other Surgery: BLADDER SX Social History Smoking Cessation: Former smoker Other Last Tetanus: UNKNOWN Review of Systems Review of Systems Constitutional: Reports no symptoms EENTM: Reports no symptoms Cardiovascular: Reports no symptoms Respiratory: Reports no symptoms Gastrointestinal: Reports no symptoms Genitourinary: Reports no symptoms Musculoskeletal: Reports as per HPI, Reports back pain Integumentary: Reports no symptoms Neurological: Reports no symptoms Psychological: Reports no symptoms Endocrine: Reports no symptoms Hematological/Lymphatic: Reports no symptoms Review of other systems: All other systems negative Physical Exam Related Data Allergies: Coded Allergies: Estrogens (Verified Allergy, Unknown, HIVES, 10/21/18) iodine (Verified Allergy, Unknown, HIVES, 11/02/17) levofloxacin (Verified Allergy, Unknown, HIVES, 11/02/17) metformin (Verified Allergy, Unknown, 05/31/18) nitroglycerin (Verified Allergy, Unknown, Rash, 09/29/17) Pt is not allergic to nitroglycerin SL, but the ointment causes a red scaly rash oxycodone (Verified Allergy, Unknown, HIVES, 11/02/17) Triage Vital Signs Vital Signs Date Time Temp Pulse Resp B/P (MAP) Pulse Ox O2 Delivery O2 Flow Rate FiO2 10/17/19 16:43 98.7 77 16 143/50 97 Room Air Vital signs reviewed: Yes Physical Exam CONSTITUTIONAL Constitutional: Present well-developed, Present well-nourished HENT HENT: Present normocephalic, Present atraumatic, Present oropharynx clear/moist, Present nose normal HENT L/R: Present left ext ear normal, Present right ext ear normal EYES Eyes: Reports PERRL, Reports conjunctivae normal NECK Neck: Present ROM normal PULMONARY Pulmonary: Present effort normal, Present breath sounds normal CARDIOVASCULAR Cardiovascular: Present regular rhythm, Present heart sounds normal, Present capillary refill normal, Present normal rate GASTROINTESTINAL Abdominal: Present soft, Present nontender, Present bowel sounds normal GENITOURINARY Genitourinary: Present exam deferred SKIN Skin: Present warm, Present dry MUSCULOSKELETAL Musculoskeletal: Present ROM normal NEUROLOGICAL Neurological: Present alert, Present oriented x 3, Present no gross motor or sensory deficits PSYCHOLOGICAL Psychological: Present mood/affect normal, Present judgement normal Assessment & Plan Medical Decision Making MDM 74-year-old well-appearing female arrived to the ED with left hip pain over her iliac crest, Solu-Medrol and ketorolac IM given. Patient noted improvement and was discharged home with pain management follow-up. Assessment & Plan Final Impression: (1) Hip pain Depart Disposition: HOME, SELF-CARE Last Vital Signs Date Time Temp Pulse Resp B/P (MAP) Pulse Ox O2 Delivery O2 Flow Rate FiO2 10/17/19 16:43 98.7 77 16 143/50 97 Room Air Home Meds Active Scripts Cefuroxime Axetil (CEFUROXIME) 250 Mg Tablet, 250 MG PO Q12H for 7 Days, TAB Prov:FARHAD DELATORRE MD 10/21/18 Mirtazapine (MIRTAZAPINE) 15 Mg Tab, 15 MG PO HS for 30 Days, #30 TAB Prov:FARHAD DELATORRE MD 10/21/18 Losartan Potassium (COZAAR) 25 Mg Tablet, 50 MG PO BID for 30 Days, #60 Prov:FARHAD DELATORRE MD 10/21/18 Hydralazine Hcl (HYDRALAZINE HCL) 25 Mg Tab, 25 MG PO BID for 30 Days, #60 TAB Prov:FARHAD DELATORRE MD 10/21/18 Reported Medications Hydrocodone Bit/Acetaminophen (NORCO 7.5-325 TABLET) 1 Each Tablet, 1 EA PO BID, TAB 06/01/18 Tiotropium [place] (SPIRIVA) 18 Mcg Cap.w.dev, 18 MCG INH DAILY, BOTTLE 06/01/18 Insulin Npl/Insulin Lispro (HUMALOG MIX 50-50 KWIKPEN) 100 Unit/1 Ml Insuln.pen, 7 U SQ AC 05/31/18 [Probiotic] No Conflict Check, 1 CAP PO DAILY 05/31/18 Ubidecarenone (COQ-10) 100 Mg Capsule, 200 MG PO DAILY 05/31/18 Levalbuterol Hcl (XOPENEX) 0.63 Mg/3 Ml Vial.neb, NEB TID 11/02/17 Dicyclomine Hcl (DICYCLOMINE HCL) 10 Mg Capsule, 20 MG PO BID 11/02/17 Ondansetron (ZOFRAN ODT) 4 Mg Tab.rapdis, 4 MG PO Q6H PRN for NAUSEA AND VOMITING, TAB 11/07/16 Celecoxib* (CELEBREX*) 100 Mg Capsule, 200 MG PO DAILY, #30 CAP 11/07/16 Aspirin (ASPIR 81) 81 Mg Tablet.dr, 81 MG PO DAILY 11/07/16 Omeprazole (OMEPRAZOLE) 40 Mg Capsule.dr, 40 MG PO DAILY 11/07/16 Carvedilol (CARVEDILOL) 3.125 Mg Tablet, 3.125 MG PO BID, #60 TAB 11/07/16 Insulin Detemir (LEVEMIR) 100 Unit/1 Ml Vial, 32 SC AM 11/07/16 Cetirizine Hcl (ZYRTEC) 10 Mg Capsule, 10 MG PO DAILY THERAPEUTICALLY SUBSTITUTED WITH LORATIDINE 10MG 11/07/16 Vitamin B Complex (B COMPLEX) 1 Each Tablet, 1 TAB PO DAILY 11/07/16 Montelukast Sodium (MONTELUKAST SODIUM) 10 Mg Tablet, 10 MG PO HS, #30 TAB 11/07/16 Nitroglycerin (NITROGLYCERIN) 0.4 Mg Tab.subl, 0.4 MG SL Q5MIN PRN for CHEST PAIN, TAB 11/07/16 Duloxetine Hcl (CYMBALTA) 30 Mg Capsule.dr, 30 MG PO BID, #30 CAP 11/07/16 Ropinirole Hcl (ROPINIROLE HCL) 1 Mg Tablet, 1 MG PO HS, #30 TAB 11/07/16 RITA QUIÑONEZ DO Oct 17, 2019 17:19
== END 2019-10-17 19:30 | disposition home or self-care (01) ==
LOC: ER 17:40
DX: M25.552 Pain in left hip (principal); I10 Essential (primary) hypertension; E11.9 Type 2 diabetes mellitus without complications; J44.9 Chronic obstructive pulmonary disease, unspecified; I48.91 Unspecified atrial fibrillation; K21.9 Gastro-esophageal reflux disease without esophagitis; M54.9 Dorsalgia, unspecified; G89.29 Other chronic pain; Z87.891 Personal history of nicotine dependence
CPT/HCPCS: 99282; J1885; J2930

== ENCOUNTER → 2020-02-02 | Outpatient (CLI) | payer MEDICARE ==
[2020-02-02 16:29] LABS: BASOPHILS # (AUTO) 0.1 (0.0-0.1); BASOPHILS % 0.4 % (0.0-1.0); EOSINOPHILS # (AUTO) 0.4 (0.0-0.4); EOSINOPHILS % 1.8 % (0.0-6.0); HEMATOCRIT 31.9 % (34.2-44.1); HEMOGLOBIN 9.3 g/dL (12.0-16.0); LYMPHOCYTES # (AUTO) 5.7 (1.0-3.2); LYMPHOCYTES % 28.7 % (18.0-39.1); MEAN CORPUSCULAR HEMOGLOBIN 22.5 pg (28-32); MEAN CORPUSCULAR HGB CONC 29.2 g/dL (31-35); MEAN CORPUSCULAR VOLUME 77.1 fL (81-99); MONOCYTES # (AUTO) 1.2 (0.2-0.8); MONOCYTES % 5.9 % (4.4-11.3); NEUTROPHILS # (AUTO) 12.4 (2.1-6.9); NEUTROPHILS % 62.7 % (38.7-80.0); PLATELET COUNT 526 x10e3/uL (140-360); RED BLOOD COUNT 4.14 x10e6/uL (3.6-5.1); RED CELL DISTRIBUTION WIDTH 16.3 % (11.7-14.4)
--- NOTE | 2020-02-02 16:32 | Diagnostic Imaging Report ---
Exam: CHEST 2 VIEWS Date: 02/02/2020 4:28 PM INDICATION: ^COUGH Comparison: 06/15/2019 FINDINGS: Lines/Tubes:None Lungs:The lungs are well inflated. No focal consolidation or pulmonary edema. Stable linear scarring at the right mid lung and right lung base. Pleura:No pleural effusion. No pneumothorax. Heart/Mediastinum:The cardiomediastinal silhouette is normal in size and contour. Bones/Soft Tissues: No acute osseous abnormality. Upper abdomen: Unremarkable. IMPRESSION: Stable exam without acute intrathoracic process. Signed by: Savage Olson MD on 02/02/2020 4:29 PM
--- NOTE | 2020-02-03 09:42 | Diagnostic Imaging Report ---
X-ray paranasal sinuses History: Allergies Findings: Well-formed and aerated paranasal sinuses without any soft tissue thickening, polyps, fluid levels, bony deformity. Impression: Unremarkable paranasal sinuses x-rays. Signed by: Mohit Gomez MD on 02/03/2020 9:39 AM
== END ==
LOC: RAD 15:31
PROVIDERS: ATTEND Internal Medicine Pulmonary Disease
DX: R05 Cough (principal); J32.9 Chronic sinusitis, unspecified; T78.40XA Allergy, unspecified, initial encounter
CPT/HCPCS: 36415; 70220; 71046; 82785; 85025

== ENCOUNTER → 2021-03-18 | Outpatient (CLI) | payer MEDICARE ==
[2021-03-18 16:21] LABS: BASOPHILS # (AUTO) 0.1 (0.0-0.1); BASOPHILS % 0.5 % (0.0-1.0); EOSINOPHILS # (AUTO) 0.6 (0.0-0.4); EOSINOPHILS % 2.8 % (0.0-6.0); HEMATOCRIT 30.4 % (34.2-44.1); HEMOGLOBIN 8.4 g/dL (12.0-16.0); LYMPHOCYTES # (AUTO) 5.1 (1.0-3.2); LYMPHOCYTES % 24.2 % (18.0-39.1); MEAN CORPUSCULAR HGB CONC 27.6 g/dL (31-35); MONOCYTES # (AUTO) 1.5 (0.2-0.8); MONOCYTES % 7.1 % (4.4-11.3); NEUTROPHILS # (AUTO) 13.6 (2.1-6.9); NEUTROPHILS % 64.8 % (38.7-80.0); PLATELET COUNT 491 x10e3/uL (140-360); RED CELL DISTRIBUTION WIDTH 18.2 % (11.7-14.4)
== END ==
LOC: RAD 15:26
PROVIDERS: ATTEND Internal Medicine Pulmonary Disease
DX: R05.9 Cough, unspecified (principal); J18.9 Pneumonia, unspecified organism; J40 Bronchitis, not specified as acute or chronic
CPT/HCPCS: 36415; 71046; 85025; 87070; 87205

== ENCOUNTER 2021-04-09 16:00 | Emergency (ER) | payer MEDICARE ==
[~2021-04-09] VITALS: Ht 152.4 cm; Wt 74.8 kg
== END 2021-04-09 16:36 | disposition home or self-care (01) ==
LOC: ER 16:08
DX: U07.1 COVID-19 (principal); J84.10 Pulmonary fibrosis, unspecified; I10 Essential (primary) hypertension; E11.9 Type 2 diabetes mellitus without complications; J44.9 Chronic obstructive pulmonary disease, unspecified; I48.91 Unspecified atrial fibrillation; Z88.8 Allergy status to other drugs, medicaments and biological substances; Z88.6 Allergy status to analgesic agent; Z88.1 Allergy status to other antibiotic agents; Z91.041 Radiographic dye allergy status; Z79.82 Long term (current) use of aspirin; Z79.4 Long term (current) use of insulin; Z79.899 Other long term (current) drug therapy
CPT/HCPCS: 99282

== ENCOUNTER → 2022-01-07 | Outpatient (CLI) | payer MEDICARE ==
[2022-01-07 12:19] LABS: BASOPHILS # (AUTO) 0.1 (0.0-0.1); BASOPHILS % 0.4 % (0.0-1.0); EOSINOPHILS # (AUTO) 0.4 (0.0-0.4); EOSINOPHILS % 2.3 % (0.0-6.0); HEMATOCRIT 35.1 % (34.2-44.1); HEMOGLOBIN 10.3 g/dL (12.0-16.0); LYMPHOCYTES # (AUTO) 3.8 (1.0-3.2); LYMPHOCYTES % 23.3 % (18.0-39.1); MEAN CORPUSCULAR HEMOGLOBIN 23.1 pg (28-32); MEAN CORPUSCULAR HGB CONC 29.3 g/dL (31-35); MEAN CORPUSCULAR VOLUME 78.9 fL (81-99); MONOCYTES # (AUTO) 1.3 (0.2-0.8); MONOCYTES % 7.8 % (4.4-11.3); NEUTROPHILS # (AUTO) 10.7 (2.1-6.9); NEUTROPHILS % 65.7 % (38.7-80.0); PLATELET COUNT 419 x10e3/uL (140-360); RED BLOOD COUNT 4.45 x10e6/uL (3.6-5.1); RED CELL DISTRIBUTION WIDTH 16.3 % (11.7-14.4)
[2022-01-07 12:38] LABS: ANION GAP 12.8 mmol/L (8-16); CALCIUM 9.5 mg/dL (8.4-10.2); CREATININE, SERUM 0.69 mg/dL (0.57-1.11); POTASSIUM 3.8 mmol/L (3.5-5.1)
== END ==
LOC: RAD 11:50
PROVIDERS: ATTEND Internal Medicine Pulmonary Disease
DX: J84.10 Pulmonary fibrosis, unspecified (principal)
CPT/HCPCS: 36415; 71046; 80048; 85025

== ENCOUNTER 2022-05-17 05:05 | Inpatient (IN) | payer MEDICARE ==
[~2022-05-17] VITALS: Ht 157.5 cm; Wt 79.4 kg
[2022-05-17 05:57] LABS: BASOPHILS # (AUTO) 0.1 (0.0-0.1); BASOPHILS % 0.3 % (0.0-1.0); EOSINOPHILS # (AUTO) 0.5 (0.0-0.4); EOSINOPHILS % 2.4 % (0.0-6.0); HEMATOCRIT 28.1 % (34.2-44.1); HEMOGLOBIN 7.4 g/dL (12.0-16.0); LYMPHOCYTES # (AUTO) 2.9 (1.0-3.2); LYMPHOCYTES % 14.6 % (18.0-39.1); MEAN CORPUSCULAR HEMOGLOBIN 19.6 pg (28-32); MEAN CORPUSCULAR HGB CONC 26.3 g/dL (31-35); MEAN CORPUSCULAR VOLUME 74.5 fL (81-99); MONOCYTES # (AUTO) 1.7 (0.2-0.8); MONOCYTES % 8.3 % (4.4-11.3); NEUTROPHILS # (AUTO) 14.9 (2.1-6.9); NEUTROPHILS % 73.7 % (38.7-80.0); PLATELET COUNT 435 x10e3/uL (140-360); RED BLOOD COUNT 3.77 x10e6/uL (3.6-5.1); RED CELL DISTRIBUTION WIDTH 21.2 % (11.7-14.4)
[2022-05-17 06:19] LABS: ALBUMIN/GLOBULIN RATIO 0.8 (0.8-2.0); ANION GAP 12.2 mmol/L (8-16); CALCIUM 8.6 mg/dL (8.4-10.2); CREATININE, SERUM 0.57 mg/dL (0.57-1.11); POTASSIUM 4.2 mmol/L (3.5-5.1)
[2022-05-17] MEDS ORDERED: ALBUTEROL/IPRATROPIUM 3 ML NEB NEB ONE (06:30)
[2022-05-17] MEDS ORDERED: ASPIRIN 81 MG CHEW TAB PO ONE (09:15)
[2022-05-17] MEDS ORDERED: SODIUM CHLORIDE FLUSH 10 ML SYR INJ PRN (09:15)
[2022-05-17] MEDS ORDERED: ONDANSETRON HCL INJ 2MG/ML 2ML 2 MG/ML VIAL IV PRN (09:15)
[2022-05-17 10:10] VITALS: BP 133/81
[2022-05-17 10:17] VITALS: BP 133/81
[2022-05-17 10:23] LABS: BAND NEUTROPHILS % (MANUAL) 4 %; EOSINOPHILS % (MANUAL) 1 % (0-7); LYMPHOCYTES % (MANUAL) 19 % (19-48); MONOCYTES % (MANUAL) 5 % (3.4-9.0); NEUTROPHILS % (MANUAL) 71 % (40-74)
[2022-05-17 10:25] LABS: ANISOCYTOSIS SLIGHT; HYPOCHROMASIA SLIGHT; PLATELET ESTIMATE SLIGHTLY INCREASED; PLATELET MORPHOLOGY COMMENT NORMAL
[2022-05-17] MEDS ORDERED: HUMALOG MI100 UNIT/2 SQ ×2 (11:14)
[2022-05-17] MEDS ORDERED: OCEAN104 ML (11:39)
[2022-05-17] MEDS ORDERED: CLOTRIMAZOLE15 GM TOP (11:39)
[2022-05-17] MEDS ORDERED: CARAFATE1 GM PO (11:39)
[2022-05-17] MEDS ORDERED: SYMBICORT 16010.2 GM INH (11:39)
[2022-05-17] MEDS ORDERED: CICLOPIROX15 GM TOP (11:39)
[2022-05-17] MEDS ORDERED: CLARITIN10 MG PO (11:39)
[2022-05-17] MEDS ORDERED: HYDROMORPHONE HC2 MG PO (11:39)
[2022-05-17] MEDS ORDERED: ZETIA10 MG PO (11:39)
[2022-05-17] MEDS ORDERED: ELIQUIS5 MG PO (11:39)
[2022-05-17] MEDS ORDERED: VOLTAREN ARTHRI20 GM (11:39)
[2022-05-17] MEDS ORDERED: SUCRALFATE 1 GM TAB PO PRN (14:00)
[2022-05-17] MEDS ORDERED: BUDESONIDE/FORMOTEROL 160/4.5MCG INHALER INH PRN (14:00)
[2022-05-17] MEDS ORDERED: ONDANSETRON HCL 4 MG ORAL DISINTEGRATING TAB PO PRN (14:00)
[2022-05-17] MEDS ORDERED: DEXTROSE 50% SYRINGE 50 ML IV PRN (14:00)
[2022-05-17 14:39] LABS: CREATINE KINASE MB 1.7 ng/mL (0-5.0)
[2022-05-17] MEDS ORDERED: INSULIN LI100 UNIT/1 (14:47)
[2022-05-17] MEDS ORDERED: INSULIN LI100 UNIT/1 SQ ×2 (14:47)
[2022-05-17] MEDS: LEVALBUTEROL HCL SOLN NEBU 0.63 MG/3 ML NEB INH SCH ×2 (15:12→19:00)
[2022-05-17] MEDS: CARVEDILOL 12.5 MG TAB PO SCH ×2 (15:20→21:39)
[2022-05-17 16:15] VITALS: BP 130/59
[2022-05-17] MEDS: DULOXETINE HCL 30 MG DELAYED RELEASE PO SCH (17:01)
[2022-05-17] MEDS: DICYCLOMINE HCL 10 MG CAP PO SCH (17:01)
[2022-05-17] MEDS: APIXABAN 5 MG TABLET PO SCH (17:02)
[2022-05-17] MEDS: Doxycycline IV 100 MG in SODIUM CHLORIDE 0.9% 100 ML IV SCH (17:29)
[2022-05-17] MEDS: INSULIN LISPRO 100 UNIT/1 ML 3ML VIAL SQ SCH ×2 (17:31→21:50)
[2022-05-17 20:00] VITALS: BP 103/63
[2022-05-17] MEDS ORDERED: LORATADINE 10 MG TAB PO SCH ×2 (21:00)
[2022-05-17] MEDS: ROPINIROLE HCL 1 MG TAB PO SCH (21:39)
[2022-05-17] MEDS: MONTELUKAST SODIUM 10 MG TAB PO SCH (21:39)
[2022-05-17] MEDS: MIRTAZAPINE 15 MG TAB PO SCH (21:39)
[2022-05-17] MEDS: EZETIMIBE 10 MG TAB PO SCH (21:40)
[2022-05-18] VITALS (7 sets, daily range): BP systolic 125–172; BP diastolic 41–69
[2022-05-18] MEDS: Doxycycline IV 100 MG in SODIUM CHLORIDE 0.9% 100 ML IV SCH ×2 (04:26→16:30)
[2022-05-18] MEDS: HYDROMORPHONE HCL 2 MG TAB PO PRN ×2 (04:38→18:28)
[2022-05-18] MEDS: TIOTROPIUM 18 MCG INH POWDER INH SCH (06:00)
[2022-05-18 06:15] LABS: BASOPHILS # (AUTO) 0.1 (0.0-0.1); BASOPHILS % 0.4 % (0.0-1.0); EOSINOPHILS # (AUTO) 0.4 (0.0-0.4); HEMATOCRIT 27.2 % (34.2-44.1); LYMPHOCYTES # (AUTO) 3.1 (1.0-3.2); MEAN CORPUSCULAR HEMOGLOBIN 19.6 pg (28-32); MEAN CORPUSCULAR HGB CONC 25.7 g/dL (31-35); MONOCYTES # (AUTO) 1.1 (0.2-0.8); MONOCYTES % 9.5 % (4.4-11.3); NEUTROPHILS # (AUTO) 7.1 (2.1-6.9); NEUTROPHILS % 60.5 % (38.7-80.0); PLATELET COUNT 383 x10e3/uL (140-360); RED BLOOD COUNT 3.58 x10e6/uL (3.6-5.1); RED CELL DISTRIBUTION WIDTH 21.8 % (11.7-14.4)
[2022-05-18 06:40] LABS: ALBUMIN 2.7 g/dL (3.5-5.0); ALBUMIN/GLOBULIN RATIO 0.8 (0.8-2.0); ANION GAP 9.7 mmol/L (8-16); CALCIUM 8.7 mg/dL (8.4-10.2); CREATININE, SERUM 0.56 mg/dL (0.57-1.11); POTASSIUM 3.7 mmol/L (3.5-5.1)
[2022-05-18 06:49] LABS: CREATINE KINASE MB 1.5 ng/mL (0-5.0)
[2022-05-18] MEDS: LEVALBUTEROL HCL SOLN NEBU 0.63 MG/3 ML NEB INH SCH ×3 (07:00→20:45)
[2022-05-18] MEDS: APIXABAN 5 MG TABLET PO SCH ×2 (08:37→16:30)
[2022-05-18] MEDS: DICYCLOMINE HCL 10 MG CAP PO SCH ×2 (08:37→16:30)
[2022-05-18] MEDS: CARVEDILOL 12.5 MG TAB PO SCH ×2 (08:37→21:22)
[2022-05-18] MEDS: PANTOPRAZOLE SOD 40 MG TABEC PO SCH (08:37)
[2022-05-18] MEDS: DULOXETINE HCL 30 MG DELAYED RELEASE PO SCH ×2 (08:37→16:30)
[2022-05-18] MEDS: INSULIN GLARGINE 100 UNITS/ML VIAL SC SCH (08:42)
[2022-05-18] MEDS: INSULIN LISPRO 100 UNIT/1 ML 3ML VIAL SQ SCH ×4 (08:42→21:45)
[2022-05-18] MEDS ORDERED: CELECOXIB 100 MG CAP PO SCH (09:00)
[2022-05-18 11:40] LABS: % IRON SATURATION 6 % (15-50); IRON 20 ug/dL (50-170); TOTAL IRON BINDING CAPACITY 351 ug/dL (261-478); TRANSFERRIN 251 mg/dL (180-382)
[2022-05-18 14:41] LABS: CREATINE KINASE MB 1.7 ng/mL (0-5.0)
[2022-05-18] MEDS: SODIUM FERRIC GLUCONATE COMPLX 125 MG in SODIUM CHLORIDE 0.9% 100 ML IV SCH (15:44)
[2022-05-18] MEDS: MONTELUKAST SODIUM 10 MG TAB PO SCH (21:21)
[2022-05-18] MEDS: EZETIMIBE 10 MG TAB PO SCH (21:21)
[2022-05-18] MEDS: ROPINIROLE HCL 1 MG TAB PO SCH (21:21)
[2022-05-18] MEDS: MIRTAZAPINE 15 MG TAB PO SCH (21:22)
[2022-05-19 01:47] VITALS: BP 133/42
[2022-05-19] MEDS: Doxycycline IV 100 MG in SODIUM CHLORIDE 0.9% 100 ML IV SCH ×2 (04:41→16:52)
[2022-05-19 05:32] VITALS: BP 147/75
[2022-05-19] MEDS: HYDROMORPHONE HCL 2 MG TAB PO PRN ×2 (05:45→17:59)
[2022-05-19 05:53] LABS: HEMATOCRIT 25.6 % (34.2-44.1)
[2022-05-19] MEDS: TIOTROPIUM 18 MCG INH POWDER INH SCH (06:00)
[2022-05-19] MEDS: LEVALBUTEROL HCL SOLN NEBU 0.63 MG/3 ML NEB INH SCH ×2 (07:50→15:00)
[2022-05-19] MEDS: DICYCLOMINE HCL 10 MG CAP PO SCH ×2 (08:25→16:52)
[2022-05-19] MEDS: CARVEDILOL 12.5 MG TAB PO SCH ×2 (08:25→21:17)
[2022-05-19] MEDS: APIXABAN 5 MG TABLET PO SCH ×2 (08:25→16:52)
[2022-05-19] MEDS: PANTOPRAZOLE SOD 40 MG TABEC PO SCH (08:25)
[2022-05-19] MEDS: DULOXETINE HCL 30 MG DELAYED RELEASE PO SCH ×2 (08:25→16:52)
[2022-05-19] MEDS: INSULIN LISPRO 100 UNIT/1 ML 3ML VIAL SQ SCH ×4 (08:30→21:00)
[2022-05-19 08:34] VITALS: BP 146/70
[2022-05-19] MEDS: INSULIN GLARGINE 100 UNITS/ML VIAL SC SCH (09:30)
[2022-05-19] MEDS ORDERED: IRON SUCROSE 100 MG in SODIUM CHLORIDE 0.9% 100 ML IV SCH (10:30)
[2022-05-19] MEDS: SODIUM FERRIC GLUCONATE COMPLX 125 MG in SODIUM CHLORIDE 0.9% 100 ML IV SCH (11:22)
[2022-05-19 12:59] VITALS: BP 137/60
[2022-05-19 17:31] VITALS: BP 146/51
[2022-05-19 20:00] VITALS: BP 140/78
[2022-05-19] MEDS: MONTELUKAST SODIUM 10 MG TAB PO SCH (21:16)
[2022-05-19] MEDS: ROPINIROLE HCL 1 MG TAB PO SCH (21:16)
[2022-05-19] MEDS: MIRTAZAPINE 15 MG TAB PO SCH (21:17)
[2022-05-19] MEDS: EZETIMIBE 10 MG TAB PO SCH (21:17)
[2022-05-20 01:35] VITALS: BP 94/52
[2022-05-20] MEDS: Doxycycline IV 100 MG in SODIUM CHLORIDE 0.9% 100 ML IV SCH (04:24)
[2022-05-20] MEDS: HYDROMORPHONE HCL 2 MG TAB PO PRN (05:51)
[2022-05-20] MEDS: TIOTROPIUM 18 MCG INH POWDER INH SCH (06:00)
[2022-05-20 06:01] LABS: HEMATOCRIT 26.8 % (34.2-44.1); HEMOGLOBIN 7.4 g/dL (12.0-16.0)
[2022-05-20 06:11] VITALS: BP 131/64
[2022-05-20] MEDS: LEVALBUTEROL HCL SOLN NEBU 0.63 MG/3 ML NEB INH SCH ×2 (06:30→14:00)
[2022-05-20 08:41] VITALS: BP 146/43
[2022-05-20 09:30] VITALS: BP 146/43
[2022-05-20] MEDS: PANTOPRAZOLE SOD 40 MG TABEC PO SCH (09:30)
[2022-05-20] MEDS: DICYCLOMINE HCL 10 MG CAP PO SCH (09:30)
[2022-05-20] MEDS: APIXABAN 5 MG TABLET PO SCH (09:31)
[2022-05-20] MEDS: INSULIN LISPRO 100 UNIT/1 ML 3ML VIAL SQ SCH ×2 (09:31→12:30)
[2022-05-20] MEDS: SODIUM FERRIC GLUCONATE COMPLX 125 MG in SODIUM CHLORIDE 0.9% 100 ML IV SCH (09:31)
[2022-05-20] MEDS: DULOXETINE HCL 30 MG DELAYED RELEASE PO SCH (09:31)
[2022-05-20] MEDS: CARVEDILOL 12.5 MG TAB PO SCH (09:31)
[2022-05-20] MEDS: INSULIN GLARGINE 100 UNITS/ML VIAL SC SCH (09:32)
[2022-05-20 12:07] VITALS: BP 139/53
[2022-05-20] MEDS ORDERED: FEROSUL325 MG PO (13:48)
[2022-05-20] MEDS ORDERED: DOXYCYCLINE HY100 MG PO (13:48)
[2022-05-20] MEDS ORDERED: CEFUROXIME250 MG PO (13:48)
[2022-05-20] MEDS ORDERED: VITAMIN C 500500 MG PO (13:48)
[2022-05-20 15:48] VITALS: BP 140/71
== END 2022-05-20 16:01 | disposition home or self-care (01) | DRG 194 ==
LOC: ER 05:10 → ERHOLD 09:16 → MED/SURG2 10:05
PROVIDERS: ADMIT Internal Medicine; ATTEND Internal Medicine
DX: J18.9 Pneumonia, unspecified organism (principal); E84.9 Cystic fibrosis, unspecified; I48.20 Chronic atrial fibrillation, unspecified; E78.5 Hyperlipidemia, unspecified; I25.10 Atherosclerotic heart disease of native coronary artery without angina pectoris; J44.9 Chronic obstructive pulmonary disease, unspecified; J84.10 Pulmonary fibrosis, unspecified; I11.0 Hypertensive heart disease with heart failure; I50.9 Heart failure, unspecified; K21.9 Gastro-esophageal reflux disease without esophagitis; M19.90 Unspecified osteoarthritis, unspecified site; M79.7 Fibromyalgia; K57.90 Diverticulosis of intestine, part unspecified, without perforation or abscess without bleeding; E11.40 Type 2 diabetes mellitus with diabetic neuropathy, unspecified; K90.0 Celiac disease; M06.9 Rheumatoid arthritis, unspecified; G89.4 Chronic pain syndrome; D50.9 Iron deficiency anemia, unspecified; Z79.82 Long term (current) use of aspirin; Z79.01 Long term (current) use of anticoagulants; Z90.49 Acquired absence of other specified parts of digestive tract; Z99.81 Dependence on supplemental oxygen; Z20.822 Contact with and (suspected) exposure to COVID-19; Z79.4 Long term (current) use of insulin
CPT/HCPCS: 36415; 71045; 71046; 80053; 82550; 82553; 82728; 82948; 83540; 83880; 84466; 84484; 85014; 85018; 85025; 87040; 87071; 87205; 93005; 94640; 94799; 99284; J0456; J0696; J1815; J2916; J7050

== ENCOUNTER → 2022-06-16 | Outpatient (CLI) | payer MEDICARE ==
[~2022-06-16] MED LIST changes: +CARAFATE1 GM PO; +CICLOPIROX15 GM TOP; +CLARITIN10 MG PO; +CLOTRIMAZOLE15 GM TOP; +DOXYCYCLINE HY100 MG PO; +ELIQUIS5 MG PO; +FEROSUL325 MG PO; +HUMALOG MI100 UNIT/2 SQ; +HYDROMORPHONE HC2 MG PO; +INSULIN LI100 UNIT/1; +INSULIN LI100 UNIT/1 SQ; +OCEAN104 ML; +SYMBICORT 16010.2 GM INH; +VITAMIN C 500500 MG PO; +VOLTAREN ARTHRI20 GM; +ZETIA10 MG PO
[2022-06-16 15:24] LABS: BASOPHILS # (AUTO) 0.1 (0.0-0.1); BASOPHILS % 0.4 % (0.0-1.0); EOSINOPHILS # (AUTO) 0.2 (0.0-0.4); EOSINOPHILS % 1.6 % (0.0-6.0); HEMATOCRIT 38.3 % (34.2-44.1); HEMOGLOBIN 10.9 g/dL (12.0-16.0); LYMPHOCYTES % 20.2 % (18.0-39.1); MEAN CORPUSCULAR HEMOGLOBIN 22.3 pg (28-32); MEAN CORPUSCULAR HGB CONC 28.5 g/dL (31-35); MEAN CORPUSCULAR VOLUME 78.3 fL (81-99); MONOCYTES # (AUTO) 1.1 (0.2-0.8); MONOCYTES % 7.2 % (4.4-11.3); NEUTROPHILS # (AUTO) 10.4 (2.1-6.9); NEUTROPHILS % 70.2 % (38.7-80.0); PLATELET COUNT 388 x10e3/uL (140-360); RED BLOOD COUNT 4.89 x10e6/uL (3.6-5.1); RED CELL DISTRIBUTION WIDTH 23.9 % (11.7-14.4)
== END ==
LOC: RAD 14:33
PROVIDERS: ATTEND Internal Medicine Pulmonary Disease
DX: Z87.01 Personal history of pneumonia (recurrent) (principal)
CPT/HCPCS: 36415; 71046; 85025